=== PATIENT | female | born 1945 | race Caucasian/White ===

== ENCOUNTER → 2018-05-23 | Outpatient (CLI) | payer MEDICARE ==
--- NOTE | 2018-05-23 15:58 | XR ---
Lumbosacral spine HISTORY: Low back pain 5 views of the lumbosacral spine Correlation CT abdomen pelvis 12/17/2015 There is a dextroscoliosis centered at the mid lumbar spine. Minimal anterolisthesis grade 1 L4-5. Mcmillan spect transitional vertebral body at the lumbosacral junction. There is multilevel spondylosis presen t. Sclerosis present in the posterior elements compatible with facet arthropathy. Vascular calcificat ions are present in the aortoiliac distribution. Loss of disc height at the intervertebral levels. IMPRESSION: Degenerative disc disease, spinal listhesis, facet arthropathy. Correlate with plain film prior to any intervention.
== END ==
LOC: RADXRMAIN 15:25
PROVIDERS: ATTEND Family Medicine
DX: M43.16 Spondylolisthesis, lumbar region (principal); M51.36 Other intervertebral disc degeneration, lumbar region; M46.96 Unspecified inflammatory spondylopathy, lumbar region
CPT/HCPCS: 72110

== ENCOUNTER → 2018-09-23 | Outpatient (CLI) | payer MEDICARE ==
--- NOTE | 2018-09-23 16:31 | MR ---
MRI CERVICAL SPINE: CLINICAL HISTORY: Spinal stenosis with myelopathy and ataxia per order. Headache with neck pain causi ng pain or weakness into both arms and fingers per patient. TECHNIQUE: Multiplanar, multisequence imaging of the cervical spine is performed without IV contrast. COMPARISON: MRI cervical spine March 27, 2014. FINDINGS: Coronal images redemonstrate slight S-shaped scoliotic curvature. Sagittal images of the ce rvical spine show the craniocervical junction to remain within normal limits. The cervical and upper thoracic spinal cord is normal in course, caliber, and signal. Vertebral alignment is anatomic. Th e vertebral body and intravertebral disk heights are normal. Posterior disc herniations effacing ant erior thecal sac at C4-C5 and C5-C6 levels on sagittal images. The bone marrow signal intensity is wi thin normal limits. Mild multilevel anterior spurring is present. Axial images show the C2-C3 level to remain within normal limits. Axial images at C3-C4 level show tiny central disc protrusion mildly effacing anterior thecal sac wit h uncovertebral facet degenerative changes bilaterally causing mild left greater than right neural fo raminal narrowing. Axial images at C4-C5 level show broad-based central disc protrusion effacing anterior thecal sac up to ventral surface of spinal cord on current study with advanced left-sided neural foraminal narrowin g and mild right-sided neural foraminal narrowing. There is progression from prior MRI noted. Axial images at C5-C6 level show left paracentral disc protrusion effacing anterior thecal sac up to ventral surface of spinal cord which is indented on axial image 23 with moderate left and mild right- sided neural foraminal narrowing seen, progression from prior MRI is noted. Axial images at C6-C7 and C7-T1 levels remain within normal limits. IMPRESSION: Redemonstration of degenerative changes C4-C5 and C5-C6 level with interval progression f rom prior MRI and asymmetric more prominent left-sided neural foraminal narrowing noted.
== END | disposition home or self-care (01) ==
LOC: RADMRIMAIN 15:45
PROVIDERS: ATTEND Psychiatry & Neurology Neurology
DX: M48.02 Spinal stenosis, cervical region (principal); M47.812 Spondylosis without myelopathy or radiculopathy, cervical region
CPT/HCPCS: 72141

== ENCOUNTER 2018-09-27 16:23 | Inpatient (IN) | payer MEDICARE ==
[2018-09-27] MEDS ORDERED: IBUPROFEN 600 MG TAB PO STA (17:32)
[2018-09-27] MEDS ORDERED: ACETAMINOPHEN TAB 500 MG TAB PO STA (17:32)
--- NOTE | 2018-09-27 17:40 | ED ---
General Adult HPI - General Chief complaint: Weakness Stated complaint: dizziness/dry cough Time Seen by Provider: 09/27/18 16:30 Source: patient, RN notes reviewed Mode of arrival: wheelchair Limitations: no limitations - History of Present Illness Initial comments: This is a 73-year-old female presents emergency Department with a past medical history of recent tremors. Patient states she started being worked up for those by neurologist and has had a recent MRI. Patient states over the last couple of days tremors of gotten considerably worse and she's also had the chills. Patient also states she's had a little bit of cough and has been having urinary incontinence which is normal but at a greater frequency the last 2 days. Patient complains of some abdominal fullness in the upper abdomen. Patient denies any nausea vomiting or diarrhea. Patient denies any sputum production with cough. Patient denies any chest pain or palpitations. Patient does complain of generalized weakness. Patient denies any headache patient denies numbness weakness patient denies any lightheadedness dizziness or near- syncopal episode. Patient states she has edema to both legs but no worse today than any other day. - Related Data Home Medications Medication Instructions Recorded Confirmed Cholecalciferol (Vitamin D3) 5,000 unit PO DAILY 09/03/14 09/27/18 [Vitamin D3] Metoprolol Tartrate [Lopressor] 100 mg PO BID 09/03/14 09/27/18 Nitroglycerin [Nitrostat] 0.4 mg PO Q5M PRN 09/03/14 09/27/18 Famotidine [Pepcid] 20 mg PO DAILY 09/27/18 09/27/18 Furosemide [Lasix] 20 mg PO MOWEFR 09/27/18 09/27/18 Levothyroxine Sodium [Synthroid] 112 mcg PO DAILY 09/27/18 09/27/18 Losartan Potassium 50 mg PO DAILY 09/27/18 09/27/18 Ranitidine HCl 150 mg PO BID 09/27/18 09/27/18 Warfarin Sodium 6 mg PO MOWEFR 09/27/18 09/27/18 Warfarin [Coumadin] 2.5 mg PO SUTUTHSA 09/27/18 09/27/18 Allergies Allergy/AdvReac Type Severity Reaction Status Date / Time erythromycin base Allergy Unknown Verified 09/27/18 16:56 [From E-Mycin] Penicillins Allergy Unknown Verified 09/27/18 16:56 Sulfa (Sulfonamide Allergy Unknown Verified 09/27/18 16:56 Antibiotics) adhesive AdvReac BRUISES, Verified 09/27/18 16:56 ITCHING hydrocodone AdvReac AVOIDS Verified 09/27/18 16:56 NARCOTICS D/T PERSONAL REASONS NITRO PATCHES AdvReac HEADACHES Uncoded 03/11/15 17:05 Review of Systems ROS Statement: Those systems with pertinent positive or pertinent negative responses have been documented in the HPI. ROS Other: All systems not noted in ROS Statement are negative. Past Medical History Past Medical History: Atrial Fibrillation, Fibromyalgia, GERD/Reflux, GI Bleed, Hearing Disorder / Deafness, Hyperlipidemia, Hypertension, Osteoarthritis (OA), Skin Disorder, Sleep Apnea/CPAP/BIPAP, Thyroid Disorder Additional Past Medical History / Comment(s): 02-26-15 ADM W/GI BLEED. Dizziness , Neck Pain; ODILON but no PAP; Gastric Ulcers, Hiatal Hernia; HX Graves dx. Anemia. Complex Vertebral Subluxation; EDEMA PATRICIA LEGS/FEET. GALLBLADDER PROB 2014. HX OF FALLS. ITCHING OF SKIN SINCE RECENT HOSPITAL STAY. History of Any Multi-Drug Resistant Organisms: None Reported Past Surgical History: Heart Catheterization, Orthopedic Surgery Additional Past Surgical History / Comment(s): Cardioversion for afib, PATRICIA KNEE arthroscopic surgeries, Spur removal R foot. Cataract removal patricia L eyes with ocular implants. R hand cyst removal, R foot toenail removal. Injections to neck /bilateral knees. Past Anesthesia/Blood Transfusion Reactions: Previous Problems w/ Anesthesia Additional Past Anesthesia/Blood Transfusion Reaction / Comment(s): Pt states after a knee surgery 2002 she had "trouble coming out of anesthesia and was really cold." Pt states she has not recieved blood. Past Psychological History: Depression Smoking Status: Unknown if ever smoked Past Alcohol Use History: Rare Past Drug Use History: None Reported - Past Family History Father Family Medical History: Coronary Artery Disease (CAD), Diabetes Mellitus, Liver Disease Additional Family Medical History / Comment(s): Father after recieving xray that damaged his liver. Mother Family Medical History: Dementia, Osteoarthritis (OA) Additional Family Medical History / Comment(s): Mother of alzhiemers at age 73yrs. General Exam - General Exam Comments Initial Comments: GENERAL: Patient is well-developed and well-nourished. Patient is nontoxic and well- hydrated and is in mild distress. ENT: Neck is soft and supple. No significant lymphadenopathy is noted. Oropharynx is clear. Moist mucous membranes. Neck has full range of motion without eliciting any pain. EYES: The sclera were anicteric and conjunctiva were pink and moist. Extraocular movements were intact and pupils were equal round and reactive to light. Eyelids were unremarkable. PULMONARY: Unlabored respirations. Good breath sounds bilaterally. No audible rales rhonchi or wheezing was noted. CARDIOVASCULAR: There is a regular rate and rhythm without any murmurs gallops or rubs. ABDOMEN: Soft and nontender with normal bowel sounds. SKIN: Skin is clear with no lesions or rashes and otherwise unremarkable. NEUROLOGIC: Patient is alert and oriented x3. Cranial nerves II through XII are grossly intact. Motor and sensory are also intact. Normal speech, volume and content. Symmetrical smile. MUSCULOSKELETAL: Normal extremities with adequate strength and full range of motion. No lower extremity swelling or edema. No calf tenderness. LYMPHATICS: No significant lymphadenopathy is noted PSYCHIATRIC: Normal psychiatric evaluation. Normal interpersonal interactions appears functionally intact in deals appropriately with others. No signs of depression. No signs of anxiety. Limitations: no limitations Course Vital Signs 09/27/18 09/27/18 09/27/18 16:26 17:14 17:39 Temperature 98.4 F 101.5 F H Pulse Rate 134 H Pulse Rate [ 107 H Neurology Teacher ] Respiratory 18 Rate Blood Pressure 159/94 O2 Sat by Pulse 97 Oximetry 09/27/18 09/27/18 18:09 19:21 Temperature 98.4 F Pulse Rate 105 H 100 Pulse Rate [ Neurology Teacher ] Respiratory 18 20 Rate Blood Pressure 162/82 152/91 O2 Sat by Pulse 98 98 Oximetry Medical Decision Making - Medical Decision Making EKG shows atrial for ablation with rapid ventricular response at 109 bpm QRS 78 QT interval 360 QTC is 484. - Lab Data Result diagrams: 09/27/18 17:00 09/27/18 17:00 Lab Results 09/27/18 09/27/18 09/27/18 Range/Units 17:00 17:00 17:00 WBC 6.0 (3.8-10.6) k/uL RBC 3.66 L (3.80-5.40) m/uL Hgb 11.7 (11.4-16.0) gm/dL Hct 36.8 (34.0-46.0) % MCV 100.5 H (80.0-100.0) fL MCH 32.0 (25.0-35.0) pg MCHC 31.9 (31.0-37.0) g/dL RDW 13.7 (11.5-15.5) % Plt Count 187 (150-450) k/uL Neutrophils % 75 % Lymphocytes % 12 % Monocytes % 10 % Eosinophils % 1 % Basophils % 0 % Neutrophils # 4.4 (1.3-7.7) k/uL Lymphocytes # 0.7 L (1.0-4.8) k/uL Monocytes # 0.6 (0-1.0) k/uL Eosinophils # 0.1 (0-0.7) k/uL Basophils # 0.0 (0-0.2) k/uL PT (9.0-12.0) sec INR (<1.2) APTT (22.0-30.0) sec Sodium 136 L (137-145) mmol/L Potassium 4.4 (3.5-5.1) mmol/L Chloride 103 (98-107) mmol/L Carbon Dioxide 23 (22-30) mmol/L Anion Gap 10 mmol/L BUN 16 (7-17) mg/dL Creatinine 0.66 (0.52-1.04) mg/dL Est GFR (CKD-EPI)AfAm >90 (>60 ml/min/1.73 sqM) Est GFR (CKD-EPI)NonAf 87 (>60 ml/min/1.73 sqM) Glucose 104 H (74-99) mg/dL Plasma Lactic Acid Walter (0.7-2.0) mmol/L Calcium 9.1 (8.4-10.2) mg/dL Total Bilirubin 1.1 (0.2-1.3) mg/dL AST 44 H (14-36) U/L ALT 32 (9-52) U/L Alkaline Phosphatase 73 (38-126) U/L Total Protein 7.1 (6.3-8.2) g/dL Albumin 3.9 (3.5-5.0) g/dL Urine Color Urine Appearance (Clear) Urine pH (5.0-8.0) Ur Specific [place] (1.001-1.035) Urine Protein (Negative) Urine Glucose (UA) (Negative) Urine Ketones (Negative) Urine Blood (Negative) Urine Nitrite (Negative) Urine Bilirubin (Negative) Urine Urobilinogen (<2.0) mg/dL Ur Leukocyte Esterase (Negative) Urine RBC (0-5) /hpf Urine WBC (0-5) /hpf Ur Squamous Epith Cells (0-4) /hpf Urine Bacteria (None) /hpf Urine Mucus (None) /hpf Influenza Type A RNA Detected H (Not Detectd) Influenza Type B (PCR) Not Detected (Not Detectd) 09/27/18 09/27/18 09/27/18 Range/Units 17:00 17:00 19:15 WBC (3.8-10.6) k/uL RBC (3.80-5.40) m/uL Hgb (11.4-16.0) gm/dL Hct (34.0-46.0) % MCV (80.0-100.0) fL MCH (25.0-35.0) pg MCHC (31.0-37.0) g/dL RDW (11.5-15.5) % Plt Count (150-450) k/uL Neutrophils % % Lymphocytes % % Monocytes % % Eosinophils % % Basophils % % Neutrophils # (1.3-7.7) k/uL Lymphocytes # (1.0-4.8) k/uL Monocytes # (0-1.0) k/uL Eosinophils # (0-0.7) k/uL Basophils # (0-0.2) k/uL PT 29.1 H (9.0-12.0) sec INR 3.0 H (<1.2) APTT 31.0 H (22.0-30.0) sec Sodium (137-145) mmol/L Potassium (3.5-5.1) mmol/L Chloride (98-107) mmol/L Carbon Dioxide (22-30) mmol/L Anion Gap mmol/L BUN (7-17) mg/dL Creatinine (0.52-1.04) mg/dL Est GFR (CKD-EPI)AfAm (>60 ml/min/1.73 sqM) Est GFR (CKD-EPI)NonAf (>60 ml/min/1.73 sqM) Glucose (74-99) mg/dL Plasma Lactic Acid Walter 1.7 (0.7-2.0) mmol/L Calcium (8.4-10.2) mg/dL Total Bilirubin (0.2-1.3) mg/dL AST (14-36) U/L ALT (9-52) U/L Alkaline Phosphatase (38-126) U/L Total Protein (6.3-8.2) g/dL Albumin (3.5-5.0) g/dL Urine Color Yellow Urine Appearance Cloudy H (Clear) Urine pH 8.5 H (5.0-8.0) Ur Specific [place] 1.019 (1.001-1.035) Urine Protein Trace H (Negative) Urine Glucose (UA) Negative (Negative) Urine Ketones 1+ H (Negative) Urine Blood Trace H (Negative) Urine Nitrite Negative (Negative) Urine Bilirubin Negative (Negative) Urine Urobilinogen <2.0 (<2.0) mg/dL Ur Leukocyte Esterase Negative (Negative) Urine RBC 13 H (0-5) /hpf Urine WBC 2 (0-5) /hpf Ur Squamous Epith Cells 3 (0-4) /hpf Urine Bacteria Occasional H (None) /hpf Urine Mucus Occasional H (None) /hpf Influenza Type A RNA (Not Detectd) Influenza Type B (PCR) (Not Detectd) Disposition Clinical Impression: Influenza, Generalized weakness Disposition: ADMITTED IP TO THIS HOSP Referrals: Troy Benoit DO [Primary Care Provider] - 1-2 days Time of Disposition: 21:02
[2018-09-27 17:58] LABS: Basophils % (A) 0 %; Eosinophils # (A) 0.1 k/uL (0-0.7); Eosinophils % (A) 1 %; HCT 36.8 % (34.0-46.0); HGB 11.7 gm/dL (11.4-16.0); Lymphocytes # (A) 0.7 k/uL (1.0-4.8); Lymphocytes % (A) 12 %; MCHC 31.9 g/dL (31.0-37.0); MCV 100.5 fL (80.0-100.0); Mean Platelet Volume 6.7; Monocytes # (A) 0.6 k/uL (0-1.0); Monocytes % (A) 10 %; Neutrophils # (A) 4.4 k/uL (1.3-7.7); Neutrophils % (A) 75 %; Platelet Count 187 k/uL (150-450); RBC 3.66 m/uL (3.80-5.40); RDW 13.7 % (11.5-15.5)
[2018-09-27 18:04] LABS: Prothrombin Time 29.1 sec (9.0-12.0)
[2018-09-27 18:11] LABS: ALT 32 U/L (9-52); AST 44 U/L (14-36); Albumin 3.9 g/dL (3.5-5.0); Alkaline Phosphatase 73 U/L (38-126); Anion Gap 10 mmol/L; Blood Urea Nitrogen 16 mg/dL (7-17); Calcium 9.1 mg/dL (8.4-10.2); Carbon Dioxide 23 mmol/L (22-30); Chloride 103 mmol/L (98-107); Glucose 104 mg/dL (74-99); Sodium 136 mmol/L (137-145); Total Bilirubin 1.1 mg/dL (0.2-1.3); Total Protein 7.1 g/dL (6.3-8.2)
[2018-09-27 18:16] LABS: Potassium 4.4 mmol/L (3.5-5.1)
[2018-09-27 19:41] LABS: Appearance,Urine Cloudy (Clear); Bacteria,Urine Occasional /hpf; Bilirubin,Urine Negative (Negative); Blood,Urine Trace (Negative); Color,Urine Yellow; Glucose,Urine (UA) Negative (Negative); Ketones,Urine 1+ (Negative); Leukocyte Esterase,Urine Negative (Negative); Mucus,Urine Occasional /hpf; Nitrite,Urine Negative (Negative); PH, Urine 8.5 (5.0-8.0); Protein,Urine Trace (Negative); RBC,Urine 13 /hpf (0-5); Specific Gravity,Urine 1.019 (1.001-1.035); Squamous Epithelial Cell,Urine 3 /hpf (0-4); Urobilinogen,Urine <2.0 mg/dL (<2.0); WBC,Urine 2 /hpf (0-5)
--- NOTE | 2018-09-27 19:48 | XR ---
EXAMINATION: XR chest 2V DATE AND TIME: 09/27/2018 7:41 PM CLINICAL INDICATION: PHH; Difficulty breathing TECHNIQUE: Departmental protocol COMPARISON: None FINDINGS: The lungs are clear. The pleural spaces are negative. The cardiac silhouette is moderately enlarged. The aorta is tortuous. The skeletal structures and sof t tissues are negative for acute findings. IMPRESSION: NO ACUTE PLEURAL-PARENCHYMAL PROCESS.
[2018-09-27] MEDS ORDERED: OSELTAMIVIR 75 MG CAP PO STA (21:01)
[2018-09-27] MEDS ORDERED: SODIUM CHLORIDE 0.9% 1,000 ML IV ONE (21:02)
[2018-09-27 22:58] VITALS: BMI 31.4
[2018-09-28] MEDS ORDERED: diphenhydrAMINE 25 MG CAP PO PRN (00:03)
[2018-09-28] MEDS: METOPROLOL TARTRATE 50 MG TAB PO SCH ×3 (00:36→20:09)
[2018-09-28] MEDS: ACETAMINOPHEN TAB 325 MG TAB PO PRN ×3 (04:19→20:09)
[2018-09-28] MEDS: LEVOTHYROXINE 112 MCG TAB PO SCH (06:08)
[2018-09-28 07:26] LABS: INR 2.3 (<1.2); Prothrombin Time 22.7 sec (9.0-12.0)
[2018-09-28] MEDS: OSELTAMIVIR 75 MG CAP PO SCH ×2 (08:47→20:08)
[2018-09-28] MEDS: LOSARTAN 50 MG TAB PO SCH (08:47)
[2018-09-28] MEDS: FAMOTIDINE 20 MG TAB PO SCH (08:48)
--- NOTE | 2018-09-28 11:48 | P.HPIM ---
History of Present Illness this is a pleasant 73 years old female with past medical history of atrial fibrillation on warfarin, COPD, fibromyalgia, GERD, GI bleed, HTN, HLP, hypothyroidism, as her arthritis.patient presents with a few days of generalized weakness and body aches, headache, dry cough was started making some clear fluids today. Patient denies chest pain. On examination she has expiratory wheezing, scattered on both sides.however she is saturating 97% on 4 L. Also she has fever on admission on admission patient had fever of 101.5. CBC unremarkable with normal WBC, unremarkable BMP with normal liver enzymes. INR 2.3. And detected influenza antigen.chest x-ray no acute process. EKG atrial fibrillation with RVRat 109 Review of Systems CONSTITUTIONAL: No fever, no malaise, no fatigue. HEENT: No recent visual problems or hearing problems. Denied any sore throat. CARDIOVASCULAR: No orthopnea, PND, no palpitations, no syncope. PULMONARY: No shortness of breath, no cough, no hemoptysis. GASTROINTESTINAL: No diarrhea, no nausea, no vomiting, no abdominal pain. Normoactive bowel sounds. NEUROLOGICAL: No headaches, no weakness, no numbness. HEMATOLOGICAL: Denies any bleeding or petechiae. GENITOURINARY: Denies any burning micturition, frequency, or urgency. MUSCULOSKELETAL/RHEUMATOLOGICAL: Denies any joint pain, swelling, or any muscle pain. ENDOCRINE: Denies any polyuria or polydipsia. Past Medical History Past Medical History: Atrial Fibrillation, COPD, Fibromyalgia, GERD/Reflux, GI Bleed, Hyperlipidemia, Hypertension, Osteoarthritis (OA), Skin Disorder, Sleep Apnea/CPAP/BIPAP, Thyroid Disorder Additional Past Medical History / Comment(s): 02-26-15 ADM W/GI BLEED. Dizziness , Neck Pain; ODILON but no PAP; Gastric Ulcers, Hiatal Hernia; HX Graves dx. Anemia. Complex Vertebral Subluxation; EDEMA PATRICIA LEGS/FEET. GALLBLADDER PROB 2014. HX OF FALLS. ITCHING OF SKIN SINCE RECENT HOSPITAL STAY. Carpal tunnel History of Any Multi-Drug Resistant Organisms: None Reported Past Surgical History: Heart Catheterization, Orthopedic Surgery Additional Past Surgical History / Comment(s): Cardioversion for afib, PATRICIA KNEE arthroscopic surgeries, Spur removal R foot. Cataract removal patricia L eyes with ocular implants. R hand cyst removal, R foot toenail removal. Injections to neck /bilateral knees. Past Anesthesia/Blood Transfusion Reactions: Previous Problems w/ Anesthesia Additional Past Anesthesia/Blood Transfusion Reaction / Comment(s): Pt states after a knee surgery 2002 she had "trouble coming out of anesthesia and was really cold." Pt states she has not recieved blood. 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 Smoking Status: Former smoker Past Alcohol Use History: Rare Past Drug Use History: None Reported - Past Family History Father Family Medical History: Coronary Artery Disease (CAD), Diabetes Mellitus, Liver Disease Additional Family Medical History / Comment(s): Father after recieving xray that damaged his liver. Mother Family Medical History: Dementia, Osteoarthritis (OA) Additional Family Medical History / Comment(s): Mother of alzhiemers at age 73yrs. Medications and Allergies Home Medications Medication Instructions Recorded Confirmed Type Cholecalciferol (Vitamin D3) 5,000 unit PO DAILY 09/03/14 09/27/18 History [Vitamin D3] Metoprolol Tartrate [Lopressor] 100 mg PO BID 09/03/14 09/27/18 History Nitroglycerin [Nitrostat] 0.4 mg PO Q5M PRN 09/03/14 09/27/18 History Famotidine [Pepcid] 20 mg PO DAILY 09/27/18 09/27/18 History Furosemide [Lasix] 20 mg PO MOWEFR 09/27/18 09/27/18 History Levothyroxine Sodium [Synthroid] 112 mcg PO DAILY 09/27/18 09/27/18 History Losartan Potassium 50 mg PO DAILY 09/27/18 09/27/18 History Ranitidine HCl 150 mg PO BID 09/27/18 09/27/18 History Warfarin Sodium 6 mg PO MOWEFR 09/27/18 09/27/18 History Warfarin [Coumadin] 2.5 mg PO SUTUTHSA 09/27/18 09/27/18 History Allergies Allergy/AdvReac Type Severity Reaction Status Date / Time erythromycin base Allergy Unknown Verified 09/27/18 16:56 [From E-Mycin] Penicillins Allergy Unknown Verified 09/27/18 16:56 Sulfa (Sulfonamide Allergy Unknown Verified 09/27/18 16:56 Antibiotics) adhesive AdvReac BRUISES, Verified 09/27/18 16:56 ITCHING hydrocodone AdvReac AVOIDS Verified 09/27/18 16:56 NARCOTICS D/T PERSONAL REASONS NITRO PATCHES AdvReac HEADACHES Uncoded 03/11/15 17:05 Physical Exam Vitals: Vital Signs Temp Pulse Pulse Pulse Resp BP BP 09/28/18 08:01 09/28/18 06:11 99.2 F 09/28/18 04:15 100.7 F H 79 20 158/92 09/28/18 00:00 108 H 24 09/27/18 22:36 97 F L 118 H 18 158/79 09/27/18 21:56 98.3 F 107 H 20 146/98 09/27/18 21:25 109 H 20 121/55 09/27/18 19:21 98.4 F 100 20 152/91 09/27/18 18:09 105 H 18 162/82 09/27/18 17:39 107 H 09/27/18 17:14 101.5 F H 09/27/18 16:26 98.4 F 134 H 18 159/94 Pulse Ox 09/28/18 08:01 97 09/28/18 06:11 09/28/18 04:15 99 09/28/18 00:00 09/27/18 22:36 97 09/27/18 21:56 100 09/27/18 21:25 99 09/27/18 19:21 98 09/27/18 18:09 98 09/27/18 17:39 09/27/18 17:14 09/27/18 16:26 97 Intake and Output 09/27/18 09/28/18 09/28/18 22:59 06:59 14:59 Intake Total 100 300 Balance 100 300 Intake: Amount of Fluid Infused ( 100 ml) Intake, IV Titration 300 Amount Sodium Chloride 0.9% 1, 300 000 ml @ 75 mls/hr IV . [id number] ONE Rx#:[id number] Other: Voiding Method Toilet Toilet Diaper Diaper # Voids 1 Weight 91 kg GENERAL: The patient is alert and oriented x3, not in any acute distress. Well developed, well nourished. HEENT: Pupils are round and equally reacting to light. EOMI. No scleral icterus. No conjunctival pallor. Normocephalic, atraumatic. No pharyngeal erythema. No thyromegaly. CARDIOVASCULAR: S1 and S2 present. No murmurs, rubs, or gallops. PULMONARY: Chest is clear to auscultation, no wheezing or crackles. ABDOMEN: Soft, nontender, nondistended, normoactive bowel sounds. No palpable organomegaly. MUSCULOSKELETAL: No joint swelling or deformity. EXTREMITIES: No cyanosis, clubbing, or pedal edema. NEUROLOGICAL: Gross neurological examination did not reveal any focal deficits. SKIN: No rashes. Results CBC & Chem 7: 09/27/18 17:00 09/27/18 17:00 Labs: Abnormal Lab Results - Last 24 Hours (Table) 09/27/18 09/27/18 09/27/18 Range/Units 17:00 17:00 17:00 RBC 3.66 L (3.80-5.40) m/uL MCV 100.5 H (80.0-100.0) fL Lymphocytes # 0.7 L (1.0-4.8) k/uL PT (9.0-12.0) sec INR (<1.2) APTT (22.0-30.0) sec Sodium 136 L (137-145) mmol/L Glucose 104 H (74-99) mg/dL AST 44 H (14-36) U/L Urine Appearance (Clear) Urine pH (5.0-8.0) Urine Protein (Negative) Urine Ketones (Negative) Urine Blood (Negative) Urine RBC (0-5) /hpf Urine Bacteria (None) /hpf Urine Mucus (None) /hpf Influenza Type A RNA Detected H (Not Detectd) 09/27/18 09/27/18 09/28/18 Range/Units 17:00 19:15 07:09 RBC (3.80-5.40) m/uL MCV (80.0-100.0) fL Lymphocytes # (1.0-4.8) k/uL PT 29.1 H 22.7 H (9.0-12.0) sec INR 3.0 H 2.3 H (<1.2) APTT 31.0 H (22.0-30.0) sec Sodium (137-145) mmol/L Glucose (74-99) mg/dL AST (14-36) U/L Urine Appearance Cloudy H (Clear) Urine pH 8.5 H (5.0-8.0) Urine Protein Trace H (Negative) Urine Ketones 1+ H (Negative) Urine Blood Trace H (Negative) Urine RBC 13 H (0-5) /hpf Urine Bacteria Occasional H (None) /hpf Urine Mucus Occasional H (None) /hpf Influenza Type A RNA (Not Detectd) Microbiology - Last 24 Hours (Table) 09/27/18 19:15 Urine Culture - Preliminary Urine,Clean Catch Thrombosis Risk Factor Assmnt - Choose All That Apply Any of the Below Risk Factors Present?: Yes Each Factor Represents 1 point: Abnormal pulmonary function (COPD), Obesity ( BMI >25) Other Risk Factors: Yes Each Risk Factor Represents 2 Points: Age 61-74 years Other congenital or acquired thrombophilia - If yes, enter type in comment: No Thrombosis Risk Factor Assessment Total Risk Factor Score: 4 Thrombosis Risk Factor Assessment Level: Moderate Risk Assessment and Plan Assessment: acute influenza generalized weakness History of COPD in mildacute exacerbation chronic atrial fibrillation , with mild RVR.on warfarin History of abnormal IG History of GERD Essential hypertension Hyperlipidemia Hypothyroidism History of GI bleed Plan: this is a pleasant 73 years old female who presents because of influenza and generalized weakness.continue with Tamiflu and ceftriaxone, since sputum for culture, continue with steroids and IV fluids. Call physical therapy evaluation Labs and medication were reviewed.. Continue same treatment. Continue with symptomatic treatment. Resume home medication. Monitor lytes and vitals. DVT and GI prophylaxis. Further recommendations of the clinical course of the patient DVT prophylaxis: warfarin GI Prophylaxis: Pepcid PT/OT: Pending Prognosis is guarded
[2018-09-28] MEDS: SODIUM CHLORIDE 0.9% 1,000 ML IV SCH (15:36)
[2018-09-28] MEDS: methylPREDNISolone SOD SUCCI 40 MG/ML 1 ML VIAL IV SCH ×2 (17:24→23:10)
[2018-09-28] MEDS ORDERED: WARFARIN 3 MG TAB PO SCH ×2 (18:00)
[2018-09-28] MEDS ORDERED: IPRATROPIUM-ALBUTEROL 3 ML NEB INHALATION PRN (19:33)
[2018-09-28] MEDS: IPRATROPIUM-ALBUTEROL 3 ML NEB INHALATION SCH (20:30)
[2018-09-28] MEDS ORDERED: FUROSEMIDE 10 MG/ML 2 ML VIAL IV ONE (21:06)
[2018-09-28] MEDS ORDERED: IBUPROFEN 600 MG TAB PO SCH (22:00)
[2018-09-28] MEDS: BENZOCAINE/MENTHOL LOZENG 1 EACH LOZENGE MUCOUS MEM PRN (23:06)
[2018-09-28] MEDS ORDERED: IBUPROFEN 600 MG TAB PO PRN (23:08)
[2018-09-29] MEDS: ACETAMINOPHEN TAB 325 MG TAB PO PRN ×2 (01:20→20:04)
[2018-09-29] MEDS: SODIUM CHLORIDE 0.9% 1,000 ML IV SCH ×2 (01:20→15:58)
[2018-09-29] MEDS: LEVOTHYROXINE 112 MCG TAB PO SCH (06:00)
[2018-09-29 07:44] LABS: Basophils % (A) 0 %; Eosinophils % (A) 0 %; HCT 36.7 % (34.0-46.0); HGB 11.5 gm/dL (11.4-16.0); Lymphocytes # (A) 0.6 k/uL (1.0-4.8); Lymphocytes % (A) 13 %; MCH 32.2 pg (25.0-35.0); MCHC 31.3 g/dL (31.0-37.0); MCV 102.8 fL (80.0-100.0); Macrocytosis Slight; Mean Platelet Volume 7.1; Monocytes # (A) 0.1 k/uL (0-1.0); Monocytes % (A) 3 %; Neutrophils % (A) 83 %; Platelet Count 143 k/uL (150-450); RBC 3.57 m/uL (3.80-5.40); RDW 13.7 % (11.5-15.5); WBC 4.8 k/uL (3.8-10.6)
[2018-09-29 07:47] LABS: INR 1.7 (<1.2); Prothrombin Time 17.2 sec (9.0-12.0)
[2018-09-29 07:54] LABS: Anion Gap 8 mmol/L; Blood Urea Nitrogen 18 mg/dL (7-17); Calcium 8.4 mg/dL (8.4-10.2); Carbon Dioxide 27 mmol/L (22-30); Chloride 103 mmol/L (98-107); Glucose 167 mg/dL (74-99); Potassium 4.3 mmol/L (3.5-5.1); Sodium 138 mmol/L (137-145)
--- NOTE | 2018-09-29 08:05 | P.PN ---
Subjective this is a pleasant 73 years old female with past medical history of atrial fibrillation on warfarin, COPD, fibromyalgia, GERD, GI bleed, HTN, HLP, hypothyroidism, as her arthritis.patient presents with a few days of generalized weakness and body aches, headache, dry cough was started making some clear fluids today. Patient denies chest pain. On examination she has expiratory wheezing, scattered on both sides.however she is saturating 97% on 4 L. Also she has fever on admission on admission patient had fever of 101.5. CBC unremarkable with normal WBC, unremarkable BMP with normal liver enzymes. INR 2.3. And detected influenza antigen.chest x-ray no acute process. EKG atrial fibrillation with RVRat 109 09/29/2018 Patient still complains of generalized weakness and dyspneic. She is coughing and start making some white phlegm, and we will send sputum for culture. No abdominal pain, nausea vomiting or diarrhea. Patient denies chest pain however she still complaining of from myalgia all over and mild to moderate headache. She feels general malaise. She had fever yesterday of 103.5 F. The synovitis looks stable. Continue with IV hydration and symptomatic treatment. We will check chest x-ray this morning. And we'll give her an extra dose of Coumadin for her atrial fibrillation as her INR today is at 1.7. Keep monitor labs and INR levels. Continue with steroids and Tamiflu which she is taking currently. Review of systems CONSTITUTIONAL: No fever, no malaise, no fatigue. HEENT: No recent visual problems or hearing problems. Denied any sore throat. CARDIOVASCULAR: No orthopnea, PND, no palpitations, no syncope. PULMONARY: no hemoptysis. GASTROINTESTINAL: No diarrhea, no nausea, no vomiting, no abdominal pain. Normoactive bowel sounds. NEUROLOGICAL: No headaches, no weakness, no numbness. HEMATOLOGICAL: Denies any bleeding or petechiae. GENITOURINARY: Denies any burning micturition, frequency, or urgency. ENDOCRINE: Denies any polyuria or polydipsia. Medication: Tylenol, albuterol, ceftriaxone, Benadryl, Pepcid, levothyroxine, losartan, Solu-Medrol, metoprolol, Tamiflu, normal saline, and warfarin. Objective - Vital Signs Vital signs: Vital Signs Temp 97.3 F L 09/29/18 06:02 Pulse 80 09/29/18 05:00 Resp 18 09/29/18 05:00 BP 145/76 09/29/18 05:00 Pulse Ox 97 09/29/18 05:00 Intake & Output 09/28/18 09/29/18 09/29/18 18:59 06:59 18:59 Intake Total 600 Output Total 1200 Balance -600 Weight 100 kg Intake: Intake, IV Titration 600 Amount Sodium Chloride 0.9% 1, 600 000 ml @ 75 mls/hr IV . [id number] [facility] Rx#:[id number] Output: Urine 1200 Other: Voiding Method Toilet Toilet Diaper Diaper # Voids 2 3 - Exam -GENERAL: The patient is alert and oriented x3, not in any acute distress. Generally weak HEENT: Pupils are round and equally reacting to light. EOMI. No scleral icterus. No conjunctival pallor. Normocephalic, atraumatic. No pharyngeal erythema. No thyromegaly. CARDIOVASCULAR: S1 and S2 present. No murmurs, rubs, or gallops. PULMONARY: Chest is clear to auscultation, no wheezing or crackles. ABDOMEN: Soft, nontender, nondistended, normoactive bowel sounds. No palpable organomegaly. MUSCULOSKELETAL: No joint swelling or deformity. EXTREMITIES: No cyanosis, clubbing, or pedal edema. NEUROLOGICAL: Gross neurological examination did not reveal any focal deficits. SKIN: No rashes. - Labs CBC & Chem 7: 09/29/18 07:09 09/29/18 07:09 Labs: Abnormal Lab Results - Last 24 Hours (Table) 09/29/18 09/29/18 09/29/18 Range/Units 07:09 07:09 07:09 RBC 3.57 L (3.80-5.40) m/uL MCV 102.8 H (80.0-100.0) fL Plt Count 143 L (150-450) k/uL Lymphocytes # 0.6 L (1.0-4.8) k/uL PT 17.2 H (9.0-12.0) sec INR 1.7 H (<1.2) BUN 18 H (7-17) mg/dL Glucose 167 H (74-99) mg/dL Microbiology - Last 24 Hours (Table) 09/27/18 19:15 Urine Culture - Final Urine,Clean Catch 09/27/18 17:00 Blood Culture - Preliminary Blood No Growth after 24 hours Assessment and Plan Assessment: acute influenza generalized weakness and malaise History of COPD in mild acute exacerbation chronic atrial fibrillation , with mild RVR.on warfarin History of GERD Essential hypertension Hyperlipidemia Hypothyroidism History of GI bleed Plan: this is a pleasant 73 years old female who presents because of influenza and generalized weakness.continue with Tamiflu and ceftriaxone, since sputum for culture, continue with steroids and IV fluids. Call physical therapy evaluation Labs and medication were reviewed.. Continue same treatment. Continue with symptomatic treatment. Resume home medication. Monitor lytes and vitals. DVT and GI prophylaxis. Further recommendations of the clinical course of the patient DVT prophylaxis: warfarin GI Prophylaxis: Pepcid PT/OT: Pending Prognosis is guarded
[2018-09-29] MEDS: methylPREDNISolone SOD SUCCI 40 MG/ML 1 ML VIAL IV SCH ×2 (08:13→15:59)
[2018-09-29] MEDS: FAMOTIDINE 20 MG TAB PO SCH (08:13)
[2018-09-29] MEDS: METOPROLOL TARTRATE 50 MG TAB PO SCH ×2 (08:13→18:52)
[2018-09-29] MEDS: OSELTAMIVIR 75 MG CAP PO SCH ×2 (08:13→20:04)
[2018-09-29] MEDS: LOSARTAN 50 MG TAB PO SCH (08:13)
[2018-09-29] MEDS: IPRATROPIUM-ALBUTEROL 3 ML NEB INHALATION SCH ×4 (08:53→20:31)
--- NOTE | 2018-09-29 09:09 | XR ---
EXAMINATION TYPE: XR chest 1V DATE OF EXAM: 09/29/2018 COMPARISON: Prior chest 09/27/2018 HISTORY: Follow-up influenza TECHNIQUE: Single frontal view of the chest is obtained. FINDINGS: Heart is enlarged. Aorta is dense. No evident airspace disease, pneumothorax, or pleural e ffusion. IMPRESSION: Cardiomegaly.
[2018-09-29] MEDS: BENZOCAINE/MENTHOL LOZENG 1 EACH LOZENGE MUCOUS MEM PRN ×3 (15:58→22:30)
[2018-09-29] MEDS ORDERED: WARFARIN 2.5 MG TAB PO ONE (18:00)
[2018-09-29] MEDS ORDERED: WARFARIN 2.5 MG TAB PO SCH ×2 (18:00)
[2018-09-29] MEDS ORDERED: DILTIAZEM ORAL 30 MG TAB PO STA (20:33)
[2018-09-30] MEDS: methylPREDNISolone SOD SUCCI 40 MG/ML 1 ML VIAL IV SCH ×4 (00:35→23:55)
[2018-09-30] MEDS: SODIUM CHLORIDE 0.9% 1,000 ML IV SCH ×2 (04:13→16:05)
[2018-09-30] MEDS: LEVOTHYROXINE 112 MCG TAB PO SCH (05:03)
[2018-09-30] MEDS ORDERED: DILTIAZEM ORAL 30 MG TAB PO PRN (06:32)
[2018-09-30] MEDS: IPRATROPIUM-ALBUTEROL 3 ML NEB INHALATION SCH ×4 (08:03→19:49)
[2018-09-30 08:30] LABS: Basophils % (A) 0 %; Eosinophils % (A) 0 %; HCT 36.7 % (34.0-46.0); HGB 11.9 gm/dL (11.4-16.0); Lymphocytes # (A) 0.9 k/uL (1.0-4.8); Lymphocytes % (A) 10 %; MCH 32.8 pg (25.0-35.0); MCHC 32.6 g/dL (31.0-37.0); MCV 100.8 fL (80.0-100.0); Macrocytosis Slight; Mean Platelet Volume 6.6; Monocytes # (A) 0.4 k/uL (0-1.0); Monocytes % (A) 4 %; Neutrophils # (A) 8.5 k/uL (1.3-7.7); Neutrophils % (A) 86 %; Platelet Count 197 k/uL (150-450); RBC 3.64 m/uL (3.80-5.40); RDW 13.7 % (11.5-15.5); WBC 9.9 k/uL (3.8-10.6)
[2018-09-30] MEDS ORDERED: Phenol 1.4% Sore Throat Spray Bottle MUCOUS MEM PRN (08:33)
[2018-09-30 08:34] LABS: Prothrombin Time 19.8 sec (9.0-12.0)
[2018-09-30 08:40] LABS: Anion Gap 12 mmol/L; Blood Urea Nitrogen 23 mg/dL (7-17); Calcium 8.9 mg/dL (8.4-10.2); Carbon Dioxide 26 mmol/L (22-30); Chloride 105 mmol/L (98-107); Glucose 144 mg/dL (74-99); Potassium 4.6 mmol/L (3.5-5.1); Sodium 143 mmol/L (137-145)
[2018-09-30] MEDS: DOCUSATE 100 MG CAP PO SCH (09:22)
[2018-09-30] MEDS: OSELTAMIVIR 75 MG CAP PO SCH ×2 (09:23→22:02)
[2018-09-30] MEDS: LOSARTAN 50 MG TAB PO SCH (09:23)
[2018-09-30] MEDS: FAMOTIDINE 20 MG TAB PO SCH (09:23)
[2018-09-30] MEDS: METOPROLOL TARTRATE 50 MG TAB PO SCH ×2 (09:23→22:01)
[2018-09-30] MEDS: BENZOCAINE/MENTHOL LOZENG 1 EACH LOZENGE MUCOUS MEM PRN (09:23)
[2018-09-30] MEDS: ACETAMINOPHEN TAB 325 MG TAB PO PRN (09:31)
--- NOTE | 2018-09-30 12:12 | P.PN ---
Subjective this is a pleasant 73 years old female with past medical history of atrial fibrillation on warfarin, COPD, fibromyalgia, GERD, GI bleed, HTN, HLP, hypothyroidism, as her arthritis.patient presents with a few days of generalized weakness and body aches, headache, dry cough was started making some clear fluids today. Patient denies chest pain. On examination she has expiratory wheezing, scattered on both sides.however she is saturating 97% on 4 L. Also she has fever on admission on admission patient had fever of 101.5. CBC unremarkable with normal WBC, unremarkable BMP with normal liver enzymes. INR 2.3. And detected influenza antigen.chest x-ray no acute process. EKG atrial fibrillation with RVRat 109 09/29/2018 Patient still complains of generalized weakness and dyspneic. She is coughing and start making some white phlegm, and we will send sputum for culture. No abdominal pain, nausea vomiting or diarrhea. Patient denies chest pain however she still complaining of from myalgia all over and mild to moderate headache. She feels general malaise. She had fever yesterday of 103.5 F. The synovitis looks stable. Continue with IV hydration and symptomatic treatment. We will check chest x-ray this morning. And we'll give her an extra dose of Coumadin for her atrial fibrillation as her INR today is at 1.7. Keep monitor labs and INR levels. Continue with steroids and Tamiflu which she is taking currently. 09/30/2018 Patient today is much more awake and alert, back to her baseline and she can interact with her plan of care very efficiently. She still feeling generally weak and some dyspnea. The peak chest x-ray was negative. No more fever. patient developed tachycardia with A. fib and RVR yesterday. Her current heart rate is 106. Her labs look stable. INR today is 2.0. As she is on Coumadin. I feel patient can be discharged today, However she needs to go to rehab for more strengthening and exercise and physical therapy. bench worker helper on the case , pending placement Review of systems CONSTITUTIONAL: No fever, no malaise, no fatigue. HEENT: No recent visual problems or hearing problems. Denied any sore throat. CARDIOVASCULAR: No orthopnea, PND, no palpitations, no syncope. PULMONARY: no hemoptysis. GASTROINTESTINAL: No diarrhea, no nausea, no vomiting, no abdominal pain. Normoactive bowel sounds. NEUROLOGICAL: No headaches, no weakness, no numbness. HEMATOLOGICAL: Denies any bleeding or petechiae. GENITOURINARY: Denies any burning micturition, frequency, or urgency. ENDOCRINE: Denies any polyuria or polydipsia. Medication: Tylenol, albuterol, ceftriaxone, Benadryl, Pepcid, levothyroxine, losartan, Solu-Medrol, metoprolol, Tamiflu, normal saline, and warfarin. Objective - Vital Signs Vital signs: Vital Signs Temp 97.6 F 09/30/18 04:52 Pulse 106 H 09/30/18 04:52 Resp 16 09/30/18 04:52 BP 173/95 09/30/18 04:52 Pulse Ox 95 09/30/18 04:52 Intake & Output 09/29/18 09/30/18 09/30/18 18:59 06:59 18:59 Other: Voiding Method Toilet Diaper # Voids 2 1 - Exam -GENERAL: The patient is alert and oriented x3, not in any acute distress. Generally weak HEENT: Pupils are round and equally reacting to light. EOMI. No scleral icterus. No conjunctival pallor. Normocephalic, atraumatic. No pharyngeal erythema. No thyromegaly. CARDIOVASCULAR: S1 and S2 present. No murmurs, rubs, or gallops. PULMONARY: Chest is clear to auscultation, no wheezing or crackles. ABDOMEN: Soft, nontender, nondistended, normoactive bowel sounds. No palpable organomegaly. MUSCULOSKELETAL: No joint swelling or deformity. EXTREMITIES: No cyanosis, clubbing, or pedal edema. NEUROLOGICAL: Gross neurological examination did not reveal any focal deficits. SKIN: No rashes. - Labs CBC & Chem 7: 09/30/18 07:52 09/30/18 07:52 Labs: Abnormal Lab Results - Last 24 Hours (Table) 09/30/18 09/30/18 09/30/18 Range/Units 07:52 07:52 07:52 RBC 3.64 L (3.80-5.40) m/uL MCV 100.8 H (80.0-100.0) fL Neutrophils # 8.5 H (1.3-7.7) k/uL Lymphocytes # 0.9 L (1.0-4.8) k/uL PT 19.8 H (9.0-12.0) sec INR 2.0 H (<1.2) BUN 23 H (7-17) mg/dL Glucose 144 H (74-99) mg/dL Microbiology - Last 24 Hours (Table) 09/27/18 17:00 Blood Culture - Preliminary Blood No Growth after 48 hours Assessment and Plan Assessment: acute influenza generalized weakness and malaise History of COPD in mild acute exacerbation chronic atrial fibrillation , with mild RVR.on warfarin History of GERD Essential hypertension Hyperlipidemia Hypothyroidism History of GI bleed Plan: this is a pleasant 73 years old female who presents because of influenza and generalized weakness.continue with Tamiflu and ceftriaxone, since sputum for culture, continue with steroids and IV fluids. Call physical therapy evaluation Labs and medication were reviewed.. Continue same treatment. Continue with symptomatic treatment. Resume home medication. Monitor lytes and vitals. DVT and GI prophylaxis. Further recommendations of the clinical course of the patient DVT prophylaxis: warfarin GI Prophylaxis: Pepcid PT/OT: Pending Prognosis is guarded
[2018-09-30] MEDS: MELATONIN 3 MG TABLET PO SCH (22:01)
[2018-09-30] MEDS ORDERED: DILTIAZEM ORAL 30 MG TAB PO SCH (23:30)
[2018-09-30] MEDS ORDERED: ALPRAZolam 0.5 MG TAB PO STA (23:32)
[2018-10-01] MEDS: hydrALAZINE HCL 20 MG/ML 1 ML VIAL IVP PRN ×2 (02:38→14:03)
[2018-10-01 07:58] LABS: INR 1.9 (<1.2); Prothrombin Time 18.4 sec (9.0-12.0)
[2018-10-01] MEDS: IPRATROPIUM-ALBUTEROL 3 ML NEB INHALATION SCH ×4 (09:15→21:06)
[2018-10-01] MEDS: methylPREDNISolone SOD SUCCI 40 MG/ML 1 ML VIAL IV SCH ×3 (09:50→23:45)
[2018-10-01] MEDS: METOPROLOL TARTRATE 50 MG TAB PO SCH ×2 (09:50→20:47)
[2018-10-01] MEDS: DILTIAZEM ORAL 30 MG TAB PO SCH ×4 (09:51→23:45)
[2018-10-01] MEDS: FAMOTIDINE 20 MG TAB PO SCH (09:51)
[2018-10-01] MEDS: DOCUSATE 100 MG CAP PO SCH (09:51)
[2018-10-01] MEDS: LOSARTAN 50 MG TAB PO SCH (09:51)
[2018-10-01] MEDS: OSELTAMIVIR 75 MG CAP PO SCH ×2 (09:51→20:47)
[2018-10-01] MEDS: LEVOTHYROXINE 112 MCG TAB PO SCH (09:51)
[2018-10-01] MEDS ORDERED: DILTIAZEM ORAL 30 MG TAB PO SCH ×2 (13:15→13:36)
--- NOTE | 2018-10-01 14:31 | ECHOF ---
Referral Reason:A fib RVR MEASUREMENTS -------- HEIGHT: 170.2 cm WEIGHT: 100.7 kg BP: 149/95 IVSd: 1.3 cm (0.6 - 1.1) LVIDd: 4.5 cm (3.9 - 5.3) LVPWd: 1.3 cm (0.6 - 1.1) EDV(Teich): 92 ml IVSs: 1.7 cm LVIDs: 3.5 cm LVPWs: 1.7 cm %IVS Thck: 33 % ESV(Teich): 50 ml EF(Teich): 46 % %FS: 23 % SV(Teich): 42 ml LA Diam: 4.4 cm (2.7 - 3.8) RVIDd: 3.1 cm (< 3.3) LALs A4C: 5.8 cm LAAs A4C: 21.0 cm LAESV A-L A4C: 64 ml LAESV MOD A4C: 61 ml LALs A2C: 6.1 cm LAAs A2C: 24.1 cm LAESV A-L A2C: 81 ml LAESV MOD A2C: 78 ml LAESV(A-L): 73 ml LAESV Index (A-L): 34.65 ml/m Ao Diam: 3.2 cm (2.0 - 3.7) LA Diam: 3.6 cm (2.7 - 3.8) AV Cusp: 1.8 cm (1.5 - 2.6) EPSS: 0.5 cm MV E Cj: 0.87 m/s MV DecT: 222 ms MV Dec Evangeline: 3.9 m/s MV A Cj: 0.36 m/s MV E/A Ratio: 2.45 MV PHT: 64 ms AV Vmax: 1.06 m/s AV maxP.50 mmHg TR Vmax: 3.09 m/s TR maxP.21 mmHg RAP: 5.00 mmHg RVSP: 43.21 mmHg MV EF SLOPE: 156.24 mm/s (70 - 150) MV EXCURSION: 20.13 mm (> 18.000) FINDINGS -------- Atrial fibrillation. This was a technically adequate study. The left ventricular size is normal. There is mild concentric left ventricular hypertrophy. Overa ll left ventricular systolic function is low-normal with, an EF between 50 - 55 %. The right ventricle is mildly enlarged. LA is moderately dilated 34-39 ml/m2 RA appears enlarged. Aortic valve is trileaflet and is mildly thickened. There is no evidence of aortic regurgitation. There is no evidence of aortic stenosis. The mitral valve leaflets are mildly thickened. Rpel-zm-xvllwngt mitral regurgitation is present. Npmv-un-bebngiku tricuspid regurgitation present. There is mild pulmonary hypertension. The right ventricular systolic pressure, as measured by Doppler, is 43.21mmHg. Trace/mild (physiologic) pulmonic regurgitation. The aortic root size is normal. IVC Not well visulized. There is a trivial pericardial effusion present. CONCLUSIONS -------- 1. Atrial fibrillation. 2. This was a technically adequate study. 3. The left ventricular size is normal. 4. There is mild concentric left ventricular hypertrophy. 5. Overall left ventricular systolic function is low-normal with, an EF between 50 - 55 %. 6. The right ventricle is mildly enlarged. 7. LA is moderately dilated 34-39 ml/m2 8. RA appears enlarged. 9. Aortic valve is trileaflet and is mildly thickened. 10. The mitral valve leaflets are mildly thickened. 11. Motx-pt-shfacedh mitral regurgitation is present. 12. Wogl-nu-nwyloifr tricuspid regurgitation present. 13. There is mild pulmonary hypertension. 14. The right ventricular systolic pressure, as measured by Doppler, is 43.21mmHg. 15. Trace/mild (physiologic) pulmonic regurgitation. 16. The aortic root size is normal. 17. IVC Not well visulized. 18. There is a trivial pericardial effusion present. INSURANCE BILLING CLERK: Chetan Parra RDCS
[2018-10-01] MEDS ORDERED: WARFARIN 2.5 MG TAB PO SCH (18:00)
--- NOTE | 2018-10-01 18:40 | P.PN ---
Subjective this is a pleasant 73 years old female with past medical history of atrial fibrillation on warfarin, COPD, fibromyalgia, GERD, GI bleed, HTN, HLP, hypothyroidism, as her arthritis.patient presents with a few days of generalized weakness and body aches, headache, dry cough was started making some clear fluids today. Patient denies chest pain. On examination she has expiratory wheezing, scattered on both sides.however she is saturating 97% on 4 L. Also she has fever on admission on admission patient had fever of 101.5. CBC unremarkable with normal WBC, unremarkable BMP with normal liver enzymes. INR 2.3. And detected influenza antigen.chest x-ray no acute process. EKG atrial fibrillation with RVRat 109 09/29/2018 Patient still complains of generalized weakness and dyspneic. She is coughing and start making some white phlegm, and we will send sputum for culture. No abdominal pain, nausea vomiting or diarrhea. Patient denies chest pain however she still complaining of from myalgia all over and mild to moderate headache. She feels general malaise. She had fever yesterday of 103.5 F. The synovitis looks stable. Continue with IV hydration and symptomatic treatment. We will check chest x-ray this morning. And we'll give her an extra dose of Coumadin for her atrial fibrillation as her INR today is at 1.7. Keep monitor labs and INR levels. Continue with steroids and Tamiflu which she is taking currently. 09/30/2018 Patient today is much more awake and alert, back to her baseline and she can interact with her plan of care very efficiently. She still feeling generally weak and some dyspnea. The peak chest x-ray was negative. No more fever. patient developed tachycardia with A. fib and RVR yesterday. Her current heart rate is 106. Her labs look stable. INR today is 2.0. As she is on Coumadin. I feel patient can be discharged today, However she needs to go to rehab for more strengthening and exercise and physical therapy. outreach worker on the case , pending placement 10/01/2018 Yesterday night patient developed A. fib with RVR again, she was placed on Cardizem 30 mg twice a day and her heart rate is improved this morning down to the 90s. Patient was placed on telemetry. Cardiology team have been consulted. Echo showing EF 55% with tone-ve-fuhxszeq mitral regurgitation and tricuspid regurgitation. Patient feels a little bit better as because she said she slipped last night well when she took Xanax 0.5 mg. She still have symptomatic disease and fatigue secondary to influenza viral infection. Patient pending placement for rehab. She remains on Coumadin and INR today is 1.9. Her Coumadin was increased from 2.5 to 3.0 mg daily Review of systems CONSTITUTIONAL: No fever, no malaise, no fatigue. HEENT: No recent visual problems or hearing problems. Denied any sore throat. CARDIOVASCULAR: No orthopnea, PND, no palpitations, no syncope. PULMONARY: no hemoptysis. GASTROINTESTINAL: No diarrhea, no nausea, no vomiting, no abdominal pain. Normoactive bowel sounds. NEUROLOGICAL: No headaches, no weakness, no numbness. HEMATOLOGICAL: Denies any bleeding or petechiae. GENITOURINARY: Denies any burning micturition, frequency, or urgency. ENDOCRINE: Denies any polyuria or polydipsia. Medication: Tylenol, albuterol, ceftriaxone, Benadryl, Pepcid, levothyroxine, losartan, Solu-Medrol, metoprolol, Tamiflu, normal saline, and warfarin. Objective - Vital Signs Vital signs: Vital Signs Temp 98.0 F 10/01/18 12:39 Pulse 92 10/01/18 12:39 Resp 16 10/01/18 12:39 BP 165/106 10/01/18 12:39 Pulse Ox 97 10/01/18 12:39 Intake & Output 09/30/18 10/01/18 10/01/18 18:59 06:59 18:59 Intake Total 160 530 Output Total 300 Balance 160 530 -300 Weight 101 kg Intake: Intake, IV Titration 160 180 Amount Sodium Chloride 0.9% 1, 160 180 000 ml @ 20 mls/hr IV . Q24H [facility] Rx#:[id number] Oral 350 Output: Urine 300 Other: Voiding Method Toilet Toilet Diaper Diaper Incontinent Incontinent # Voids 1 2 - Exam -GENERAL: The patient is alert and oriented x3, not in any acute distress. Generally weak HEENT: Pupils are round and equally reacting to light. EOMI. No scleral icterus. No conjunctival pallor. Normocephalic, atraumatic. No pharyngeal erythema. No thyromegaly. CARDIOVASCULAR: S1 and S2 present. No murmurs, rubs, or gallops. PULMONARY: Chest is clear to auscultation, no wheezing or crackles. ABDOMEN: Soft, nontender, nondistended, normoactive bowel sounds. No palpable organomegaly. MUSCULOSKELETAL: No joint swelling or deformity. EXTREMITIES: No cyanosis, clubbing, or pedal edema. NEUROLOGICAL: Gross neurological examination did not reveal any focal deficits. SKIN: No rashes. - Labs CBC & Chem 7: 09/30/18 07:52 09/30/18 07:52 Labs: Abnormal Lab Results - Last 24 Hours (Table) 10/01/18 Range/Units 07:22 PT 18.4 H (9.0-12.0) sec INR 1.9 H (<1.2) Microbiology - Last 24 Hours (Table) 09/27/18 17:00 Blood Culture - Preliminary Blood No Growth after 72 hours Assessment and Plan Assessment: acute influenza generalized weakness and malaise History of COPD in mild acute exacerbation chronic atrial fibrillation , with mild RVR.on warfarin History of GERD Essential hypertension Hyperlipidemia Hypothyroidism History of GI bleed Plan: this is a pleasant 73 years old female who presents because of influenza and generalized weakness.continue with Tamiflu and ceftriaxone, since sputum for culture, continue with steroids and IV fluids. Call physical therapy evaluation Labs and medication were reviewed.. Continue same treatment. Continue with symptomatic treatment. Resume home medication. Monitor lytes and vitals. DVT and GI prophylaxis. Further recommendations of the clinical course of the patient DVT prophylaxis: warfarin GI Prophylaxis: Pepcid PT/OT: Pending Prognosis is guarded
[2018-10-01] MEDS ORDERED: WARFARIN 0.5 MG TAB PO ONE (18:45)
[2018-10-01] MEDS: SODIUM CHLORIDE 0.9% 1,000 ML IV SCH (19:32)
[2018-10-01] MEDS: ACETAMINOPHEN TAB 325 MG TAB PO PRN (20:46)
[2018-10-01] MEDS: BENZOCAINE/MENTHOL LOZENG 1 EACH LOZENGE MUCOUS MEM PRN (20:46)
[2018-10-01] MEDS: MELATONIN 3 MG TABLET PO SCH (20:47)
[2018-10-01] MEDS: ALPRAZolam 0.5 MG TAB PO PRN (20:47)
[2018-10-02] MEDS: IPRATROPIUM-ALBUTEROL 3 ML NEB INHALATION SCH ×4 (05:15→19:12)
[2018-10-02] MEDS: LEVOTHYROXINE 112 MCG TAB PO SCH (06:03)
[2018-10-02] MEDS: DILTIAZEM ORAL 30 MG TAB PO SCH ×3 (06:03→17:41)
--- NOTE | 2018-10-02 08:11 | CONS ---
CONSULTATION Mrs. Varela is a 73-year-old female who is seen for cardiac evaluation. This patient's medical records, lab tests and medications were reviewed. The patient has a known history of chronic atrial fibrillation, history of fibromyalgia, COPD and hypothyroidism. The patient was admitted with generalized weakness, body aches, headaches and dry cough. The patient has been currently treated for the flu. The patient is known to have chronic atrial fibrillation as well as a hypertension. During the night, the patient was noticed to have some in atrial fibrillation with intermittent rapid ventricular rate. This morning patient's heart rate has improved and it is in the range of 90-100. The patient is comfortable. She denies any respiratory distress and patient has remained afebrile since the admission. PAST MEDICAL HISTORY: Includes a history of chronic atrial fibrillation, fibromyalgia, history of sleep apnea, prior history of cardiac catheterization, orthopedic surgery and cardioversion, bilateral knee arthroscopic surgery. SMOKING HISTORY: Patient is a former smoker. HOME MEDICATIONS: Included Coumadin, losartan 50 mg daily, Synthroid 112 mcg daily, Lasix 20 mg daily, nitroglycerin p.r.n., metoprolol 100 mg b.i.d. PHYSICAL EXAMINATION: At present reveals patient has a heart rate to be 100-110, oxygen saturation is 97%. Blood pressure is 160/80 mmHg. HEENT examination is negative. Neck is supple. There is no increase in jugular venous pressure. Both the carotid pulses are felt. There is no bruit. Chest is symmetrical. Heart: The PMI is not felt. First and second heart sounds are normal. Lungs are clinically clear to auscultation and percussion. Abdomen is soft. Liver and spleen are not enlarged. Bowel sounds are heard. EXTREMITIES: Peripheral pulsations are 2+. The patient's INR is 1.9, hemoglobin is 11.9. Electrolytes are normal. Creatinine is 0.7. Chest x-ray is normal. FINAL IMPRESSION: 1. This patient has a chronic atrial fibrillation, intermittently rapid ventricular response was noted during the night. 2. History of hypertension. 3. The patient currently is being treated for the flu. RECOMMENDATIONS: I will increase the dose of Cardizem to 90 mg q.8 hourly and the losartan 200 mg daily for better control of the blood pressure. We will continue the patient on the current medications. Discussion can be made with the patient regarding changing from Coumadin to the newer anticoagulant agent. MMODL / IJN: [id number] /
[2018-10-02] MEDS: methylPREDNISolone SOD SUCCI 40 MG/ML 1 ML VIAL IV SCH ×2 (10:03→17:41)
[2018-10-02] MEDS: DOCUSATE 100 MG CAP PO SCH (10:05)
[2018-10-02] MEDS: OSELTAMIVIR 75 MG CAP PO SCH (10:05)
[2018-10-02] MEDS: LOSARTAN 50 MG TAB PO SCH (10:05)
[2018-10-02] MEDS: FAMOTIDINE 20 MG TAB PO SCH (10:05)
[2018-10-02] MEDS: METOPROLOL TARTRATE 50 MG TAB PO SCH ×2 (10:05→20:34)
[2018-10-02] MEDS: BENZOCAINE/MENTHOL LOZENG 1 EACH LOZENGE MUCOUS MEM PRN ×2 (10:06→20:35)
[2018-10-02] MEDS ORDERED: WARFARIN 3 MG TAB PO SCH (18:00)
[2018-10-02] MEDS ORDERED: WARFARIN 2.5 MG TAB PO SCH (18:00)
[2018-10-02] MEDS: MELATONIN 3 MG TABLET PO SCH (19:44)
[2018-10-02] MEDS: SODIUM CHLORIDE 0.9% 1,000 ML IV SCH (19:44)
[2018-10-02] MEDS: ACETAMINOPHEN TAB 325 MG TAB PO PRN (20:35)
[2018-10-02] MEDS: ALPRAZolam 0.5 MG TAB PO PRN (20:35)
--- NOTE | 2018-10-02 20:35 | P.PN ---
Subjective this is a pleasant 73 years old female with past medical history of atrial fibrillation on warfarin, COPD, fibromyalgia, GERD, GI bleed, HTN, HLP, hypothyroidism, as her arthritis.patient presents with a few days of generalized weakness and body aches, headache, dry cough was started making some clear fluids today. Patient denies chest pain. On examination she has expiratory wheezing, scattered on both sides.however she is saturating 97% on 4 L. Also she has fever on admission on admission patient had fever of 101.5. CBC unremarkable with normal WBC, unremarkable BMP with normal liver enzymes. INR 2.3. And detected influenza antigen.chest x-ray no acute process. EKG atrial fibrillation with RVRat 109 09/29/2018 Patient still complains of generalized weakness and dyspneic. She is coughing and start making some white phlegm, and we will send sputum for culture. No abdominal pain, nausea vomiting or diarrhea. Patient denies chest pain however she still complaining of from myalgia all over and mild to moderate headache. She feels general malaise. She had fever yesterday of 103.5 F. The synovitis looks stable. Continue with IV hydration and symptomatic treatment. We will check chest x-ray this morning. And we'll give her an extra dose of Coumadin for her atrial fibrillation as her INR today is at 1.7. Keep monitor labs and INR levels. Continue with steroids and Tamiflu which she is taking currently. 09/30/2018 Patient today is much more awake and alert, back to her baseline and she can interact with her plan of care very efficiently. She still feeling generally weak and some dyspnea. The peak chest x-ray was negative. No more fever. patient developed tachycardia with A. fib and RVR yesterday. Her current heart rate is 106. Her labs look stable. INR today is 2.0. As she is on Coumadin. I feel patient can be discharged today, However she needs to go to rehab for more strengthening and exercise and physical therapy. 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 fib with RVR again, she was placed on Cardizem 30 mg twice a day and her heart rate is improved this morning down to the 90s. Patient was placed on telemetry. Cardiology team have been consulted. Echo showing EF 55% with [id number] mitral regurgitation and tricuspid regurgitation. Patient feels a little bit better as because she said she slipped last night well when she took Xanax 0.5 mg. She still have symptomatic disease and fatigue secondary to influenza viral infection. Patient pending placement for rehab. She remains on Coumadin and INR today is 1.9. Her Coumadin was increased from 2.5 to 3.0 mg daily 10/02/18 today pt keep improving and actually she was feeling better , but she is upset with her family becasue her is sick in the hospital , pt is medically stable, no INR today , we will check her INR tomorrow , pt might be able to go to rehab tomorrow. cardiology evaluated pt and adjusted her cardizem dose, her HR is better controlled now, her BP is slightly elevated Review of systems CONSTITUTIONAL: No fever, no malaise, no fatigue. HEENT: No recent visual problems or hearing problems. Denied any sore throat. CARDIOVASCULAR: No orthopnea, PND, no palpitations, no syncope. PULMONARY: no hemoptysis. GASTROINTESTINAL: No diarrhea, no nausea, no vomiting, no abdominal pain. Normoactive bowel sounds. NEUROLOGICAL: No headaches, no weakness, no numbness. HEMATOLOGICAL: Denies any bleeding or petechiae. GENITOURINARY: Denies any burning micturition, frequency, or urgency. ENDOCRINE: Denies any polyuria or polydipsia. Medication: Tylenol, albuterol, ceftriaxone, Benadryl, Pepcid, levothyroxine, losartan, Solu-Medrol, metoprolol, Tamiflu, normal saline, and warfarin. Objective - Vital Signs Vital signs: Vital Signs Temp 97.7 F 10/02/18 12:07 Pulse 90 10/02/18 15:48 Resp 16 10/02/18 15:48 BP 148/97 10/02/18 12:07 Pulse Ox 96 10/02/18 12:07 Intake & Output 10/02/18 10/02/18 10/03/18 06:59 18:59 06:59 Intake Total 480 650 Balance 480 650 Weight 100 kg Intake: Intake, IV Titration 180 50 Amount Sodium Chloride 0.9% 1, 180 000 ml @ 20 mls/hr IV . Q24H REPLACED BY [facility] Rx#:[id number] cefTRIAXone 1 gm In 50 Sodium Chloride 0.9% 50 ml @ 100 mls/hr IVPB Q24H REPLACED BY [facility] Rx#:[id number] Oral 300 600 Other: Voiding Method Toilet Toilet Diaper Diaper Incontinent Incontinent # Voids 2 2 - Exam -GENERAL: The patient is alert and oriented x3, not in any acute distress. Generally weak HEENT: Pupils are round and equally reacting to light. EOMI. No scleral icterus. No conjunctival pallor. Normocephalic, atraumatic. No pharyngeal erythema. No thyromegaly. CARDIOVASCULAR: S1 and S2 present. No murmurs, rubs, or gallops. PULMONARY: Chest is clear to auscultation, no wheezing or crackles. ABDOMEN: Soft, nontender, nondistended, normoactive bowel sounds. No palpable organomegaly. MUSCULOSKELETAL: No joint swelling or deformity. EXTREMITIES: No cyanosis, clubbing, or pedal edema. NEUROLOGICAL: Gross neurological examination did not reveal any focal deficits. SKIN: No rashes. - Labs CBC & Chem 7: 09/30/18 07:52 09/30/18 07:52 Labs: Microbiology - Last 24 Hours (Table) 09/27/18 17:00 Blood Culture - Preliminary Blood No Growth after 120 hours Assessment and Plan Assessment: acute influenza generalized weakness and malaise History of COPD in mild acute exacerbation chronic atrial fibrillation , with mild RVR.on warfarin History of GERD Essential hypertension Hyperlipidemia Hypothyroidism History of GI bleed Plan: this is a pleasant 73 years old female who presents because of influenza and generalized weakness.continue with Tamiflu and ceftriaxone, since sputum for culture, continue with steroids and IV fluids. Call physical therapy evaluation Labs and medication were reviewed.. Continue same treatment. Continue with symptomatic treatment. Resume home medication. Monitor lytes and vitals. DVT and GI prophylaxis. Further recommendations of the clinical course of the patient DVT prophylaxis: warfarin GI Prophylaxis: Pepcid PT/OT: Pending Prognosis is guarded
[2018-10-03] MEDS: DILTIAZEM ORAL 30 MG TAB PO SCH ×3 (00:06→12:34)
[2018-10-03] MEDS: LEVOTHYROXINE 112 MCG TAB PO SCH (06:15)
[2018-10-03 06:17] VITALS: RESP 18
[2018-10-03] MEDS: IPRATROPIUM-ALBUTEROL 3 ML NEB INHALATION SCH ×3 (08:18→15:29)
[2018-10-03] MEDS: ACETAMINOPHEN TAB 325 MG TAB PO PRN (08:53)
[2018-10-03] MEDS: LOSARTAN 50 MG TAB PO SCH (08:54)
[2018-10-03] MEDS: FAMOTIDINE 20 MG TAB PO SCH (08:54)
[2018-10-03] MEDS: DOCUSATE 100 MG CAP PO SCH (08:54)
[2018-10-03] MEDS: METOPROLOL TARTRATE 50 MG TAB PO SCH (08:54)
[2018-10-03] MEDS: BENZOCAINE/MENTHOL LOZENG 1 EACH LOZENGE MUCOUS MEM PRN (08:58)
[2018-10-03] MEDS ORDERED: predniSONE 10 MG TAB PO SCH (09:00)
[2018-10-03 09:15] LABS: INR 1.9 (<1.2); Prothrombin Time 18.6 sec (9.0-12.0)
[2018-10-03 14:33] VITALS: BP 144/88; TEMP 97.9
[2018-10-03 15:49] VITALS: PULSE 92
--- NOTE | 2018-10-04 11:32 | P.DS ---
Providers Date of admission: 09/29/18 13:22 Attending physician: Jerome Nova Consults: 09/30/18 23:33 Consult Physician Routine Consulting Provider: Amy Zhao Consult Reason/Comments: a fib with rvr Do you want consulting provider notified?: Yes [facility] Course: acute influenza generalized weakness and malaise History of COPD in mild acute exacerbation chronic atrial fibrillation , with mild RVR.on warfarin History of GERD Essential hypertension Hyperlipidemia Hypothyroidism History of GI bleed hospital course : this is a pleasant 73 years old female with past medical history of atrial fibrillation on warfarin, COPD, fibromyalgia, GERD, GI bleed, HTN, HLP, hypothyroidism, as her arthritis.patient presents with a few days of generalized weakness and body aches, Patient was diagnosed with influenza A, and she was started and Tamiflu and her symptoms of weakness, malaise and headache, myalgia, fever were improving area chest x-rays was negative for infiltrates. Patient was treated symptomatically also and she showed interval improvement however physical therapy recommended inpatient rehab which the patient agrees. Patient needed a three-day of inpatient hospitalist day for insurance authorization. And she finished her course of Tamiflu. Hospital course has been complicated by A. fib and RVR, she was already on metoprolol, Cardizem has been ordered by director of occupational health, also increase her dose of losartan . Her blood pressure and heart rate are better controlled upon discharge. Blood pressure 155/79 and heart rate 73 regular. Patient was cleared by cardiology team for discharge Patient problems and management was discussed with the patient and she verbalized understanding and acceptance Patient was found stable and can be discharged to [facility] for rehab and guarded prognosis. However she needs follow-up as an outpatient. Patient was instructed to follow up with her PCP and director of occupational health within 1 week. Gen: patient is a AAOx3, no distress, generalized weakness CVS: S1-S2, RRR, no murmur Lungs: B/L CTA, no wheezing Abdomen: soft, no distention, no tenderness, positive bowel sounds Extremity: no leg edema or induration Time spent more than 35 minutes Plan - Discharge Summary Discharge Rx Participant: No New Discharge Prescriptions: New Acetaminophen Tab [Tylenol] 650 mg PO Q6HR PRN tab PRN Reason: Fever And/ Or Pain ALPRAZolam [Xanax] 0.5 mg PO BID PRN tab PRN Reason: Anxiety Benzocaine/Menthol Lozeng [Cepacol lozenge] 1 each MUCOUS MEM Q4HR PRN lozenge PRN Reason: Sore Throat Diltiazem Oral [Cardizem*] 90 mg PO Q6HR tab Ipratropium-Albuterol Nebulize [Duoneb 0.5 mg-3 mg/3 ml Soln] 3 ml INHALATION RT-QID ampul.neb Losartan [Cozaar] 100 mg PO DAILY tab Melatonin 3 mg PO HS #1 tablet Phenol 1.4% [place] [Sore Throat [place] (Chloraseptic)] 1 applic MUCOUS MEM Q2HR PRN bottle PRN Reason: Sore Throat Warfarin [Coumadin] 3.5 mg PO DAILY@1800 tab Continue Nitroglycerin [Nitrostat] 0.4 mg PO Q5M PRN PRN Reason: Chest Pain Metoprolol Tartrate [Lopressor] 100 mg PO BID Cholecalciferol (Vitamin D3) [Vitamin D3] 5,000 unit PO DAILY Furosemide [Lasix] 20 mg PO MOWEFR Famotidine [Pepcid] 20 mg PO DAILY Losartan Potassium 50 mg PO DAILY Levothyroxine Sodium [Synthroid] 112 mcg PO DAILY Discontinued Warfarin [Coumadin] 2.5 mg PO SUTUTHSA Ranitidine HCl 150 mg PO BID Warfarin Sodium 6 mg PO MOWEFR Discharge Medication List Cholecalciferol (Vitamin D3) [Vitamin D3] 5,000 unit PO DAILY 09/03/14 [History] Metoprolol Tartrate [Lopressor] 100 mg PO BID 09/03/14 [History] Nitroglycerin [Nitrostat] 0.4 mg PO Q5M PRN 09/03/14 [History] Famotidine [Pepcid] 20 mg PO DAILY 09/27/18 [History] Furosemide [Lasix] 20 mg PO MOWEFR 09/27/18 [History] Levothyroxine Sodium [Synthroid] 112 mcg PO DAILY 09/27/18 [History] Losartan Potassium 50 mg PO DAILY 09/27/18 [History] ALPRAZolam [Xanax] 0.5 mg PO BID PRN tab 10/03/18 [Rx] Acetaminophen Tab [Tylenol] 650 mg PO Q6HR PRN tab 10/03/18 [Rx] Benzocaine/Menthol Lozeng [Cepacol lozenge] 1 each MUCOUS MEM Q4HR PRN lozenge 10/03/18 [Rx] Diltiazem Oral [Cardizem*] 90 mg PO Q6HR tab 10/03/18 [Rx] Ipratropium-Albuterol Nebulize [Duoneb 0.5 mg-3 mg/3 ml Soln] 3 ml INHALATION RT -QID ampul.neb 10/03/18 [Rx] Losartan [Cozaar] 100 mg PO DAILY tab 10/03/18 [Rx] Melatonin 3 mg PO HS #1 tablet 10/03/18 [Rx] Phenol 1.4% [place] [Sore Throat [place] (Chloraseptic)] 1 applic MUCOUS MEM Q2HR PRN bottle 10/03/18 [Rx] Warfarin [Coumadin] 3.5 mg PO DAILY@1800 tab 10/03/18 [Rx] Follow up Appointment(s)/Referral(s): Troy Benoit, [Primary Care Provider] - 1-2 days Activity/Diet/Wound Care/Special Instructions: Room air Bilateral humphrey redness/rash, 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
[2018-10-04] MEDS ORDERED: IPRATROPIUM-ALBUTEROL 3 ML NEB INHALATION PRN (11:41)
[2018-10-04] MEDS ORDERED: ACETAMINOPHEN TAB 325 MG TAB PO PRN (11:41)
[2018-10-04] MEDS ORDERED: NITROGLYCERIN SL TABS 0.4 MG TAB SUBLINGUAL PRN (11:42)
[2018-10-04] MEDS ORDERED: DOXYCYCLINE 100 MG in SODIUM CHLORIDE 0.9% 100 ML IVPB SCH (11:45)
[2018-10-04] MEDS ORDERED: SODIUM CHLORIDE 0.9% 1,000 ML IV SCH (11:45)
[2018-10-04] MEDS ORDERED: AZTREONAM 1 GM in SODIUM CHLORIDE 0.9% 50 ML IVPB SCH (11:45)
[2018-10-04] MEDS ORDERED: methylPREDNISolone SOD SUCCI 125 MG/2 ML VIAL IV SCH (12:00)
[2018-10-04] MEDS ORDERED: NON-FORMULARY DRUG (Metoprolol Tartrate [Lopressor] 100 MG) PO SCH (21:00)
[2018-10-05] MEDS ORDERED: LEVOTHYROXINE 112 MCG TAB PO SCH (09:00)
[2018-10-05] MEDS ORDERED: FUROSEMIDE 20 MG TAB PO SCH (11:42)
== END 2018-10-03 18:25 | DRG 153 ==
LOC: EC 16:23 → 4MS4W 21:03 → 3NMEDONC 21:59 → OBSVTOIN 09-29 13:22
PROVIDERS: ADMIT Internal Medicine; ATTEND Internal Medicine
DX: J11.1 Influenza due to unidentified influenza virus with other respiratory manifestations (principal); J44.1 Chronic obstructive pulmonary disease with (acute) exacerbation; E03.9 Hypothyroidism, unspecified; E78.5 Hyperlipidemia, unspecified; F32.9 Major depressive disorder, single episode, unspecified; G47.33 Obstructive sleep apnea (adult) (pediatric); H91.90 Unspecified hearing loss, unspecified ear; I08.1 Rheumatic disorders of both mitral and tricuspid valves; I10 Essential (primary) hypertension; I48.2 Chronic atrial fibrillation; J44.9 Chronic obstructive pulmonary disease, unspecified; K21.9 Gastro-esophageal reflux disease without esophagitis; M65.9 Synovitis and tenosynovitis, unspecified; M79.7 Fibromyalgia; R32 Unspecified urinary incontinence; Z79.01 Long term (current) use of anticoagulants; Z79.890 Hormone replacement therapy; Z79.899 Other long term (current) drug therapy; Z82.49 Family history of ischemic heart disease and other diseases of the circulatory system; Z83.3 Family history of diabetes mellitus; Z87.891 Personal history of nicotine dependence; Z91.81 History of falling; Z88.6 Allergy status to analgesic agent; Z88.1 Allergy status to other antibiotic agents; Z88.5 Allergy status to narcotic agent; Z88.0 Allergy status to penicillin; Z88.2 Allergy status to sulfonamides; Z98.42 Cataract extraction status, left eye; Z98.41 Cataract extraction status, right eye; Z96.1 Presence of intraocular lens
CPT/HCPCS: 36415; 71045; 71046; 80048; 80053; 81001; 83605; 85025; 85610; 85730; 87040; 87086; 87502; 93005; 93306; 94640; 94760; 96365; 99285

== ENCOUNTER 2018-10-10 19:33 | Emergency (ER) | payer MEDICARE ==
[2018-10-10 19:55] VITALS: RESP 16; TEMP 98.6
[2018-10-10] MEDS ORDERED: SODIUM CHLORIDE 0.9% 500 ML 500 ML IV STA (21:22)
[2018-10-10 21:41] LABS: Appearance,Urine Clear (Clear); Bacteria,Urine Rare /hpf; Bilirubin,Urine Negative (Negative); Blood,Urine Negative (Negative); Color,Urine Yellow; Glucose,Urine (UA) Negative (Negative); Ketones,Urine Negative (Negative); Leukocyte Esterase,Urine Small (Negative); Mucus,Urine Few /hpf; Nitrite,Urine Negative (Negative); PH, Urine 5.5 (5.0-8.0); Protein,Urine Negative (Negative); RBC,Urine 2 /hpf (0-5); Specific Gravity,Urine 1.019 (1.001-1.035); Squamous Epithelial Cell,Urine 2 /hpf (0-4); Urobilinogen,Urine <2.0 mg/dL (<2.0); WBC,Urine 2 /hpf (0-5)
[2018-10-10] MEDS ORDERED: KETOROLAC 30 MG/ML 1 ML VIAL IVP STA (21:57)
[2018-10-10] MEDS ORDERED: diphenhydrAMINE 50 MG/ML 1 ML VIAL IVP STA (21:57)
--- NOTE | 2018-10-10 21:57 | ED ---
Headache HPI - General Chief Complaint: Headache Stated Complaint: Weakness Time Seen by Provider: 10/10/18 20:04 Mode of arrival: EMS - History of Present Illness Initial Comments: 73-year-old female patient presents to the emergency department today for complaints of headache. Patient states that she has had a headache for the last 8 days. States that she was seen and evaluated here week ago was diagnosed with influenza and admitted to the hospital. States that the headache started prior to her previous admission and has persisted since. States that she was discharged to a rehabilitation facility. She states that the headache has been constant all day everyday. Patient states it's worse when she lies down. Patient states that she did have a fall sometime within the last year she thinks may have exacerbated headaches. States that she has never had a headache that lasted this long. She denies any current blurred vision, double vision, numbness, or tingling to the extremities. She denies any focal weakness in her extremities. States she does feel generally weak. She is also reporting worsening cough. States it does feel like she has phlegm in her lungs but she is unable to cough it up. She denies any fevers or chills. She is also experiencing back pain that is chronic, she is being evaluated for this by her pain specialist Dr. Eaton. Patient denies any recent rash, shortness breath, chest pain, abdominal pain, nausea, vomiting, diarrhea, constipation, hematuria, dysuria, urinary urgency, urinary frequency, or any other complaints. - Related Data Home Medications Medication Instructions Recorded Confirmed Cholecalciferol (Vitamin D3) 5,000 unit PO DAILY 09/03/14 10/10/18 [Vitamin D3] Metoprolol Tartrate [Lopressor] 100 mg PO BID 09/03/14 10/10/18 Nitroglycerin [Nitrostat] 0.4 mg PO Q5M PRN 09/03/14 10/10/18 Famotidine [Pepcid] 20 mg PO DAILY 09/27/18 09/27/18 Furosemide [Lasix] 20 mg PO MOWEFR 09/27/18 10/10/18 Levothyroxine Sodium [Synthroid] 112 mcg PO DAILY 09/27/18 10/10/18 Losartan Potassium 50 mg PO DAILY 09/27/18 10/10/18 Lactose-Reduced Food [Ensure Plus] 237 ml PO DAILY 10/10/18 10/10/18 Losartan Potassium [Cozaar] 100 mg PO DAILY 10/10/18 10/10/18 Warfarin [Coumadin] 3.5 mg PO DAILY@1700 10/10/18 10/10/18 Warfarin [Coumadin] 5 mg PO DAILY 10/10/18 10/10/18 guaiFENesin-DM 100-10MG/5ML 10 ml PO Q4H PRN 10/10/18 10/10/18 [Robitussin DM] Previous Rx's Medication Instructions Recorded Acetaminophen Tab [Tylenol] 650 mg PO Q6HR PRN tab 10/03/18 Benzocaine/Menthol Lozeng [Cepacol 1 each MUCOUS MEM Q4HR PRN lozenge 10/03/18 lozenge] Diltiazem Oral [Cardizem*] 90 mg PO Q6HR tab 10/03/18 Ipratropium-Albuterol Nebulize 3 ml INHALATION RT-QID ampul.neb 10/03/18 [Duoneb 0.5 mg-3 mg/3 ml Soln] Melatonin 3 mg PO HS #1 tablet 10/03/18 Phenol 1.4% [place] [Sore Throat 1 applic MUCOUS MEM Q2HR PRN 10/03/18 [place] (Chloraseptic)] bottle guaiFENesin-DM 600/30MG [Mucinex 1 each PO Q12HR #10 tab.er.12h 10/10/18 Dm] predniSONE 50 mg PO DAILY #5 tablet 10/10/18 Allergies Allergy/AdvReac Type Severity Reaction Status Date / Time erythromycin base Allergy Unknown Verified 10/10/18 20:53 [From E-Mycin] Penicillins Allergy Unknown Verified 10/10/18 20:53 Sulfa (Sulfonamide Allergy Unknown Verified 10/10/18 20:53 Antibiotics) adhesive AdvReac BRUISES, Verified 10/10/18 20:53 ITCHING hydrocodone AdvReac AVOIDS Verified 10/10/18 20:53 NARCOTICS D/T PERSONAL REASONS NITRO PATCHES AdvReac HEADACHES Uncoded 03/11/15 17:05 Review of Systems ROS Statement: Those systems with pertinent positive or pertinent negative responses have been documented in the HPI. ROS Other: All systems not noted in ROS Statement are negative. Past Medical History Past Medical History: Atrial Fibrillation, COPD, Fibromyalgia, GERD/Reflux, GI Bleed, Hyperlipidemia, Hypertension, Osteoarthritis (OA), Skin Disorder, Sleep Apnea/CPAP/BIPAP, Thyroid Disorder Additional Past Medical History / Comment(s): 02-26-15 ADM W/GI BLEED. Dizziness , Neck Pain; ODILON but no PAP; Gastric Ulcers, Hiatal Hernia; HX Graves dx. Anemia. Complex Vertebral Subluxation; EDEMA PATRICIA LEGS/FEET. GALLBLADDER PROB 2014. HX OF FALLS. ITCHING OF SKIN SINCE RECENT HOSPITAL STAY. Carpal tunnel History of Any Multi-Drug Resistant Organisms: None Reported Past Surgical History: Heart Catheterization, Orthopedic Surgery Additional Past Surgical History / Comment(s): Cardioversion for afib, PATRICIA KNEE arthroscopic surgeries, Spur removal R foot. Cataract removal patricia L eyes with ocular implants. R hand cyst removal, R foot toenail removal. Injections to neck /bilateral knees. Past Anesthesia/Blood Transfusion Reactions: Previous Problems w/ Anesthesia Additional Past Anesthesia/Blood Transfusion Reaction / Comment(s): Pt states after a knee surgery 2002 she had "trouble coming out of anesthesia and was really cold." Pt states she has not recieved blood. 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 Smoking Status: Former smoker Past Alcohol Use History: Rare Past Drug Use History: None Reported - Past Family History Father Family Medical History: Coronary Artery Disease (CAD), Diabetes Mellitus, Liver Disease Additional Family Medical History / Comment(s): Father after recieving xray that damaged his liver. Mother Family Medical History: Dementia, Osteoarthritis (OA) Additional Family Medical History / Comment(s): Mother of alzhiemers at age 73yrs. General Exam General appearance: alert, in no apparent distress, other (This is a well- developed, well-nourished elderly female patient in no acute distress. Vital signs upon presentation are temperature 98.6F, pulse 65, respirations 16, blood pressure 144/82, pulse ox 97% on room air.) Eye exam: Present: normal appearance, PERRL, EOMI. Absent: scleral icterus, conjunctival injection, nystagmus, periorbital swelling ENT exam: Present: normal exam, normal oropharynx, mucous membranes moist Respiratory exam: Present: normal lung sounds bilaterally. Absent: respiratory distress, wheezes, rales, rhonchi, stridor Cardiovascular Exam: Present: regular rate, normal rhythm, normal heart sounds. Absent: systolic murmur, diastolic murmur, rubs, gallop, clicks GI/Abdominal exam: Present: soft, normal bowel sounds. Absent: distended, tenderness, guarding, rebound, rigid Neurological exam: Present: alert, oriented X3, CN II-XII intact Psychiatric exam: Present: normal affect, normal mood Skin exam: Present: warm, dry, intact, normal color. Absent: rash Course Vital Signs 10/10/18 10/10/18 10/10/18 19:51 21:55 23:38 Temperature 98.6 F Pulse Rate 65 74 77 Respiratory 16 16 16 Rate Blood Pressure 144/82 134/72 132/78 O2 Sat by Pulse 97 99 100 Oximetry Medical Decision Making - Medical Decision Making 73-year-old female patient presented to the emergency department today for evaluation of headache 8 days and worsening cough. Physical examination is relatively unremarkable. Patient was neurologically intact with no focal deficits. Lungs are clear to auscultation with good air movement. Vital signs were stable. Labs reviewed and are unremarkable. Chest x-ray showed no acute cardiopulmonary process. CT of the brain was performed and showed no evidence of acute intracranial abnormalities. Upon reevaluation patient does report improvement headache. We will treat for acute bronchitis status post influenza infection. She'll be treated with steroids and Mucinex DM. She is instructed to follow-up with her primary care physician for further evaluation of a headache. She is being discharged back to [facility] on the [place]. Return parameters were discussed in detail. She verbalizes understanding and agrees with this plan. - Lab Data Result diagrams: 10/10/18 21:40 10/10/18 21:40 Lab Results 10/10/18 10/10/18 10/10/18 Range/Units 21:20 21:40 21:40 WBC 7.4 (3.8-10.6) k/uL RBC 3.44 L (3.80-5.40) m/uL Hgb 11.2 L (11.4-16.0) gm/dL Hct 34.3 (34.0-46.0) % MCV 99.8 (80.0-100.0) fL MCH 32.5 (25.0-35.0) pg MCHC 32.5 (31.0-37.0) g/dL RDW 13.8 (11.5-15.5) % Plt Count 200 (150-450) k/uL Neutrophils % 66 % Lymphocytes % 21 % Monocytes % 9 % Eosinophils % 2 % Basophils % 0 % Neutrophils # 4.8 (1.3-7.7) k/uL Lymphocytes # 1.6 (1.0-4.8) k/uL Monocytes # 0.7 (0-1.0) k/uL Eosinophils # 0.1 (0-0.7) k/uL Basophils # 0.0 (0-0.2) k/uL PT (9.0-12.0) sec INR (<1.2) APTT (22.0-30.0) sec Sodium 136 L (137-145) mmol/L Potassium 4.4 (3.5-5.1) mmol/L Chloride 104 (98-107) mmol/L Carbon Dioxide 25 (22-30) mmol/L Anion Gap 7 mmol/L BUN 31 H (7-17) mg/dL Creatinine 0.95 (0.52-1.04) mg/dL Est GFR (CKD-EPI)AfAm 69 (>60 ml/min/1.73 sqM) Est GFR (CKD-EPI)NonAf 60 (>60 ml/min/1.73 sqM) Glucose 108 H (74-99) mg/dL Calcium 8.6 (8.4-10.2) mg/dL Total Bilirubin 0.7 (0.2-1.3) mg/dL AST 24 (14-36) U/L ALT 39 (9-52) U/L Alkaline Phosphatase 88 (38-126) U/L Troponin I (0.000-0.034) ng/mL Total Protein 6.1 L (6.3-8.2) g/dL Albumin 3.3 L (3.5-5.0) g/dL Urine Color Yellow Urine Appearance Clear (Clear) Urine pH 5.5 (5.0-8.0) Ur Specific [place] 1.019 (1.001-1.035) Urine Protein Negative (Negative) Urine Glucose (UA) Negative (Negative) Urine Ketones Negative (Negative) Urine Blood Negative (Negative) Urine Nitrite Negative (Negative) Urine Bilirubin Negative (Negative) Urine Urobilinogen <2.0 (<2.0) mg/dL Ur Leukocyte Esterase Small H (Negative) Urine RBC 2 (0-5) /hpf Urine WBC 2 (0-5) /hpf Ur Squamous Epith Cells 2 (0-4) /hpf Urine Bacteria Rare H (None) /hpf Urine Mucus Few H (None) /hpf 10/10/18 10/10/18 Range/Units 21:40 21:40 WBC (3.8-10.6) k/uL RBC (3.80-5.40) m/uL Hgb (11.4-16.0) gm/dL Hct (34.0-46.0) % MCV (80.0-100.0) fL MCH (25.0-35.0) pg MCHC (31.0-37.0) g/dL RDW (11.5-15.5) % Plt Count (150-450) k/uL Neutrophils % % Lymphocytes % % Monocytes % % Eosinophils % % Basophils % % Neutrophils # (1.3-7.7) k/uL Lymphocytes # (1.0-4.8) k/uL Monocytes # (0-1.0) k/uL Eosinophils # (0-0.7) k/uL Basophils # (0-0.2) k/uL PT 15.4 H (9.0-12.0) sec INR 1.5 H (<1.2) APTT 22.7 (22.0-30.0) sec Sodium (137-145) mmol/L Potassium (3.5-5.1) mmol/L Chloride (98-107) mmol/L Carbon Dioxide (22-30) mmol/L Anion Gap mmol/L BUN (7-17) mg/dL Creatinine (0.52-1.04) mg/dL Est GFR (CKD-EPI)AfAm (>60 ml/min/1.73 sqM) Est GFR (CKD-EPI)NonAf (>60 ml/min/1.73 sqM) Glucose (74-99) mg/dL Calcium (8.4-10.2) mg/dL Total Bilirubin (0.2-1.3) mg/dL AST (14-36) U/L ALT (9-52) U/L Alkaline Phosphatase (38-126) U/L Troponin I <0.012 (0.000-0.034) ng/mL Total Protein (6.3-8.2) g/dL Albumin (3.5-5.0) g/dL Urine Color Urine Appearance (Clear) Urine pH (5.0-8.0) Ur Specific [place] (1.001-1.035) Urine Protein (Negative) Urine Glucose (UA) (Negative) Urine Ketones (Negative) Urine Blood (Negative) Urine Nitrite (Negative) Urine Bilirubin (Negative) Urine Urobilinogen (<2.0) mg/dL Ur Leukocyte Esterase (Negative) Urine RBC (0-5) /hpf Urine WBC (0-5) /hpf Ur Squamous Epith Cells (0-4) /hpf Urine Bacteria (None) /hpf Urine Mucus (None) /hpf - Radiology Data Radiology results: report reviewed, image reviewed 2 views of the chest are obtained. Report was reviewed in its entirety. Impression by Dr. Hood shows normal chest x-rays. CT of the brain was performed. Report was reviewed in its entirety. Impression by Dr. Hood shows no acute intracranial process. Inhalation of changes with small vessel disease. Stable compared to prior study. Disposition Clinical Impression: Headache, Acute bronchitis Disposition: HOME SELF-CARE Condition: Good Instructions (If sedation given, give patient instructions): Acute Bronchitis ( ED), Acute Headache (ED) Additional Instructions: Complete steroid prescription in full. This should help both your cough and headache. Take cough medication as directed. Follow-up with Dr. Eaton for further evaluation and management of your neck pain. Return to the emergency department for any new, worsening, or concerning symptoms. Prescriptions: guaiFENesin-DM 600/30MG [Mucinex Dm] 1 each PO Q12HR #10 tab.er.12h predniSONE 50 mg PO DAILY #5 tablet Is patient prescribed a controlled substance at d/c from ED?: No Referrals: Troy Benoit DO [Primary Care Provider] - 1-2 days Time of Disposition: 23:25
[2018-10-10 22:10] LABS: Basophils % (A) 0 %; Eosinophils # (A) 0.1 k/uL (0-0.7); Eosinophils % (A) 2 %; HCT 34.3 % (34.0-46.0); HGB 11.2 gm/dL (11.4-16.0); Lymphocytes # (A) 1.6 k/uL (1.0-4.8); Lymphocytes % (A) 21 %; MCH 32.5 pg (25.0-35.0); MCHC 32.5 g/dL (31.0-37.0); MCV 99.8 fL (80.0-100.0); Mean Platelet Volume 7.4; Monocytes # (A) 0.7 k/uL (0-1.0); Monocytes % (A) 9 %; Neutrophils # (A) 4.8 k/uL (1.3-7.7); Neutrophils % (A) 66 %; Platelet Count 200 k/uL (150-450); RBC 3.44 m/uL (3.80-5.40); RDW 13.8 % (11.5-15.5); WBC 7.4 k/uL (3.8-10.6)
[2018-10-10 22:17] LABS: INR 1.5 (<1.2); Partial Thromboplastin Time 22.7 sec (22.0-30.0); Prothrombin Time 15.4 sec (9.0-12.0)
[2018-10-10 22:26] LABS: Albumin 3.3 g/dL (3.5-5.0); Calcium 8.6 mg/dL (8.4-10.2); Potassium 4.4 mmol/L (3.5-5.1); Total Bilirubin 0.7 mg/dL (0.2-1.3); Total Protein 6.1 g/dL (6.3-8.2)
--- NOTE | 2018-10-10 22:36 | CT ---
EXAM: CT Head Without Intravenous Contrast CLINICAL HISTORY: Pain TECHNIQUE: Axial computed tomography images of the head/brain without intravenous contrast. DLP is 1050 mGy-cm. This CT exam was performed using one or more of the following dose reduction techniques: automated exposure control, adjustment of the mA and/or kV according to patient size, and/or use of iterative reconstruction technique. COMPARISON: 09/03/2014 FINDINGS: No intracranial hemorrhage, abnormal intra- or extra-axial collections or parenchymal lesions are seen. There are mild involutional changes with prominence of the sulci, basal cisterns and ventricles. A few Scattered white matter hypoattenuations are present, likely from small vessel disease. The manzanares-white differentiation is preserved. No evidence of mass effect, midline shift, or edema. The osseous structures are unremarkable. The visualized portions of the paranasal sinuses are clear. IMPRESSION: 1. No acute intracranial process. 2. Involutional changes with small vessel disease. Stable compared to prior study
--- NOTE | 2018-10-10 22:43 | XR ---
EXAM: XR Chest, 2 Views CLINICAL HISTORY: Weakness TECHNIQUE: Frontal and lateral views of the chest. COMPARISON: 09/29/18 FINDINGS: Lungs: Unremarkable. No consolidation. Pleural space: Unremarkable. No pneumothorax. Heart: Unremarkable. No cardiomegaly. Mediastinum: Unremarkable. Bones/joints: Unremarkable. IMPRESSION: Normal chest x-rays.
[2018-10-10 23:38] VITALS: BP 132/78; PULSE 77
== END 2018-10-11 00:12 | disposition home or self-care (01) ==
LOC: EC 19:33
DX: J20.9 Acute bronchitis, unspecified (principal); R51 Headache; J44.9 Chronic obstructive pulmonary disease, unspecified; I48.91 Unspecified atrial fibrillation; M79.7 Fibromyalgia; K21.9 Gastro-esophageal reflux disease without esophagitis; E78.5 Hyperlipidemia, unspecified; I10 Essential (primary) hypertension; M19.90 Unspecified osteoarthritis, unspecified site; E07.9 Disorder of thyroid, unspecified; F32.9 Major depressive disorder, single episode, unspecified; Z87.891 Personal history of nicotine dependence; Z79.01 Long term (current) use of anticoagulants; Z79.899 Other long term (current) drug therapy; Z79.890 Hormone replacement therapy; Z88.0 Allergy status to penicillin; Z88.1 Allergy status to other antibiotic agents; Z88.2 Allergy status to sulfonamides; Z88.5 Allergy status to narcotic agent; Z91.048 Other nonmedicinal substance allergy status; Z95.818 Presence of other cardiac implants and grafts
CPT/HCPCS: 36415; 93005; 80053; 84484; 85025; 85610; 85730; 81001; 71046; 70450; 99285; 96374; 96375; J1200; J1885

== ENCOUNTER → 2018-11-18 | Outpatient (CLI) | payer MEDICARE ==
[2018-11-18 10:16] LABS: Basophils % (A) 1 %; Eosinophils # (A) 0.1 k/uL (0-0.7); Eosinophils % (A) 2 %; HCT 36.5 % (34.0-46.0); HGB 11.7 gm/dL (11.4-16.0); Lymphocytes # (A) 1.1 k/uL (1.0-4.8); Lymphocytes % (A) 25 %; MCH 31.3 pg (25.0-35.0); MCV 97.7 fL (80.0-100.0); Mean Platelet Volume 8.6; Monocytes # (A) 0.4 k/uL (0-1.0); Monocytes % (A) 10 %; Neutrophils # (A) 2.6 k/uL (1.3-7.7); Neutrophils % (A) 61 %; Platelet Count 167 k/uL (150-450); RBC 3.74 m/uL (3.80-5.40); RDW 14.7 % (11.5-15.5); WBC 4.3 k/uL (3.8-10.6)
[2018-11-18 16:05] LABS: Albumin/Globulin Ratio 2.5 (1.60-3.17); Anion Gap 7.8 mmol/L (4.00-12.00); Carbon Dioxide 27.2 mmol/L (21.6-31.8); Globulin 1.6 g/dL (1.6-3.3); Potassium 4.3 mmol/L (3.5-5.5); Total Bilirubin 0.7 mg/dL (0.2-1.2); Total Protein 5.6 g/dL (6.2-8.2)
== END | disposition home or self-care (01) ==
LOC: LABWHC1 09:05
PROVIDERS: ATTEND Internal Medicine Gastroenterology
DX: R10.13 Epigastric pain (principal)
CPT/HCPCS: 36415; 80053; 82150; 83690; 85025

== ENCOUNTER → 2018-11-28 | Outpatient (CLI) | payer MEDICARE ==
--- NOTE | 2018-11-28 18:40 | US ---
EXAMINATION TYPE: US abdomen complete DATE OF EXAM: 11/28/2018 COMPARISON: NONE CLINICAL HISTORY: 73-year-old female R10.13 Epigastric Pain. TECHNIQUE: Multiple sonographic images of the abdomen are obtained. FINDINGS: EXAM MEASUREMENTS: Liver Length: 13.0 cm Gallbladder : Surgically absent CBD: 7.5 mm Spleen: 9.2 cm Right Kidney: 9.1 cm Left Kidney: 10.2 cm Professor Of Management notes: Patient of large body habitus with severe overlying bowel gas, technically difficu lt study. Pancreas: Obscured by bowel gas Liver: Somewhat limited visualization with heterogeneous appearance. Gallbladder: Surgically absent Evidence for sonographic Alexander's sign: no CBD: wnl Spleen: wnl Right Kidney: No hydronephrosis or masses seen, inferior pole obscured by overlying bowel gas, limit ed visualization Left Kidney: No hydronephrosis. The inferior pole obscured by overlying bowel gas, limited visualizat ion Upper IVC: wnl Abd Aorta: wnl IMPRESSION: 1. Technical limitations due to bowel gas and large patient body habitus. 2. Somewhat heterogeneous appearance to the liver could represent nonspecific hepatocellular disease. Correlate with LFTs and patient risk factors. 3. Mild biliary ductal dilatation at 7.5 mm likely relates to postcholecystectomy status. This can be corroborated with alkaline phosphatase and bilirubin levels.
== END ==
LOC: RADUSWWP 14:42
PROVIDERS: ATTEND Internal Medicine Gastroenterology
DX: K83.8 Other specified diseases of biliary tract (principal); R10.13 Epigastric pain
CPT/HCPCS: 76700

== ENCOUNTER → 2019-01-11 | Outpatient (CLI) | payer MEDICARE ==
--- NOTE | 2019-01-11 15:40 | XR ---
EXAMINATION TYPE: XR chest 2V DATE OF EXAM: 01/11/2019 COMPARISON: Prior chest x-ray 10/10/2018 HISTORY: Increased shortness of breath, COPD TECHNIQUE: Frontal and lateral views of the chest are obtained. FINDINGS: There is no focal air space opacity, pleural effusion, or pneumothorax seen. The cardiac silhouette size is enlarged. The aorta is dense. The osseous structures are remarkable for a wedge c ompression deformity midthoracic spine as noted on prior exam. Bone mineralization is reduced. Promin ent lung biopsy may be indicative of underlying COPD. IMPRESSION: Cardiomegaly is again noted.
== END | disposition home or self-care (01) ==
LOC: RADXRYALE 14:02
PROVIDERS: ATTEND Physician Assistant
DX: I51.7 Cardiomegaly (principal); I50.32 Chronic diastolic (congestive) heart failure
CPT/HCPCS: 71046

== ENCOUNTER → 2019-05-08 | Outpatient (CLI) | payer MEDICARE ==
--- NOTE | 2019-05-08 16:33 | XR ---
EXAMINATION TYPE: XR chest 2V DATE OF EXAM: 05/08/2019 COMPARISON: Prior chest x-ray 01/11/2019 HISTORY: Cough, COPD and dyspnea TECHNIQUE: Frontal and lateral views of the chest are obtained. FINDINGS: There is no focal air space opacity, pleural effusion, or pneumothorax seen. The cardiac silhouette size is stable and enlarged. Aorta is dense. The osseous structures are remarkable for mi dthoracic compression abnormality which is stable.. Prominent lung volumes are again noted. IMPRESSION: Stable cardiomegaly and thoracic compression fracture
== END | disposition home or self-care (01) ==
LOC: RADXRYALE 15:33
PROVIDERS: ATTEND Physician Assistant Medical
DX: J44.1 Chronic obstructive pulmonary disease with (acute) exacerbation (principal); I50.22 Chronic systolic (congestive) heart failure; R06.00 Dyspnea, unspecified
CPT/HCPCS: 71046

== ENCOUNTER → 2019-05-19 | Outpatient (CLI) | payer MEDICARE ==
--- NOTE | 2019-05-22 08:05 | BD ---
EXAMINATION TYPE: Axial Bone Density DATE OF EXAM: 05/19/2019 COMPARISON: 05.20.2001 CLINICAL HISTORY: M [age] FRAX RISK QUESTIONS: Alcohol (3 or more units per day): no Family History (Parent hip fracture): no Glucocorticoids (More than 3mos): no (Ex: prednisone, prednisolone, methylprednisolone, dexamethasone, and hydrocortisone). History of Fracture in Adulthood: no Secondary Osteoporosis: 1. Type 1 Diabetes: no 2. Hyperthyroidism: no 3. Menopause before 45: pt unsure 4. Malnutrition: no 5. Chronic liver disease: no Rheumatoid Arthritis: no Current Tobacco Use: no RISK FACTORS HISTORY OF: Family History of Osteoporosis: yes Active: no Diet low in dairy products/other sources of calcium: yes Postmenopausal woman: unsure Lost more than 2 inches in height since high school: yes MEDICATIONS: inhalers, warfarin, metoprolol, losartan Thyroid Medications: levothyroxine How Lon years Additional History: EXAM MEASUREMENTS: Bone mineral densitometry was performed using the Keep[employer] System. Bone mineral density as measured about the Lumbar spine is: ----- L1-L4(G/cm2): 1.098 T Score Values are as follows: ----- L2: -1.7 ----- L3: -0.1 ----- L4: -0.3 ----- L1-L4: -0.7 Bone mineral density has: decreased -8.2 % since study of: 05.20.2001 Bone mineral density about the R hip (g/cm2): 0.835 Bone mineral density about the L hip (g/cm2): 0.866 T Score values are as follows: -----R Neck: -1.5 -----L Neck: -1.2 -----R Total: -1.5 -----L Total: -1.3 Bone mineral density has: decreased -22.9 % since study of: 05.20.2001 IMPRESSION: Osteopenia (T Score between -2.5 and -1). There is slightly increased risk of fracture and the patient may be considered for treatment. Re-Screen 2-5 years. NOTE: T-SCORE=SD OF THE YOUNG ADULT MEAN.
== END ==
LOC: RADBDWWP 14:58
PROVIDERS: ATTEND Physician Assistant Medical
DX: M85.80 Other specified disorders of bone density and structure, unspecified site (principal); S22.008A Other fracture of unspecified thoracic vertebra, initial encounter for closed fracture; X58.XXXA Exposure to other specified factors, initial encounter
CPT/HCPCS: 77080

== ENCOUNTER → 2019-05-22 | Outpatient (CLI) | payer MEDICARE ==
--- NOTE | 2019-05-22 15:10 | XR ---
EXAMINATION TYPE: XR chest 2V DATE OF EXAM: 05/22/2019 COMPARISON: 2 view chest x-ray dated 05/08/2019 HISTORY: Pain, dyspnea TECHNIQUE: Frontal and lateral views of the chest are obtained. FINDINGS: Patient is rotated. There is no focal air space opacity, pleural effusion, or pneumothorax seen. The cardiac silhouette size is stable, enlarged. The osseous structures are remarkable for compression deformity in the midthoracic spine similar to prior exam. The aorta is dense. Prominent l stacy volume may be indicative of underlying COPD. IMPRESSION: Stable findings described above.
--- NOTE | 2019-05-22 15:12 | XR ---
Dressing spine HISTORY: Pain 2 views of the thoracic spine correlated to chest x-ray 05/08/2019 The compression fracture at T8 is again noted and shows a similar appearance to loss of height of farzaneh roximately 50%. No evident retropulsion. Bone mineralization is reduced. There is multilevel spondylo sis. IMPRESSION: Chronic thoracic compression fracture.
== END | disposition home or self-care (01) ==
LOC: RADXRYALE 14:11
PROVIDERS: ATTEND Physician Assistant Medical
DX: S22.068A Other fracture of T7-T8 thoracic vertebra, initial encounter for closed fracture (principal); M43.8X4 Other specified deforming dorsopathies, thoracic region; I51.7 Cardiomegaly; I77.89 Other specified disorders of arteries and arterioles; I50.32 Chronic diastolic (congestive) heart failure; I48.91 Unspecified atrial fibrillation
CPT/HCPCS: 71046; 72072

== ENCOUNTER → 2020-01-23 | Outpatient (CLI) | payer MEDICARE ==
--- NOTE | 2020-01-23 15:28 | XR ---
Chest x-ray with right RIBS HISTORY: Trauma one week prior, pain Frontal view of the chest and 4 views the right ribs Correlation to chest x-ray 05/22/2019 No evident displaced rib fracture. There is no pneumothorax or pleural effusion. There is a spinal cu rvature. Aorta is dense. Heart size is stable. No evident airspace disease. IMPRESSION: No displaced rib fracture is evident, bone scan could be performed for increased sensitiv ity as indicated.
== END | disposition home or self-care (01) ==
LOC: RADXRYALE 11:50
PROVIDERS: ATTEND Family Medicine
DX: R07.1 Chest pain on breathing (principal)

== ENCOUNTER → 2020-02-12 | Outpatient (CLI) | payer MEDICARE ==
--- NOTE | 2020-02-12 09:47 | XR ---
EXAMINATION TYPE: XR knee complete LT DATE OF EXAM: 02/12/2020 COMPARISON: NONE HISTORY: Pain TECHNIQUE: Three views are submitted. FINDINGS: There is arthropathy involving the medial compartment of the knee and patellofemoral joint with hyper trophic changes. Diffuse osteopenia. Small amount of fluid in the suprapatellar bursa. No erosive bre nges. No acute fracture.. Osseous structures are intact. No acute fracture seen. IMPRESSION: 1. No acute fracture or dislocation. 2. Severe osteoarthritis with diffuse osteopenia.
== END | disposition home or self-care (01) ==
LOC: RADXRYALE 09:17
PROVIDERS: ATTEND Family Medicine
DX: M17.12 Unilateral primary osteoarthritis, left knee (principal); M85.862 Other specified disorders of bone density and structure, left lower leg; R29.6 Repeated falls

== ENCOUNTER → 2020-10-09 | Outpatient (CLI) | payer OTHER ==
--- NOTE | 2020-10-09 14:40 | XR ---
Cervical spine HISTORY: Neck pain 5 views of the cervical spine Bone mineralization is reduced. Cervical vertebral bodies show preserved height and near-anatomic ali gnment. Multilevel facet arthropathy change present. Loss of disc height present at C4-5, C5-6 with s ome associated spondylosis, minimal anterolisthesis grade 1 C5-6. There is some facet arthropathy bre nge. No evident foraminal encroachment on oblique views. Probable apical scarring vascular calcificat ions present along the distribution of the carotid artery on the right. Punctate calcific densities a re present over the right upper chest. C7-T1 is not included on the exam. Odontoid view is limited. IMPRESSION: Degenerative disc disease and facet arthropathy, additional images C7-T1 and odontoid neil l be provided at no additional charge the patient should it be requested.
== END | disposition home or self-care (01) ==
LOC: RADXRYALE 13:17
PROVIDERS: ATTEND Family Medicine
DX: M50.30 Other cervical disc degeneration, unspecified cervical region (principal); M47.812 Spondylosis without myelopathy or radiculopathy, cervical region
CPT/HCPCS: 72050

== ENCOUNTER → 2020-10-14 | Outpatient (CLI) | payer MEDICARE, OTHER ==
--- NOTE | 2020-10-14 17:33 | US ---
EXAMINATION TYPE: US carotid duplex BILAT DATE OF EXAM: 10/14/2020 COMPARISON: 11/30/2018 CLINICAL HISTORY: 75-year-old female I65.22 Occlusion and stenosis of left carotid artery. Dizziness TECHNIQUE: Carotid duplex ultrasound examination. Indirect Doppler criteria was utilized. FINDINGS: EXAM MEASUREMENTS: RIGHT: Peak Systolic Velocity (PSV) cm/sec ----- Right CCA: 58.6 ----- Right ICA: 111.0 ----- Right ECA: 61.6 ICA/CCA ratio: 1.9 RIGHT: End Diastole cm/sec ----- Right CCA: 11.6 ----- Right ICA: 26.3 ----- Right ECA: 8.6 LEFT: Peak Systolic Velocity (PSV) cm/sec ----- Left CCA: 63.0 ----- Left ICA: 60.4 ----- Left ECA: 76.7 ICA/CCA ratio: 1.0 LEFT: End Diastole cm/sec ----- Left CCA: 16.0 ----- Left ICA: 14.0 ----- Left ECA: 6.0 VERTEBRALS (direction of flow): Right Vertebral: Antegrade Left Vertebral: Antegrade Rhythm: Normal Hand Rigger notes: No significant stenosis Matos scale images show mild atherosclerotic change at the right bifurcation. IMPRESSION: No hemodynamically significant internal carotid artery stenosis on either side. Criteria for Assigning % of Stenosis / Diameter reduction (Estimation based on the indirect measurements of the internal carotid artery velocities (ICA PSV). 1. Normal (no stenosis)=ICA PSV < 125 cm/s: ratio < 2.0: ICA EDV<40 cm/s. 2. Less than 50% stenosis=ICA PSV < 125 cm/s: ratio < 2.0: ICA EDV<40 cm/s. 3. 50 to 69% stenosis=ICA PSV of 125 to 230 cm/s: ration 2.0 ? 4.0: ICA EDV 40-100 cm/s. 4. Greater than 70% stenosis to near occlusion= ICA PSV > 230 cm/s: ratio > 4.0: ICA EDV > 100 cm/s. 5. Near occlusion= ICA PSV velocities may be low or undetectable: variable ratio and ICA EDV. 6. Total occlusion=unable to detect flow.
== END ==
LOC: RADUSWWP 14:49
PROVIDERS: ATTEND Family Medicine
DX: R42 Dizziness and giddiness (principal)
CPT/HCPCS: 93880

== ENCOUNTER → 2021-04-14 | Outpatient (CLI) | payer MEDICARE, OTHER ==
--- NOTE | 2021-04-14 13:05 | XR ---
Sacrum and coccyx HISTORY: M546,[id number] THOR PAIN,SAC DISORDERS, trauma and pain Frontal lateral views of the sacrum and coccyx submitted. Vascular calcifications are noted in the pelvis. Bone mineralization is reduced which may limit sensi tivity. Degenerative disc changes are noted in the visualized spine. Sacralized L5 is noted incidenta lly. A contour abnormality noted along the anterior sacrum likely represents a normal variant rather than nondisplaced fracture. There is no evident subluxation. There is an anterolisthesis grade 1 L3-4. If impression: Low bone mineralization. Degenerative disc disease with spondylolisthesis. Findings in th e sacrum distally as described, bone scan or MRI could be confirmatory.
--- NOTE | 2021-04-14 13:12 | XR ---
Thoracic spine HISTORY: M546,M533 THOR PAIN,SAC DISORDERS Frontal lateral views of the thoracic spine on 3 images Bone mineralization is reduced. Thoracic vertebral bodies show table appearance, mid thoracic vertebr al body shows loss of height of approximately 50% as on prior T8. Multilevel spondylosis is again not ed. Mild kyphosis centered at T8 as on prior exam. I question some slight depression of the superior plate T12. No evident retropulsion. Dense vascular calcifications are noted incidentally. IMPRESSION: There may be some loss of height superior endplate of T12, bone scan or MRI may be of dilia efit to assess for acuity. Chronic T8 compression fracture, thoracic spondylosis
== END | disposition home or self-care (01) ==
LOC: RADXRYALE 11:18
PROVIDERS: ATTEND Family Medicine
DX: M48.54XA Collapsed vertebra, not elsewhere classified, thoracic region, initial encounter for fracture (principal); M47.814 Spondylosis without myelopathy or radiculopathy, thoracic region; M51.36 Other intervertebral disc degeneration, lumbar region; M43.16 Spondylolisthesis, lumbar region
CPT/HCPCS: 72072; 72220

== ENCOUNTER 2021-06-06 21:53 | Emergency (ER) | payer MEDICARE, OTHER ==
[2021-06-06 22:07] VITALS: RESP 18
[2021-06-06] MEDS ORDERED: HYDROmorphone 1 MG/ML 1 ML SYRINGE IVP STA (22:15)
[2021-06-06] MEDS ORDERED: SODIUM CHLORIDE 0.9% 1,000 ML IV ONE (22:15)
[2021-06-06 22:36] LABS: Basophils % (A) 0 %; Eosinophils % (A) 0 %; HCT 36.3 % (34.0-46.0); HGB 11.7 gm/dL (11.4-16.0); Lymphocytes % (A) 11 %; MCH 34.4 pg (25.0-35.0); MCHC 32.3 g/dL (31.0-37.0); MCV 106.7 fL (80.0-100.0); Macrocytosis Moderate; Mean Platelet Volume 7.9; Monocytes # (A) 0.5 k/uL (0-1.0); Monocytes % (A) 5 %; Neutrophils # (A) 8.1 k/uL (1.3-7.7); Neutrophils % (A) 83 %; Platelet Count 155 k/uL (150-450); RDW 12.7 % (11.5-15.5); WBC 9.8 k/uL (3.8-10.6)
[2021-06-06 22:51] LABS: ALT 18 U/L (4-34); AST 38 U/L (14-36); African American GFR (CKD) >90 (>60 ml/min/1.73 sqM); Albumin 4.1 g/dL (3.5-5.0); Alkaline Phosphatase 52 U/L (38-126); Anion Gap 8 mmol/L; Blood Urea Nitrogen 26 mg/dL (7-17); Calcium 9.1 mg/dL (8.4-10.2); Carbon Dioxide 22 mmol/L (22-30); Chloride 103 mmol/L (98-107); Glucose 157 mg/dL (74-99); Non-African American GFR(CKD) 85 (>60 ml/min/1.73 sqM); Potassium 4.4 mmol/L (3.5-5.1); Sodium 133 mmol/L (137-145); Total Bilirubin 0.9 mg/dL (0.2-1.3); Total Protein 6.7 g/dL (6.3-8.2)
[2021-06-06 22:57] LABS: INR 1.2 (<1.2); Prothrombin Time 12.2 sec (9.0-12.0)
[2021-06-06 22:58] LABS: Partial Thromboplastin Time 20.5 sec (22.0-30.0)
--- NOTE | 2021-06-06 23:04 | CT ---
EXAMINATION TYPE: CT brain cspine wo con DATE OF EXAM: 06/06/2021 COMPARISON: CT brain 10/10/2018 HISTORY: fall CT DLP: 1572 mGycm Automated exposure control for dose reduction was used. Images obtained of the brain without contrast. There is some cerebral cortical atrophy. There is no mass effect nor midline shift. There is no sign of intracranial hemorrhage. Calvarium is intact. Skull base is intact. There is normal aeration of th e mastoid sinuses. There is wall thickening of the right maxillary sinus. Mastoid sinuses appear norm al. Cervical vertebra have normal alignment. Posterior elements are intact. Disc spaces are fairly normal . There is no compression fracture. Facet joints are intact. Prevertebral soft tissues are intact. IMPRESSION: No acute intracranial abnormality. 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 Brain appears unchanged compared to old exam. Minor degenerative changes in the cervical spine. No fracture.
--- NOTE | 2021-06-06 23:10 | XR ---
EXAMINATION TYPE: XR humerus LT DATE OF EXAM: 06/06/2021 COMPARISON: NONE HISTORY: Fall. Shoulder pain TECHNIQUE: 3 views FINDINGS: There is comminuted left humeral neck fracture. There is anterior dislocation of the davie l head. There is some impaction of the fracture. AC joint is intact. Scapula appears intact. IMPRESSION: There is comminuted and impacted anterior fracture dislocation of the left shoulder joint .
--- NOTE | 2021-06-06 23:12 | XR ---
EXAMINATION TYPE: XR shoulder limited LT DATE OF EXAM: 06/06/2021 COMPARISON: NONE HISTORY: Fall. Pain. TECHNIQUE: Single view FINDINGS: There is comminuted impacted humeral neck fracture with anterior dislocation of the humeral head. The scapula appears intact. AC joint is anatomic. IMPRESSION: Comminuted anterior fracture dislocation of the left humeral head.
--- NOTE | 2021-06-06 23:26 | ED ---
Fall HPI - General Chief Complaint: Fall Stated Complaint: Fall Time Seen by Provider: 06/06/21 21:58 Source: patient, EMS, RN notes reviewed Mode of arrival: EMS - History of Present Illness Initial Comments: Patient is a 76-year-old female that presents to the emergency department status post fall from standing height and she notes that she got up out of her chair a few steps felt lightheaded and fell backwards. Patient notes that she does have a history of falls hence why she has some missing teeth. Patient notes that she does take warfarin for A. fib. Patient denied losing consciousness. She notes that she is having head pain and left shoulder pain. Patient was in a c-collar upon arrival. Patient noted that her pain was approximately a 8-9 out of 10 with no relief. She noted that movement aggravated pain. She denied chest pain shortness of breath headache nausea vomiting diarrhea constipation fever fatigue chills. - Related Data Home Medications Medication Instructions Recorded Confirmed Cholecalciferol (Vitamin D3) 5,000 unit PO DAILY 09/03/14 10/10/18 [Vitamin D3] Metoprolol Tartrate [Lopressor] 100 mg PO BID 09/03/14 10/10/18 Nitroglycerin [Nitrostat] 0.4 mg PO Q5M PRN 09/03/14 10/10/18 Famotidine [Pepcid] 20 mg PO DAILY 09/27/18 09/27/18 Furosemide [Lasix] 20 mg PO MOWEFR 09/27/18 10/10/18 Levothyroxine Sodium [Synthroid] 112 mcg PO DAILY 09/27/18 10/10/18 Losartan Potassium 50 mg PO DAILY 09/27/18 10/10/18 Lactose-Reduced Food [Ensure Plus] 237 ml PO DAILY 10/10/18 10/10/18 Losartan Potassium [Cozaar] 100 mg PO DAILY 10/10/18 10/10/18 Warfarin [Coumadin] 3.5 mg PO DAILY@1700 10/10/18 10/10/18 Warfarin [Coumadin] 5 mg PO DAILY 10/10/18 10/10/18 guaiFENesin-DM 100-10MG/5ML 10 ml PO Q4H PRN 10/10/18 10/10/18 [Robitussin DM] Previous Rx's Medication Instructions Recorded Acetaminophen Tab [Tylenol] 650 mg PO Q6HR PRN tab 10/03/18 Benzocaine/Menthol Lozeng [Cepacol 1 each MUCOUS MEM Q4HR PRN lozenge 10/03/18 lozenge] Diltiazem Oral [Cardizem*] 90 mg PO Q6HR tab 10/03/18 Ipratropium-Albuterol Nebulize 3 ml INHALATION RT-QID ampul.neb 10/03/18 [Duoneb 0.5 mg-3 mg/3 ml Soln] Melatonin 3 mg PO HS #1 tablet 10/03/18 Phenol 1.4% [place] [Sore Throat 1 applic MUCOUS MEM Q2HR PRN 10/03/18 [place] (Chloraseptic)] bottle guaiFENesin-DM 600/30MG [Mucinex 1 each PO Q12HR #10 tab.er.12h 10/10/18 Dm] predniSONE 50 mg PO DAILY #5 tablet 10/10/18 Acetaminophen Tab [Tylenol] 650 mg PO Q6H 5 Days #40 tab 06/07/21 Allergies Allergy/AdvReac Type Severity Reaction Status Date / Time erythromycin base Allergy Unknown Verified 10/10/18 20:53 [From E-Mycin] Penicillins Allergy Unknown Verified 10/10/18 20:53 Sulfa (Sulfonamide Allergy Unknown Verified 10/10/18 20:53 Antibiotics) adhesive AdvReac BRUISES, Verified 10/10/18 20:53 ITCHING hydrocodone AdvReac AVOIDS Verified 10/10/18 20:53 NARCOTICS D/T PERSONAL REASONS NITRO PATCHES AdvReac HEADACHES Uncoded 03/11/15 17:05 Review of Systems ROS Statement: Those systems with pertinent positive or pertinent negative responses have been documented in the HPI. ROS Other: All systems not noted in ROS Statement are negative. Past Medical History Past Medical History: Atrial Fibrillation, COPD, Fibromyalgia, GERD/Reflux, GI Bleed, Hyperlipidemia, Hypertension, Osteoarthritis (OA), Skin Disorder, Sleep Apnea/CPAP/BIPAP, Thyroid Disorder Additional Past Medical History / Comment(s): 02-26-15 ADM W/GI BLEED. Dizziness, Neck Pain; ODILON but no PAP; Gastric Ulcers, Hiatal Hernia; HX Graves dx. Anemia. Complex Vertebral Subluxation; EDEMA PATRICIA LEGS/FEET. GALLBLADDER PROB 11/2014. HX OF FALLS. ITCHING OF SKIN SINCE RECENT HOSPITAL STAY. Carpal tunnel History of Any Multi-Drug Resistant Organisms: None Reported Past Surgical History: Heart Catheterization, Orthopedic Surgery Additional Past Surgical History / Comment(s): Cardioversion for afib, PATRICIA KNEE arthroscopic surgeries, Spur removal R foot. Cataract removal patricia L eyes with ocular implants. R hand cyst removal, R foot toenail removal. Injections to neck/bilateral knees. Past Anesthesia/Blood Transfusion Reactions: Previous Problems w/ Anesthesia Additional Past Anesthesia/Blood Transfusion Reaction / Comment(s): Pt states after a knee surgery 2002 she had "trouble coming out of anesthesia and was really cold." Pt states she has not recieved blood. Past Psychological History: Depression Past Alcohol Use History: Rare Past Drug Use History: None Reported - Past Family History Father Family Medical History: Coronary Artery Disease (CAD), Diabetes Mellitus, Liver Disease Additional Family Medical History / Comment(s): Father after recieving xray that damaged his liver. Mother Family Medical History: Dementia, Osteoarthritis (OA) Additional Family Medical History / Comment(s): Mother of alzhiemers at age 73yrs. General Exam Limitations: physical limitation General appearance: alert, in no apparent distress, other (C-collar in place) Head exam: Present: atraumatic, normocephalic, normal inspection Eye exam: Present: normal appearance, PERRL, EOMI. Absent: scleral icterus, conjunctival injection, periorbital swelling ENT exam: Present: normal exam, mucous membranes moist Neck exam: Present: normal inspection. Absent: tenderness, meningismus, lymphadenopathy Respiratory exam: Present: normal lung sounds bilaterally. Absent: respiratory distress, wheezes, rales, rhonchi, stridor Cardiovascular Exam: Present: regular rate, normal rhythm, normal heart sounds. Absent: systolic murmur, diastolic murmur, rubs, gallop, clicks GI/Abdominal exam: Present: soft, normal bowel sounds. Absent: distended, tenderness, guarding, rebound, rigid Left Shoulder Exam: Present: tenderness, swelling, deformity, dislocation. Absent: normal inspection, full ROM, abrasion, laceration, ecchymosis, crepitus Vascular: Absent: vascular compromise Neurological exam: Present: alert, oriented X3 Psychiatric exam: Present: normal affect, normal mood Skin exam: Present: warm, dry, intact, normal color. Absent: rash Course Vital Signs 06/06/21 06/06/21 06/07/21 22:02 23:04 01:15 Temperature 97.3 F L Pulse Rate 69 71 66 Respiratory 18 18 18 Rate Blood Pressure 184/89 156/73 183/78 O2 Sat by Pulse 95 97 100 Oximetry 06/07/21 06/07/21 01:20 01:27 Temperature Pulse Rate 67 65 Respiratory 18 18 Rate Blood Pressure 139/118 174/98 O2 Sat by Pulse 97 100 Oximetry Medical Decision Making - Medical Decision Making 76-year-old female status post fall with head injury on blood thinners and left shoulder injury. CT of the brain and C-spine, x-ray left shoulder, labs, 1 mg of Dilaudid ordered. Labs: Unremarkable. X-ray left shoulder shows comminuted anterior fracture dislocation of the left humeral head. CT negative for any acute process. Reduction of shoulder attempted. Sling applied. Dr. Goyal orthopedist was consulted and states that they will try to fit patient for surgery this weekend but are unsure schedule. Patient wishes to go home at this time. Pain medication sent to pharmacy. Case discussed with Dr. Xiao, patient discharge home with pain medication with close follow-up with orthopedics. - Lab Data Result diagrams: 06/06/21 22:18 06/06/21 22:18 Lab Results 06/06/21 06/06/21 06/06/21 Range/Units 22:18 22:18 22:18 WBC 9.8 (3.8-10.6) k/uL RBC 3.40 L (3.80-5.40) m/uL Hgb 11.7 (11.4-16.0) gm/dL Hct 36.3 (34.0-46.0) % MCV 106.7 H (80.0-100.0) fL MCH 34.4 (25.0-35.0) pg MCHC 32.3 (31.0-37.0) g/dL RDW 12.7 (11.5-15.5) % Plt Count 155 (150-450) k/uL MPV 7.9 Neutrophils % 83 % Lymphocytes % 11 % Monocytes % 5 % Eosinophils % 0 % Basophils % 0 % Neutrophils # 8.1 H (1.3-7.7) k/uL Lymphocytes # 1.0 (1.0-4.8) k/uL Monocytes # 0.5 (0-1.0) k/uL Eosinophils # 0.0 (0-0.7) k/uL Basophils # 0.0 (0-0.2) k/uL Macrocytosis Moderate PT 12.2 H (9.0-12.0) sec INR 1.2 H (<1.2) APTT 20.5 L (22.0-30.0) sec Sodium 133 L (137-145) mmol/L Potassium 4.4 (3.5-5.1) mmol/L Chloride 103 (98-107) mmol/L Carbon Dioxide 22 (22-30) mmol/L Anion Gap 8 mmol/L BUN 26 H (7-17) mg/dL Creatinine 0.67 (0.52-1.04) mg/dL Est GFR (CKD-EPI)AfAm >90 (>60 ml/min/1.73 sqM) Est GFR (CKD-EPI)NonAf 85 (>60 ml/min/1.73 sqM) Glucose 157 H (74-99) mg/dL Calcium 9.1 (8.4-10.2) mg/dL Total Bilirubin 0.9 (0.2-1.3) mg/dL AST 38 H (14-36) U/L ALT 18 (4-34) U/L Alkaline Phosphatase 52 (38-126) U/L Total Protein 6.7 (6.3-8.2) g/dL Albumin 4.1 (3.5-5.0) g/dL - Radiology Data Radiology results: report reviewed, image reviewed X-ray of the left shoulder: Comminuted anterior fracture dislocation of the left humeral head. CT of the brain: No acute intracranial abnormality. 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 Brain appears unchanged compared to old exam. Minor degenerative changes [place] spine. No fracture. X-ray right knee: Moderate osteophyte versus worsen the medial joint space no fracture. He joint effusion. Disposition Clinical Impression: Fracture of head of left humerus, Dislocation of left shoulder joint Disposition: HOME SELF-CARE Condition: Stable Instructions (If sedation given, give patient instructions): Fall Prevention for Older Adults (ED) Additional Instructions: Please return to the Emergency Department if symptoms worsen or any other concerns. Follow-up with primary care 1-2 days. Take pain medication as prescribed. Follow-up with orthopedics as soon as possible. Keep arm in sling throughout the day and night. Is patient prescribed a controlled substance at d/c from ED?: No Referrals: Troy Benoit DO [Primary Care Provider] - 1-2 days Pushpa Goyal DO [Doctor of Osteopathic Medicine] - 1-2 days Time of Disposition: 02:37
[2021-06-07] MEDS ORDERED: PROPOFOL 10 MG/ML 20 ML VIAL IV ONE (01:03)
--- NOTE | 2021-06-07 01:14 | XR ---
EXAMINATION TYPE: XR knee limited RT DATE OF EXAM: 06/07/2021 COMPARISON: NONE HISTORY: Knee pain. Fall. TECHNIQUE: 2 views FINDINGS: There is moderate narrowing of the medial joint space. There is spurring of the femoral and tibial condyles. There is a knee joint effusion. There is spurring of the patella. IMPRESSION: Moderate osteoarthritis that is worse in the medial joint space. No fracture. Knee joint effusion.
[2021-06-07 01:37] VITALS: PULSE 65
--- NOTE | 2021-06-07 02:19 | XR ---
EXAMINATION TYPE: XR shoulder limited LT DATE OF EXAM: 06/07/2021 COMPARISON: Yesterday HISTORY: Relocation TECHNIQUE: Single view FINDINGS: There is comminuted fracture of the humeral neck. There is large fragment of the humeral he ad which is anteriorly dislocated. The shaft and metaphysis of the proximal humerus is overlying the glenoid. IMPRESSION: There is fracture dislocation of the left shoulder with humeral head displaced anteriorly and improved position of the metaphysis and shaft of the humerus in relation to the glenoid compared to initial exam. There is increased separation of the humeral metaphysis from the large humeral head fragments.
[2021-06-07 03:08] VITALS: BP 160/89; TEMP 98.2
== END 2021-06-07 03:20 | disposition home or self-care (01) ==
LOC: EC 21:53
DX: S42.292A Other displaced fracture of upper end of left humerus, initial encounter for closed fracture (principal); I48.91 Unspecified atrial fibrillation; J44.9 Chronic obstructive pulmonary disease, unspecified; K21.9 Gastro-esophageal reflux disease without esophagitis; E78.5 Hyperlipidemia, unspecified; I10 Essential (primary) hypertension; M19.90 Unspecified osteoarthritis, unspecified site; E07.9 Disorder of thyroid, unspecified; F32.9 Major depressive disorder, single episode, unspecified; Z79.01 Long term (current) use of anticoagulants; Z88.0 Allergy status to penicillin; Z88.1 Allergy status to other antibiotic agents; Z88.2 Allergy status to sulfonamides; Z88.5 Allergy status to narcotic agent; W01.10XA Fall on same level from slipping, tripping and stumbling with subsequent striking against unspecified object, initial encounter
CPT/HCPCS: 99285; 96374; 96361; 36415; 93005; 80053; 85025; 85610; 85730; 73020 ×2; 73060; 73560; 72125; 70450; J1170; J2704

== ENCOUNTER 2021-06-07 18:45 | Inpatient (IN) | payer MEDICARE ==
[2021-06-07] MEDS ORDERED: KETOROLAC 15 MG/ML 1 ML VIAL IVP STA (19:27)
[2021-06-07 20:01] LABS: Basophils % (A) 0 %; Eosinophils % (A) 0 %; HCT 29.9 % (34.0-46.0); Lymphocytes # (A) 1.1 k/uL (1.0-4.8); Lymphocytes % (A) 15 %; MCH 35.5 pg (25.0-35.0); MCHC 33.4 g/dL (31.0-37.0); MCV 106.1 fL (80.0-100.0); Macrocytosis Moderate; Mean Platelet Volume 7.6; Monocytes # (A) 0.6 k/uL (0-1.0); Monocytes % (A) 9 %; Neutrophils # (A) 5.4 k/uL (1.3-7.7); Neutrophils % (A) 74 %; Platelet Count 143 k/uL (150-450); RBC 2.82 m/uL (3.80-5.40); RDW 13.5 % (11.5-15.5); WBC 7.3 k/uL (3.8-10.6)
[2021-06-07 20:09] LABS: ALT 18 U/L (4-34); AST 37 U/L (14-36); African American GFR (CKD) >90 (>60 ml/min/1.73 sqM); Albumin 3.6 g/dL (3.5-5.0); Alkaline Phosphatase 40 U/L (38-126); Anion Gap 6 mmol/L; Blood Urea Nitrogen 25 mg/dL (7-17); Carbon Dioxide 26 mmol/L (22-30); Chloride 100 mmol/L (98-107); Creatine Kinase 390 U/L (30-135); Glucose 130 mg/dL (74-99); Non-African American GFR(CKD) 83 (>60 ml/min/1.73 sqM); Potassium 4.6 mmol/L (3.5-5.1); Sodium 132 mmol/L (137-145); Total Bilirubin 1.6 mg/dL (0.2-1.3); Total Protein 6.1 g/dL (6.3-8.2)
[2021-06-07 20:27] LABS: INR 1.3 (<1.2); Partial Thromboplastin Time 23.2 sec (22.0-30.0); Prothrombin Time 13.1 sec (9.0-12.0)
[2021-06-07] MEDS ORDERED: MORPHINE SULFATE 4 MG/ML SYRINGE IVP STA (20:49)
[2021-06-07] MEDS ORDERED: NALOXONE 0.4 MG/ML 1 ML VIAL IV PRN (22:10)
[2021-06-07] MEDS ORDERED: KETOROLAC 15 MG/ML 1 ML VIAL IVP PRN (22:10)
--- NOTE | 2021-06-07 22:10 | ED ---
General Adult HPI - General Chief complaint: Weakness Stated complaint: revisit - weakness Time Seen by Provider: 06/07/21 19:00 Source: patient Mode of arrival: EMS Limitations: physical limitation - History of Present Illness Initial comments: 76-year-old female presents to the emergency department for weakness. Patient was seen in the emergency department yesterday after she sustained a fall and had a left humeral fracture. It was recommended that the patient hospitalized however she was adamant that she wanted to go home. Patient reports her son took her home last night. She laid on the couch and was unable to get up all day long. States that she has not anything since before her fall. She has not taken anything for pain. She is unable to toilet herself or cooked food. Son came over the house later this evening and found the patient in the same position she was in yesterday. Because of this EMS was called to bring the patient back to the emergency room. She denies any new aches or pains. Just has continued pain in the left shoulder. No new falls. No other alleviating, precipitating or modifying factors - Related Data Home Medications Medication Instructions Recorded Confirmed Metoprolol Tartrate [Lopressor] 100 mg PO BID 09/03/14 06/07/21 Nitroglycerin [Nitrostat] 0.4 mg PO Q5M PRN 09/03/14 06/07/21 Levothyroxine Sodium [Synthroid] 112 mcg PO DAILY 09/27/18 06/07/21 Losartan Potassium [Cozaar] 100 mg PO DAILY 10/10/18 06/07/21 Warfarin [Coumadin] 5 mg PO DIRECTED 10/10/18 06/07/21 Acetaminophen Tab [Tylenol Tab] 1,000 mg PO Q4H PRN 06/07/21 06/07/21 Albuterol Inhaler [Ventolin Hfa 1 puff INHALATION RT-Q4H PRN 06/07/21 06/07/21 Inhaler] Budesonide [Pulmicort] 0.5 mg INHALATION RT-BID 06/07/21 06/07/21 Cholecalciferol (Vitamin D3) 125 mcg PO DAILY 06/07/21 06/07/21 [Vitamin D3 (125 MCG = 5,000 IU)] Citalopram Hydrobromide [CeleXA] 40 mg PO DAILY 06/07/21 06/07/21 Dicyclomine [Bentyl] 10 mg PO BID 06/07/21 06/07/[address] [Flonase 2 spray EA NOSTRIL DAILY 06/07/21 06/07/[address]] Meclizine [Antivert] 12.5 mg PO TID 06/07/21 06/07/21 Melatonin 20 mg PO HS 06/07/21 06/07/21 Montelukast [Singulair] 10 mg PO DAILY 06/07/21 06/07/21 Primidone [Mysoline] 50 mg PO DAILY 06/07/21 06/07/21 Warfarin [Coumadin] 1 mg PO DIRECTED 06/07/21 06/07/21 Xolair Unknown Dose 1 dose SQ Q28D 06/07/21 06/07/21 Allergies Allergy/AdvReac Type Severity Reaction Status Date / Time erythromycin base Allergy Unknown Verified 06/07/21 21:26 [From E-Mycin] Penicillins Allergy Unknown Verified 06/07/21 21:26 Sulfa (Sulfonamide Allergy Unknown Verified 06/07/21 21:26 Antibiotics) adhesive AdvReac BRUISES, Verified 06/07/21 21:26 ITCHING hydrocodone AdvReac AVOIDS Verified 06/07/21 21:26 NARCOTICS D/T PERSONAL REASONS NITRO PATCHES AdvReac HEADACHES Uncoded 06/07/21 19:06 Review of Systems ROS Statement: Those systems with pertinent positive or pertinent negative responses have been documented in the HPI. ROS Other: All systems not noted in ROS Statement are negative. Past Medical History Past Medical History: Atrial Fibrillation, COPD, Fibromyalgia, GERD/Reflux, GI Bleed, Hyperlipidemia, Hypertension, Osteoarthritis (OA), Skin Disorder, Sleep Apnea/CPAP/BIPAP, Thyroid Disorder Additional Past Medical History / Comment(s): 02-26-15 ADM W/GI BLEED. Dizziness, Neck Pain; ODILON but no PAP; Gastric Ulcers, Hiatal Hernia; HX Graves dx. Anemia. Complex Vertebral Subluxation; EDEMA PATRICIA LEGS/FEET. GALLBLADDER PROB 11/2014. HX OF FALLS. ITCHING OF SKIN SINCE RECENT HOSPITAL STAY. Carpal tunnel History of Any Multi-Drug Resistant Organisms: None Reported Past Surgical History: Heart Catheterization, Orthopedic Surgery Additional Past Surgical History / Comment(s): Cardioversion for afib, PATRICIA KNEE arthroscopic surgeries, Spur removal R foot. Cataract removal patricia L eyes with ocular implants. R hand cyst removal, R foot toenail removal. Injections to neck/bilateral knees. Past Anesthesia/Blood Transfusion Reactions: Previous Problems w/ Anesthesia Additional Past Anesthesia/Blood Transfusion Reaction / Comment(s): Pt states after a knee surgery 2002 she had "trouble coming out of anesthesia and was really cold." Pt states she has not recieved blood. Past Psychological History: Depression Smoking Status: Former smoker Past Alcohol Use History: Rare Past Drug Use History: None Reported - Past Family History Father Family Medical History: Coronary Artery Disease (CAD), Diabetes Mellitus, Liver Disease Additional Family Medical History / Comment(s): Father after recieving xray that damaged his liver. Mother Family Medical History: Dementia, Osteoarthritis (OA) Additional Family Medical History / Comment(s): Mother of alzhiemers at age 73yrs. General Exam Limitations: physical limitation Course Vital Signs 06/07/21 06/07/21 06/07/21 19:01 20:16 21:04 Temperature 98.2 F Pulse Rate 66 75 73 Respiratory 16 18 16 Rate Blood Pressure 154/74 182/80 168/88 O2 Sat by Pulse 97 95 98 Oximetry Medical Decision Making - Medical Decision Making Upon arrival patient was placed into room 17. I did review the patient's studies from the previous day. IV is established and the patient was given a 15 mg of Toradol as the patient is originally refusing narcotic pain medications. She is started on 75 mL of fluid per hour. Laboratory studies are conducted. Hemoglobin is 10 from a previous value of 11.7 yesterday. INR subtherapeutic at 1.9. Sodium 132. CK 390. Patient is reevaluated and continues to have pain. She does agree to take morphine at this time. Patient is fed. Called and spoke with Dr. Goyal who agreed to admit the patient with medicine to consult. [facility] placed on consult. Patient remained in stable condition awaiting a bed - Lab Data Result diagrams: 06/07/21 19:50 06/07/21 19:50 Lab Results 06/07/21 06/07/21 06/07/21 Range/Units 19:50 19:50 19:50 WBC 7.3 (3.8-10.6) k/uL RBC 2.82 L (3.80-5.40) m/uL Hgb 10.0 L D (11.4-16.0) gm/dL Hct 29.9 L (34.0-46.0) % MCV 106.1 H (80.0-100.0) fL MCH 35.5 H (25.0-35.0) pg MCHC 33.4 (31.0-37.0) g/dL RDW 13.5 (11.5-15.5) % Plt Count 143 L (150-450) k/uL MPV 7.6 Neutrophils % 74 % Lymphocytes % 15 % Monocytes % 9 % Eosinophils % 0 % Basophils % 0 % Neutrophils # 5.4 (1.3-7.7) k/uL Lymphocytes # 1.1 (1.0-4.8) k/uL Monocytes # 0.6 (0-1.0) k/uL Eosinophils # 0.0 (0-0.7) k/uL Basophils # 0.0 (0-0.2) k/uL Macrocytosis Moderate PT 13.1 H (9.0-12.0) sec INR 1.3 H (<1.2) APTT 23.2 (22.0-30.0) sec Sodium 132 L (137-145) mmol/L Potassium 4.6 (3.5-5.1) mmol/L Chloride 100 (98-107) mmol/L Carbon Dioxide 26 (22-30) mmol/L Anion Gap 6 mmol/L BUN 25 H (7-17) mg/dL Creatinine 0.71 (0.52-1.04) mg/dL Est GFR (CKD-EPI)AfAm >90 (>60 ml/min/1.73 sqM) Est GFR (CKD-EPI)NonAf 83 (>60 ml/min/1.73 sqM) Glucose 130 H (74-99) mg/dL Plasma Lactic Acid Walter (0.7-2.0) mmol/L Calcium 9.0 (8.4-10.2) mg/dL Total Bilirubin 1.6 H (0.2-1.3) mg/dL AST 37 H (14-36) U/L ALT 18 (4-34) U/L Alkaline Phosphatase 40 (38-126) U/L Creatine Kinase 390 H (30-135) U/L Troponin I (0.000-0.034) ng/mL Total Protein 6.1 L (6.3-8.2) g/dL Albumin 3.6 (3.5-5.0) g/dL 06/07/21 06/07/21 Range/Units 19:50 19:50 WBC (3.8-10.6) k/uL RBC (3.80-5.40) m/uL Hgb (11.4-16.0) gm/dL Hct (34.0-46.0) % MCV (80.0-100.0) fL MCH (25.0-35.0) pg MCHC (31.0-37.0) g/dL RDW (11.5-15.5) % Plt Count (150-450) k/uL MPV Neutrophils % % Lymphocytes % % Monocytes % % Eosinophils % % Basophils % % Neutrophils # (1.3-7.7) k/uL Lymphocytes # (1.0-4.8) k/uL Monocytes # (0-1.0) k/uL Eosinophils # (0-0.7) k/uL Basophils # (0-0.2) k/uL Macrocytosis PT (9.0-12.0) sec INR (<1.2) APTT (22.0-30.0) sec Sodium (137-145) mmol/L Potassium (3.5-5.1) mmol/L Chloride (98-107) mmol/L Carbon Dioxide (22-30) mmol/L Anion Gap mmol/L BUN (7-17) mg/dL Creatinine (0.52-1.04) mg/dL Est GFR (CKD-EPI)AfAm (>60 ml/min/1.73 sqM) Est GFR (CKD-EPI)NonAf (>60 ml/min/1.73 sqM) Glucose (74-99) mg/dL Plasma Lactic Acid Walter 2.0 (0.7-2.0) mmol/L Calcium (8.4-10.2) mg/dL Total Bilirubin (0.2-1.3) mg/dL AST (14-36) U/L ALT (4-34) U/L Alkaline Phosphatase (38-126) U/L Creatine Kinase (30-135) U/L Troponin I 0.026 (0.000-0.034) ng/mL Total Protein (6.3-8.2) g/dL Albumin (3.5-5.0) g/dL Disposition Clinical Impression: Fracture of head of left humerus, Dislocation of left shoulder joint, Generalized weakness, Multiple falls Disposition: ADMITTED IP TO THIS [facility] Condition: Stable Is patient prescribed a controlled substance at d/c from ED?: No Decision to Admit Reason: Admit from EC Decision Date: 06/07/21 Decision Time: 22:10
[2021-06-07] MEDS: SODIUM CHLORIDE 0.9% 1,000 ML IV SCH (22:56)
[2021-06-08 06:50] LABS: African American GFR (CKD) >90 (>60 ml/min/1.73 sqM); Anion Gap 6 mmol/L; Blood Urea Nitrogen 28 mg/dL (7-17); Calcium 8.8 mg/dL (8.4-10.2); Carbon Dioxide 27 mmol/L (22-30); Chloride 101 mmol/L (98-107); Glucose 136 mg/dL (74-99); Non-African American GFR(CKD) 79 (>60 ml/min/1.73 sqM); Potassium 4.2 mmol/L (3.5-5.1); Sodium 134 mmol/L (137-145)
[2021-06-08 07:03] LABS: Basophils % (A) 0 %; Eosinophils % (A) 1 %; Lymphocytes # (A) 1.1 k/uL (1.0-4.8); Lymphocytes % (A) 16 %; MCH 35.2 pg (25.0-35.0); MCHC 33.3 g/dL (31.0-37.0); MCV 105.7 fL (80.0-100.0); Macrocytosis Moderate; Monocytes # (A) 0.6 k/uL (0-1.0); Monocytes % (A) 10 %; Neutrophils # (A) 4.7 k/uL (1.3-7.7); Neutrophils % (A) 71 %; Platelet Count 125 k/uL (150-450); RBC 2.84 m/uL (3.80-5.40); RDW 13.3 % (11.5-15.5); WBC 6.7 k/uL (3.8-10.6)
[2021-06-08] MEDS: ALBUTEROL NEBULIZED 2.5 MG/3 ML INHALATION PRN ×2 (07:12→19:34)
[2021-06-08] MEDS: BUDESONIDE 0.5 MG/2 ML NEBU INHALATION SCH ×2 (07:12→19:34)
[2021-06-08 07:35] LABS: Amorphous Sediment,Urine Rare /hpf; Appearance,Urine Clear (Clear); Bacteria,Urine Occasional /hpf; Bilirubin,Urine Negative (Negative); Blood,Urine Negative (Negative); Color,Urine Yellow; Glucose,Urine (UA) Negative (Negative); Ketones,Urine Negative (Negative); Leukocyte Esterase,Urine Negative (Negative); Nitrite,Urine Negative (Negative); Protein,Urine 1+ (Negative); RBC,Urine 1 /hpf (0-5); Squamous Epithelial Cell,Urine 1 /hpf (0-4); WBC,Urine 1 /hpf (0-5)
[2021-06-08] MEDS: CITALOPRAM HYDROBROMIDE 20 MG TAB PO SCH (08:11)
[2021-06-08] MEDS: LOSARTAN 50 MG TAB PO SCH (08:12)
[2021-06-08] MEDS: CHOLECALCIFEROL 25 MCG (1000 IU) TABLET PO SCH (08:12)
[2021-06-08] MEDS: ACETAMINOPHEN TAB 500 MG TAB PO PRN ×2 (08:12→15:20)
[2021-06-08] MEDS: MONTELUKAST 10 MG TAB PO SCH (08:13)
[2021-06-08] MEDS: METOPROLOL TARTRATE 50 MG TAB PO SCH ×2 (08:14→20:31)
[2021-06-08] MEDS: PRIMIDONE 50 MG TAB PO SCH (08:14)
[2021-06-08] MEDS: LEVOTHYROXINE 112 MCG TAB PO SCH (08:14)
[2021-06-08] MEDS: FLUTICASONE 50MCG/SPRAY NASAL 16GM EA NOSTRIL SCH (08:15)
[2021-06-08 08:23] LABS: Specific Gravity,Urine 1.049 (1.001-1.035)
--- NOTE | 2021-06-08 11:32 | P.CNOR ---
<Angie Reyes - Last Filed: 06/08/21 11:27> History of Present Illness - [facility] Consult date: 06/08/21 Consult reason: fracture (Left proximal humerus fracture) History of present illness: 76-year-old female presents to the emergency department for weakness. Patient was seen in the emergency department on Wednesday after she sustained a couple of f alls and had a left humeral fracture. It was recommended that the patient hospitalized however she was adamant that she wanted to go home. Patient reports her son took her home that night. She laid on the couch and was unable to get up all day long. States that she has not anything since before her fall. She has not taken anything for pain. She is unable to toilet herself or cooked food. Son came over the house later this evening and found the patient in the same position she was in yesterday. Because of this EMS was called to bring the patient back to the emergency room. She denies any new aches or pains. Just has continued pain in the left shoulder. Past Medical History Past Medical History: Atrial Fibrillation, COPD, Fibromyalgia, GERD/Reflux, GI Bleed, Hyperlipidemia, Hypertension, Osteoarthritis (OA), Skin Disorder, Sleep Apnea/CPAP/BIPAP, Thyroid Disorder Additional Past Medical History / Comment(s): 02-26-15 ADM W/GI BLEED. Dizziness, Neck Pain; ODILON but no PAP; Gastric Ulcers, Hiatal Hernia; HX Graves dx. Anemia. Complex Vertebral Subluxation; EDEMA PATRICIA LEGS/FEET. GALLBLADDER PROB 11/2014. HX OF FALLS. ITCHING OF SKIN SINCE RECENT HOSPITAL STAY. Carpal tunnel History of Any Multi-Drug Resistant Organisms: None Reported Past Surgical History: Heart Catheterization, Orthopedic Surgery Additional Past Surgical History / Comment(s): Cardioversion for afib, PATRICIA KNEE arthroscopic surgeries, Spur removal R foot. Cataract removal patricia L eyes with ocular implants. R hand cyst removal, R foot toenail removal. Injections to n vivienne/bilateral knees. Past Anesthesia/Blood Transfusion Reactions: Previous Problems w/ Anesthesia Additional Past Anesthesia/Blood Transfusion Reaction / Comm: Pt states after a knee surgery 2002 she had "trouble coming out of anesthesia and was really cold." Pt states she has not recieved blood. Past Psychological History: Depression Smoking Status: Former smoker Past Alcohol Use History: Rare Past Drug Use History: None Reported - Past Family History Father Family Medical History: Coronary Artery Disease (CAD), Diabetes Mellitus, Liver Disease Additional Family Medical History / Comment(s): Father after recieving xray that damaged his liver. Mother Family Medical History: Dementia, Osteoarthritis (OA) Additional Family Medical History / Comment(s): Mother of alzhiemers at age 73yrs. Medications and Allergies Home Medications Medication Instructions Recorded Confirmed Type Metoprolol Tartrate [Lopressor] 100 mg PO BID 09/03/14 06/07/21 History Nitroglycerin [Nitrostat] 0.4 mg PO Q5M PRN 09/03/14 06/07/21 History Levothyroxine Sodium [Synthroid] 112 mcg PO DAILY 09/27/18 06/07/21 History Losartan Potassium [Cozaar] 100 mg PO DAILY 10/10/18 06/07/21 History Warfarin [Coumadin] 5 mg PO DIRECTED 10/10/18 06/07/21 History Acetaminophen Tab [Tylenol Tab] 1,000 mg PO Q4H PRN 06/07/21 06/07/21 History Albuterol Inhaler [Ventolin Hfa 1 puff INHALATION RT-Q4H PRN 06/07/21 06/07/21 History Inhaler] Budesonide [Pulmicort] 0.5 mg INHALATION RT-BID 06/07/21 06/07/21 History Cholecalciferol (Vitamin D3) 125 mcg PO DAILY 06/07/21 06/07/21 History [Vitamin D3 (125 MCG = 5,000 IU)] Citalopram Hydrobromide [CeleXA] 40 mg PO DAILY 06/07/21 06/07/21 History Dicyclomine [Bentyl] 10 mg PO BID 06/07/21 06/07/21 History Fluticasone Nasal [place] [Flonase 2 spray EA NOSTRIL DAILY 06/07/21 06/07/21 History Nasal [place]] Meclizine [Antivert] 12.5 mg PO TID 06/07/21 06/07/21 History Melatonin 20 mg PO HS 06/07/21 06/07/21 History Montelukast [Singulair] 10 mg PO DAILY 06/07/21 06/07/21 History Primidone [Mysoline] 50 mg PO DAILY 06/07/21 06/07/21 History Warfarin [Coumadin] 1 mg PO DIRECTED 06/07/21 06/07/21 History Xolair Unknown Dose 1 dose SQ Q28D 06/07/21 06/07/21 History Allergies Allergy/AdvReac Type Severity Reaction Status Date / Time erythromycin base Allergy Unknown Verified 06/07/21 21:26 [From E-Mycin] Penicillins Allergy Unknown Verified 06/07/21 21:26 Sulfa (Sulfonamide Allergy Unknown Verified 06/07/21 21:26 Antibiotics) adhesive AdvReac BRUISES, Verified 06/07/21 21:26 ITCHING hydrocodone AdvReac AVOIDS Verified 06/07/21 21:26 NARCOTICS D/T PERSONAL REASONS NITRO PATCHES AdvReac HEADACHES Uncoded 06/07/21 19:06 Physical Examination This is a pleasant 76-year-old female in no acute distress. She is alert and oriented at this time. Exam of the head and neck is unremarkable. No evidence motion of the cervical spine noted. Exam of the upper extremities reveals swelling and ecchymosis to the left shoulder and upper arm. She is in a sling. Range of motion of the shoulder is not tested today. Neurovascular status the upper extremities is intact. Exam of the lower extremities is unremarkable. No obvious deformity or neurologic deficit. Results X-rays of the left shoulder reveal a dislocated humeral head/neck fracture with complete inferior dislocation of the articular surface. Displacement at the humeral neck. No other fractures identified. - Labs Labs: Abnormal Lab Results - Last 24 Hours (Table) 06/07/21 06/07/21 06/07/21 Range/Units 07:06 19:50 19:50 RBC 2.82 L (3.80-5.40) m/uL Hgb 10.0 L D (11.4-16.0) gm/dL Hct 29.9 L (34.0-46.0) % MCV 106.1 H (80.0-100.0) fL MCH 35.5 H (25.0-35.0) pg Plt Count 143 L (150-450) k/uL PT (9.0-12.0) sec INR (<1.2) Sodium 132 L (137-145) mmol/L BUN 25 H (7-17) mg/dL Glucose 130 H (74-99) mg/dL Total Bilirubin 1.6 H (0.2-1.3) mg/dL AST 37 H (14-36) U/L Creatine Kinase 390 H (30-135) U/L Total Protein 6.1 L (6.3-8.2) g/dL Ur Specific [place] 1.049 H (1.001-1.035) Urine Protein 1+ H (Negative) Amorphous Sediment Rare H (None) /hpf Urine Bacteria Occasional H (None) /hpf 06/07/21 06/08/21 06/08/21 Range/Units 19:50 06:08 06:08 RBC 2.84 L (3.80-5.40) m/uL Hgb 10.0 L (11.4-16.0) gm/dL Hct 30.0 L (34.0-46.0) % MCV 105.7 H (80.0-100.0) fL MCH 35.2 H (25.0-35.0) pg Plt Count 125 L (150-450) k/uL PT 13.1 H (9.0-12.0) sec INR 1.3 H (<1.2) Sodium 134 L (137-145) mmol/L BUN 28 H (7-17) mg/dL Glucose 136 H (74-99) mg/dL Total Bilirubin (0.2-1.3) mg/dL AST (14-36) U/L Creatine Kinase (30-135) U/L Total Protein (6.3-8.2) g/dL Ur Specific [place] (1.001-1.035) Urine Protein (Negative) Amorphous Sediment (None) /hpf Urine Bacteria (None) /hpf H & H 06/07/21 06/08/21 Range/Units 19:50 06:08 Hgb 10.0 L D 10.0 L (11.4-16.0) gm/dL Hct 29.9 L 30.0 L (34.0-46.0) % Coagulation 06/07/21 Range/Units 19:50 INR 1.3 H (<1.2) Result Diagrams: 06/08/21 06:08 06/08/21 06:08 Assessment and Plan (1) Dislocation of left shoulder joint Current Visit: Yes Status: Acute Code(s): S43.005A - UNSPECIFIED DISLOCATION OF LEFT SHOULDER JOINT, INIT ENCNTR SNOMED Code(s): 132292889 (2) Fracture of head of left humerus Current Visit: Yes Status: Acute Code(s): S42.292A - OTH DISP FX OF UPPER END OF LEFT HUMERUS, INIT FOR CLOS FX SNOMED Code(s): 706388186 (3) Generalized weakness Current Visit: Yes Status: Acute Code(s): R53.1 - WEAKNESS SNOMED Code(s): 63903051 (4) Multiple falls Current Visit: Yes Status: Acute Code(s): R29.6 - REPEATED FALLS SNOMED Code(s): 284243477 Plan: The clinical and x-ray findings are discussed with the patient. The patient is evaluated by Dr. Goyal as well. Treatment options are discussed including surgical versus conservative management. It is recommended she undergo reverse total shoulder. The procedure is discussed in detail including the possible risks and outcomes of surgery. She will require presurgical evaluation and clearance by internal medicine. She may require inpatient rehab placement postoperatively. <Pushpa Goyal - Last Filed: 06/08/21 12:03> Physical Examination Osteopathic Statement: *. No significant issues noted on an osteopathic structural exam other than those noted in the History and Physical/Consult. Results - Labs Labs: Abnormal Lab Results - Last 24 Hours (Table) 06/07/21 06/07/21 06/07/21 Range/Units 07:06 19:50 19:50 RBC 2.82 L (3.80-5.40) m/uL Hgb 10.0 L D (11.4-16.0) gm/dL Hct 29.9 L (34.0-46.0) % MCV 106.1 H (80.0-100.0) fL MCH 35.5 H (25.0-35.0) pg Plt Count 143 L (150-450) k/uL PT (9.0-12.0) sec INR (<1.2) Sodium 132 L (137-145) mmol/L BUN 25 H (7-17) mg/dL Glucose 130 H (74-99) mg/dL Total Bilirubin 1.6 H (0.2-1.3) mg/dL AST 37 H (14-36) U/L Creatine Kinase 390 H (30-135) U/L Total Protein 6.1 L (6.3-8.2) g/dL Ur Specific [place] 1.049 H (1.001-1.035) Urine Protein 1+ H (Negative) Amorphous Sediment Rare H (None) /hpf Urine Bacteria Occasional H (None) /hpf 06/07/21 06/08/21 06/08/21 Range/Units 19:50 06:08 06:08 RBC 2.84 L (3.80-5.40) m/uL Hgb 10.0 L (11.4-16.0) gm/dL Hct 30.0 L (34.0-46.0) % MCV 105.7 H (80.0-100.0) fL MCH 35.2 H (25.0-35.0) pg Plt Count 125 L (150-450) k/uL PT 13.1 H (9.0-12.0) sec INR 1.3 H (<1.2) Sodium 134 L (137-145) mmol/L BUN 28 H (7-17) mg/dL Glucose 136 H (74-99) mg/dL Total Bilirubin (0.2-1.3) mg/dL AST (14-36) U/L Creatine Kinase (30-135) U/L Total Protein (6.3-8.2) g/dL Ur Specific [place] (1.001-1.035) Urine Protein (Negative) Amorphous Sediment (None) /hpf Urine Bacteria (None) /hpf H & H 06/07/21 06/08/21 Range/Units 19:50 06:08 Hgb 10.0 L D 10.0 L (11.4-16.0) gm/dL Hct 29.9 L 30.0 L (34.0-46.0) % Coagulation 06/07/21 Range/Units 19:50 INR 1.3 H (<1.2) Result Diagrams: 06/08/21 06:08 06/08/21 06:08 Assessment and Plan Plan: Patient seen and examined with Da is a 76-year-old female who had several falls resulting in a left proximal humerus fracture dislocation. She originally thought that she would be able to see us as an outpatient and left from the ER Wednesday but was unable to get around at home in an ambulance was called to bring her back. Denies any numbness and tingling in the hand. PMH, PSH, Allergies, ROS reviewed in note above Currently on Warfarin for Afib AVSS Left upper extremity exam shows cardinal hand movements are intact. AIN, ulnar, radial nerve motor 5 out of 5. Sensation is intact to light touch Refill is brisk There is bruising to the left shoulder X-ray of the left shoulder- there are 2 x-rays showing a humeral head dislocation and proximal humerus fracture. The humeral head seems to be trapped inferior to the glenoid. Patient has a left proximal humerus fracture dislocation and is neurovascularly intact. Given her age and osteoporosis this is best treated with a reverse total shoulder replacement. To help us plan we will order a CT with 3-D reconstruction. Current INR is 1.3 we will hold warfarin for now. Recent consult for medical clearance. Treatment options, risks and benefits were discussed with the patient and she elects to proceed with surgical intervention. Plan for surgery tomorrow. Pushpa Goyal, DO
--- NOTE | 2021-06-08 12:41 | CT ---
EXAMINATION TYPE: CT shoulder LT wo con DATE OF EXAM: 06/08/2021 COMPARISON: None HISTORY: pre surgical planning CT DLP: 543.[address] of the Left shoulder with reconstruction imaging. TECHNIQUE: Unenhanced CT of the left shoulder was performed with bone and soft tissue window settings submitted in the axial coronal and sagittal planes. At a separate workstation [id number] TR imaging was ob tained. FINDINGS: There is a markedly comminuted fracture of the left humeral head with large humeral head fr acture component displaced medially measuring 3.1 x 4 cm. Displacement of approximately 2 cm. Fractur e extends to the humeral neck. Extensive soft tissue edema and hemarthrosis. IMPRESSION: 1. Proximal humeral fracture as described.
--- NOTE | 2021-06-08 20:13 | P.CONS ---
History of Present Illness - Reason for Consult Consult date: 06/08/21 Medical clearance for surgery - Chief Complaint Fall/injury - History of Present Illness 76-year-old female presents to the emergency department for weakness. Patient was seen in the emergency department yesterday after she sustained a fall and had a left humeral fracture. It was recommended that the patient hospitalized however she was adamant that she wanted to go home. Patient reports her son took her home last night. She laid on the couch and was unable to get up all day long. States that she has not anything since before her fall. She has not taken anything for pain. She is unable to toilet herself or cooked food. Son came over the house later this evening and found the patient in the same position she was in yesterday. Because of this EMS was called to bring the patient back to the emergency room. She denies any new aches or pains. Just has continued pain in the left shoulder. No new falls. No other alleviating, precipitating or modifying factors Blood work in ED reveals a WBC of 7.3, hemoglobin 10, hematocrit 29.9 and platelet count of 143, sodium 132, potassium 4.6, BUN/creatinine of 25/0.7 Radiology studies reveal fracture of left humeral head and left shoulder joint dislocation Review of Systems REVIEW OF SYSTEMS: CONSTITUTIONAL: Falls. HEENT: No recent visual problems or hearing problems. Denied any sore throat. CARDIOVASCULAR: No chest pain, orthopnea, PND, no palpitations, no syncope. PULMONARY: No shortness of breath, no cough, no hemoptysis. GASTROINTESTINAL: No diarrhea, no nausea, no vomiting, no abdominal pain. NEUROLOGICAL: No headaches, no weakness, no numbness. HEMATOLOGICAL: Denies any bleeding or petechiae. GENITOURINARY: Denies any burning micturition, frequency, or urgency. MUSCULOSKELETAL/RHEUMATOLOGICAL: Denies any joint pain, swelling, or any muscle pain. ENDOCRINE: Denies any polyuria or polydipsia. The rest of the 14-point review of systems is negative. Past Medical History Past Medical History: Atrial Fibrillation, COPD, Fibromyalgia, GERD/Reflux, GI Bleed, Hyperlipidemia, Hypertension, Osteoarthritis (OA), Skin Disorder, Sleep Apnea/CPAP/BIPAP, Thyroid Disorder Additional Past Medical History / Comment(s): 02-26-15 ADM W/GI BLEED. Dizziness, Neck Pain; ODILON but no PAP; Gastric Ulcers, Hiatal Hernia; HX Graves dx. Anemia. Complex Vertebral Subluxation; EDEMA PATRICIA LEGS/FEET. GALLBLADDER PROB 11/2014. HX OF FALLS. ITCHING OF SKIN SINCE RECENT HOSPITAL STAY. Carpal tunnel History of Any Multi-Drug Resistant Organisms: None Reported Past Surgical History: Heart Catheterization, Orthopedic Surgery Additional Past Surgical History / Comment(s): Cardioversion for afib, PATRICIA KNEE arthroscopic surgeries, Spur removal R foot. Cataract removal patricia L eyes with ocular implants. R hand cyst removal, R foot toenail removal. Injections to neck/bilateral knees. Past Anesthesia/Blood Transfusion Reactions: Previous Problems w/ Anesthesia Additional Past Anesthesia/Blood Transfusion Reaction / Comm: Pt states after a knee surgery 2002 she had "trouble coming out of anesthesia and was really cold." Pt states she has not recieved blood. Past Psychological History: Depression Smoking Status: Former smoker Past Alcohol Use History: Rare Past Drug Use History: None Reported - Past Family History Father Family Medical History: Coronary Artery Disease (CAD), Diabetes Mellitus, Liver Disease Additional Family Medical History / Comment(s): Father after recieving xray that damaged his liver. Mother Family Medical History: Dementia, Osteoarthritis (OA) Additional Family Medical History / Comment(s): Mother of alzhiemers at age 73yrs. Medications and Allergies Home Medications Medication Instructions Recorded Confirmed Type Metoprolol Tartrate [Lopressor] 100 mg PO BID 09/03/14 06/07/21 History Nitroglycerin [Nitrostat] 0.4 mg PO Q5M PRN 09/03/14 06/07/21 History Levothyroxine Sodium [Synthroid] 112 mcg PO DAILY 09/27/18 06/07/21 History Losartan Potassium [Cozaar] 100 mg PO DAILY 10/10/18 06/07/21 History Warfarin [Coumadin] 5 mg PO DIRECTED 10/10/18 06/07/21 History Acetaminophen Tab [Tylenol Tab] 1,000 mg PO Q4H PRN 06/07/21 06/07/21 History Albuterol Inhaler [Ventolin Hfa 1 puff INHALATION RT-Q4H PRN 06/07/21 06/07/21 History Inhaler] Budesonide [Pulmicort] 0.5 mg INHALATION RT-BID 06/07/21 06/07/21 History Cholecalciferol (Vitamin D3) 125 mcg PO DAILY 06/07/21 06/07/21 History [Vitamin D3 (125 MCG = 5,000 IU)] Citalopram Hydrobromide [CeleXA] 40 mg PO DAILY 06/07/21 06/07/21 History Dicyclomine [Bentyl] 10 mg PO BID 06/07/21 06/07/21 History Fluticasone Nasal [place] [Flonase 2 spray EA NOSTRIL DAILY 06/07/21 06/07/21 History Nasal [place]] Meclizine [Antivert] 12.5 mg PO TID 06/07/21 06/07/21 History Melatonin 20 mg PO HS 06/07/21 06/07/21 History Montelukast [Singulair] 10 mg PO DAILY 06/07/21 06/07/21 History Primidone [Mysoline] 50 mg PO DAILY 06/07/21 06/07/21 History Warfarin [Coumadin] 1 mg PO DIRECTED 06/07/21 06/07/21 History Xolair Unknown Dose 1 dose SQ Q28D 06/07/21 06/07/21 History Allergies Allergy/AdvReac Type Severity Reaction Status Date / Time erythromycin base Allergy Unknown Verified 06/07/21 21:26 [From E-Mycin] Penicillins Allergy Unknown Verified 06/07/21 21:26 Sulfa (Sulfonamide Allergy Unknown Verified 06/07/21 21:26 Antibiotics) adhesive AdvReac BRUISES, Verified 06/07/21 21:26 ITCHING hydrocodone AdvReac AVOIDS Verified 06/07/21 21:26 NARCOTICS D/T PERSONAL REASONS NITRO PATCHES AdvReac HEADACHES Uncoded 06/07/21 19:06 Physical Exam Vitals: Vital Signs Temp Pulse Resp BP Pulse Ox 06/08/21 13:17 75 18 130/67 98 06/08/21 11:31 99.1 F 06/08/21 11:00 69 19 134/64 95 06/08/21 09:55 99.9 F H 06/08/21 09:00 80 15 139/49 95 06/08/21 08:15 89 16 139/49 98 06/08/21 07:26 82 06/08/21 07:16 80 06/08/21 07:06 99.9 F H 81 16 153/67 94 L 06/08/21 06:07 98.9 F 80 18 139/65 96 06/08/21 03:34 68 14 132/56 96 06/08/21 01:05 98.1 F 71 16 141/63 96 06/07/21 21:04 73 16 168/88 98 06/07/21 20:16 75 18 182/80 95 06/07/21 19:01 98.2 F 66 16 154/74 97 PHYSICAL EXAMINATION: GENERAL: The patient is alert and oriented x3, not in any acute distress. Well developed, well nourished. HEENT: Pupils are round and equally reacting to light. EOMI. No scleral icterus. No conjunctival pallor. Normocephalic, atraumatic. No pharyngeal erythema. No thyromegaly. CARDIOVASCULAR: S1 and S2 present. No murmurs, rubs, or gallops. PULMONARY: Chest is clear to auscultation, no wheezing or crackles. ABDOMEN: Soft, nontender, nondistended, normoactive bowel sounds. No palpable organomegaly. MUSCULOSKELETAL: No joint swelling or deformity. EXTREMITIES: Left arm in sling. NEUROLOGICAL: Gross neurological examination did not reveal any focal deficits. SKIN: No rashes. Results CBC & Chem 7: 06/08/21 06:08 06/08/21 06:08 Labs: Abnormal Lab Results - Last 24 Hours (Table) 06/07/21 06/07/21 06/07/21 Range/Units 07:06 19:50 19:50 RBC 2.82 L (3.80-5.40) m/uL Hgb 10.0 L D (11.4-16.0) gm/dL Hct 29.9 L (34.0-46.0) % MCV 106.1 H (80.0-100.0) fL MCH 35.5 H (25.0-35.0) pg Plt Count 143 L (150-450) k/uL PT (9.0-12.0) sec INR (<1.2) Sodium 132 L (137-145) mmol/L BUN 25 H (7-17) mg/dL Glucose 130 H (74-99) mg/dL Total Bilirubin 1.6 H (0.2-1.3) mg/dL AST 37 H (14-36) U/L Creatine Kinase 390 H (30-135) U/L Total Protein 6.1 L (6.3-8.2) g/dL Ur Specific [place] 1.049 H (1.001-1.035) Urine Protein 1+ H (Negative) Amorphous Sediment Rare H (None) /hpf Urine Bacteria Occasional H (None) /hpf 06/07/21 06/08/21 06/08/21 Range/Units 19:50 06:08 06:08 RBC 2.84 L (3.80-5.40) m/uL Hgb 10.0 L (11.4-16.0) gm/dL Hct 30.0 L (34.0-46.0) % MCV 105.7 H (80.0-100.0) fL MCH 35.2 H (25.0-35.0) pg Plt Count 125 L (150-450) k/uL PT 13.1 H (9.0-12.0) sec INR 1.3 H (<1.2) Sodium 134 L (137-145) mmol/L BUN 28 H (7-17) mg/dL Glucose 136 H (74-99) mg/dL Total Bilirubin (0.2-1.3) mg/dL AST (14-36) U/L Creatine Kinase (30-135) U/L Total Protein (6.3-8.2) g/dL Ur Specific [place] (1.001-1.035) Urine Protein (Negative) Amorphous Sediment (None) /hpf Urine Bacteria (None) /hpf Assessment and Plan Assessment: 1. Fall with left shoulder dislocation; orthopedic surgery consulted 2. Fracture left humeral head; patient is scheduled for or possibly tomorrow; patient is medically cleared to proceed with surgery; we will need IV heparin turned off 4 hours prior to scheduled time 3. Mild transaminitis; possibly medication induced; we will monitor liver enzymes with plan to proceed to hepatic ultrasound if continue to worsen 4. Atrial fibrillation; patient is rate controlled with metoprolol 100 mg twice a day and anticoagulated with Coumadin; INR is subtherapeutic; we will hold off on Coumadin and start patient on IV heparin while inpatient; can be turned off prior to surgery 5. Hypertension; continue with home dose of metoprolol 100 mg twice a day; losartan 100 mg daily 6. COPD/asthma; not in exacerbation; Ventolin inhaler 2 puffs 4 times a day when necessary; Pulmicort 0.5 mg 1 inhalation twice a day; Singulair 10 mg daily 7. Hypothyroidism; clinically euthyroid; continue with home dose of levothyroxine DVT prophylaxis; SCDs/IV heparin CODE STATUS; full code
[2021-06-08] MEDS ORDERED: HEPARIN SODIUM 1,000 UN/ML (10ML VL) IV PRN (20:15)
[2021-06-08] MEDS ORDERED: HEPARIN SOD,PORK IN 0.45% NACL 25,000 UNIT in 0.45% NACL 1 250ML.BAG IV SCH (20:15)
[2021-06-08] MEDS ORDERED: HEPARIN SODIUM 1,000 UN/ML (10ML VL) IV ONE (20:15)
[2021-06-08] MEDS: MORPHINE SULFATE 4 MG/ML SYRINGE IV PRN (20:16)
[2021-06-08 21:08] LABS: Basophils % (A) 0 %; Eosinophils # (A) 0.1 k/uL (0-0.7); Eosinophils % (A) 1 %; HCT 26.7 % (34.0-46.0); HGB 8.8 gm/dL (11.4-16.0); Lymphocytes # (A) 1.8 k/uL (1.0-4.8); Lymphocytes % (A) 22 %; MCH 35.5 pg (25.0-35.0); MCHC 33.1 g/dL (31.0-37.0); MCV 107.4 fL (80.0-100.0); Macrocytosis Moderate; Mean Platelet Volume 7.8; Monocytes # (A) 0.6 k/uL (0-1.0); Monocytes % (A) 8 %; Neutrophils # (A) 5.2 k/uL (1.3-7.7); Neutrophils % (A) 66 %; Platelet Count 119 k/uL (150-450); RBC 2.49 m/uL (3.80-5.40); RDW 12.7 % (11.5-15.5); WBC 7.8 k/uL (3.8-10.6)
[2021-06-08 21:44] LABS: INR 1.6 (<1.2); Prothrombin Time 15.8 sec (9.0-12.0)
[2021-06-09 04:06] LABS: Basophils % (A) 0 %; Eosinophils # (A) 0.2 k/uL (0-0.7); Eosinophils % (A) 2 %; HCT 27.5 % (34.0-46.0); Lymphocytes # (A) 1.1 k/uL (1.0-4.8); Lymphocytes % (A) 15 %; MCH 34.9 pg (25.0-35.0); MCHC 32.7 g/dL (31.0-37.0); MCV 106.6 fL (80.0-100.0); Macrocytosis Moderate; Monocytes # (A) 0.6 k/uL (0-1.0); Monocytes % (A) 8 %; Neutrophils # (A) 5.4 k/uL (1.3-7.7); Neutrophils % (A) 73 %; Platelet Count 103 k/uL (150-450); RBC 2.58 m/uL (3.80-5.40); RDW 12.8 % (11.5-15.5); WBC 7.4 k/uL (3.8-10.6)
[2021-06-09 04:32] LABS: African American GFR (CKD) >90 (>60 ml/min/1.73 sqM); Anion Gap 6 mmol/L; Blood Urea Nitrogen 27 mg/dL (7-17); Calcium 8.4 mg/dL (8.4-10.2); Carbon Dioxide 25 mmol/L (22-30); Chloride 104 mmol/L (98-107); Glucose 116 mg/dL (74-99); Non-African American GFR(CKD) 85 (>60 ml/min/1.73 sqM); Potassium 4.3 mmol/L (3.5-5.1); Sodium 135 mmol/L (137-145)
[2021-06-09] MEDS: SODIUM CHLORIDE 0.9% 1,000 ML IV SCH ×5 (05:06→15:12)
[2021-06-09] MEDS: MORPHINE SULFATE 4 MG/ML SYRINGE IV PRN ×3 (05:11→13:25)
[2021-06-09] MEDS: MONTELUKAST 10 MG TAB PO SCH (07:46)
[2021-06-09] MEDS: LEVOTHYROXINE 112 MCG TAB PO SCH (07:46)
[2021-06-09] MEDS: METOPROLOL TARTRATE 50 MG TAB PO SCH ×2 (07:46→22:48)
[2021-06-09] MEDS: LOSARTAN 50 MG TAB PO SCH (07:46)
[2021-06-09] MEDS: CHOLECALCIFEROL 25 MCG (1000 IU) TABLET PO SCH (07:46)
[2021-06-09] MEDS: FLUTICASONE 50MCG/SPRAY NASAL 16GM EA NOSTRIL SCH (07:47)
[2021-06-09] MEDS: CITALOPRAM HYDROBROMIDE 20 MG TAB PO SCH (07:48)
[2021-06-09] MEDS: PRIMIDONE 50 MG TAB PO SCH (07:49)
[2021-06-09] MEDS: BUDESONIDE 0.5 MG/2 ML NEBU INHALATION SCH ×2 (08:17→21:26)
[2021-06-09] MEDS: ALBUTEROL NEBULIZED 2.5 MG/3 ML INHALATION PRN (08:17)
[2021-06-09 09:42] LABS: INR 1.4 (<1.2); Prothrombin Time 14.1 sec (9.0-12.0)
[2021-06-09] MEDS ORDERED: ONDANSETRON 4 MG/2 ML VIAL ONE (13:52)
[2021-06-09] MEDS ORDERED: ONDANSETRON 4 MG/2 ML VIAL IVP ONE (13:55)
[2021-06-09] MEDS ORDERED: DEXAMETHASONE SOD PHOSPHATE 4 MG/ML 1 ML VIAL IVP ONE (13:55)
[2021-06-09] MEDS ORDERED: CLINDAMYCIN 600 MG in DEXTROSE 5% IN WATER 50 ML IVPB STA ×2 (15:05)
[2021-06-09] MEDS ORDERED: fentaNYL (PF) 50 MCG/ML 2 ML AMP ONE (15:12)
[2021-06-09] MEDS ORDERED: SODIUM CHLORIDE 0.9% 50 ML with ceFAZolin 2 GM IV ONE ×2 (15:12)
[2021-06-09] MEDS ORDERED: SUCCINYLCHOLINE CHLORIDE 100 MG/5 ML SYR IV ONE (15:12)
[2021-06-09] MEDS ORDERED: PHENYLEPHRINE-0.9% NACL SYG 1,000 MCG/10 ML SYRINGE ONE (15:12)
[2021-06-09] MEDS ORDERED: PROPOFOL 10 MG/ML 20 ML VIAL IV ONE (15:12)
[2021-06-09] MEDS ORDERED: ROPIVACAINE 5 MG/ML 30 ML VIAL ONE (15:12)
[2021-06-09] MEDS ORDERED: LIDOCAINE 1% INJ 10MG/ML (20 ML MDV) ONE (15:12)
--- NOTE | 2021-06-09 15:20 | P.PN ---
Subjective 76-year-old female presents to the emergency department for weakness. Patient was seen in the emergency department yesterday after she sustained a fall and had a left humeral fracture. It was recommended that the patient hospitalized however she was adamant that she wanted to go home. Patient reports her son took her home last night. She laid on the couch and was unable to get up all day long. States that she has not anything since before her fall. She has not taken anything for pain. She is unable to toilet herself or cooked food. Son came over the house later this evening and found the patient in the same position she was in yesterday. Because of this EMS was called to bring the patient back to the emergency room. She denies any new aches or pains. Just has continued pain in the left shoulder. No new falls. No other alleviating, precipitating or modifying factors Blood work in ED reveals a WBC of 7.3, hemoglobin 10, hematocrit 29.9 and platelet count of 143, sodium 132, potassium 4.6, BUN/creatinine of 25/0.7 Radiology studies reveal fracture of left humeral head and left shoulder joint dislocation 06/09/2021 Patient doesn't have any symptoms and overnight events patient most probably will undergo left shoulder arthroplasty today. Patient's INR is 1.4 patient can be operated with that INR. Patient will not require bridging with heparin as her chads score is less than 5. Constitutional: Denied any fatigue denied any fever. Cardio vascular: denied any chest pain, palpitations Gastrointestinal denied any nausea vomiting Pulmonary: Denied any shortness of breath cough Neurologic denied any new focal deficits All inpatient medications were reviewed and appropriate changes in these medications as dictated in the interval history and assessment and plan. PHYSICAL EXAMINATION: GENERAL: The patient is alert and oriented x3, not in any acute distress. Well developed, well nourished. HEENT: Pupils are round and equally reacting to light. EOMI. No scleral icterus. No conjunctival pallor. Normocephalic, atraumatic. No pharyngeal erythema. No thyromegaly. CARDIOVASCULAR: S1 and S2 present. No murmurs, rubs, or gallops. PULMONARY: Chest is clear to auscultation, no wheezing or crackles. ABDOMEN: Soft, nontender, nondistended, normoactive bowel sounds. No palpable organomegaly. MUSCULOSKELETAL: Deferred to orthopedic surgery EXTREMITIES: No cyanosis, clubbing, or pedal edema. NEUROLOGICAL: Gross neurological examination did not reveal any focal deficits. SKIN: No rashes. Assessment and plan -Left shoulder dislocation and fracture: Patient will undergo left shoulder arthroplasty today -Paroxysmal A. fib and correlated on Coumadin will not require bridging since her chads score is less than 5 -Mild nonspecific transaminitis no further intervention at this time -Hypertension -COPD without acute exacerbation -Hypothyroidism Objective - Vital Signs Vital signs: Vital Signs Temp 98.3 F 06/09/21 15:03 Pulse 77 06/09/21 15:03 Resp 16 06/09/21 15:03 BP 152/74 06/09/21 15:03 Pulse Ox 99 06/09/21 15:03 Intake & Output 06/08/21 06/09/21 06/09/21 18:59 06:59 18:59 Intake Total 935 Balance 935 Weight 81.647 kg Intake: IV 300 Blood Product 635 Ffp 24 Cpd Unit 317 [id number] Ffp 24 Cpd Unit 318 [id number] Other: Voiding Method Diaper External Catheter - Labs CBC & Chem 7: 06/09/21 03:53 06/09/21 03:53 Labs: Abnormal Lab Results - Last 24 Hours (Table) 06/08/21 06/08/21 06/09/21 Range/Units 20:41 20:41 03:53 RBC 2.49 L 2.58 L (3.80-5.40) m/uL Hgb 8.8 L 9.0 L (11.4-16.0) gm/dL Hct 26.7 L 27.5 L (34.0-46.0) % MCV 107.4 H 106.6 H (80.0-100.0) fL MCH 35.5 H (25.0-35.0) pg Plt Count 119 L 103 L (150-450) k/uL PT 15.8 H (9.0-12.0) sec INR 1.6 H (<1.2) Sodium (137-145) mmol/L BUN (7-17) mg/dL Glucose (74-99) mg/dL Crossmatch 06/09/21 06/09/21 06/09/21 Range/Units 03:53 09:13 12:42 RBC (3.80-5.40) m/uL Hgb (11.4-16.0) gm/dL Hct (34.0-46.0) % MCV (80.0-100.0) fL MCH (25.0-35.0) pg Plt Count (150-450) k/uL PT 14.1 H (9.0-12.0) sec INR 1.4 H (<1.2) Sodium 135 L (137-145) mmol/L BUN 27 H (7-17) mg/dL Glucose 116 H (74-99) mg/dL Crossmatch See Detail
--- NOTE | 2021-06-09 15:33 | P.ANPRN ---
Procedure Note - Anesthesia - Nerve Block Performed Left Interscalene Single Time Out Performed: Yes ([id number]) Date of Procedure: 06/09/21 Procedure Start Time: 13:53 Procedure Stop Time: 14:00 Location of Patient: PreOp Indication: Acute Post-Operative Pain, Requested by Surgeon Specifically requested for management of pain by DrJimmy: Pushpa Goyal Sedation Type: Sedate with meaningful contact maintained Preparation: Sterile Prep Position: Sitting Catheter: None Needle Types: Pajunk Needle Gauge: 21 Ultrasound used to visualize needle placement: Yes Ultrasound used to observe medication spread: Yes Injectate: 0.5% Ropivacaine (see comment for volume) (30cc) Blood Aspirated: No Pain Paresthesia on Injection Noted: No Resistance on Injection: Normal Image Stored and Saved: Yes Events: Uneventful and Well Tolerated
[2021-06-09] MEDS ORDERED: LACTATED RINGERS 1,000 ML IV ONE (17:25)
[2021-06-09] MEDS ORDERED: ONDANSETRON 4 MG/2 ML VIAL IVP PRN (17:48)
[2021-06-09] MEDS ORDERED: SENNOSIDES-DOCUSATE SODIUM 1 EACH TAB PO PRN (17:48)
--- NOTE | 2021-06-09 18:12 | XR ---
EXAMINATION TYPE: XR shoulder limited LT DATE OF EXAM: 06/09/2021 COMPARISON: None HISTORY: Shoulder surgery TECHNIQUE: 3 views FINDINGS: 3 fluoroscopic images were obtained at show left shoulder prosthesis. Components appear in anatomic position. There was one second of fluoroscopy time recorded for the surgery. IMPRESSION: Left shoulder prosthesis with no complicating process.
--- NOTE | 2021-06-09 18:53 | P.OP ---
Date of Procedure: 06/09/21 Preoperative Diagnosis: Left proximal humerus fracture dislocation Postoperative Diagnosis: Name Procedure(s) Performed: Left reverse total shoulder arthroplasty Implants: Biomet comprehensive reverse total shoulder system Fracture stem 12 mm x 122 mm 36 mm glenoid sphere Anesthesia: regional Surgeon: Pushpa Goyal Vp Genetic #1: Kalani Cadena Condition: stable Disposition: PACU Indications for Procedure: Patient sustained a fall which resulted in a left proximal humerus fracture dislocation. Description of Procedure: Patient, operative extremity, and procedure were identified in the preop holding area. After informed consent was obtained the patient received a general block by the anesthesia team. She was then brought back to the operating room where she was placed under anesthesia. She was then positioned on the operating table in a beachchair position. The left upper extremity was then prepped and draped in normal sterile fashion. Formal timeout was performed again confirming the patient's identity, operative extremity, and procedure. Incision was made in line with the coracoid to the lateral aspect of the humerus. This was carried down to the deltopectoral interview of ball and the cephalic vein was mobilized laterally. Dissection was carried down to the clavipectoral fascia which was split lateral to the conjoined tendon. The fracture fragments and rotator cuff were then identified. Hematoma was evacuated. Subscapularis tendon was found to be avulsed off of the lesser trochanter. The supraspinatus was still attached to the greater tuberosity. Biceps tenodesis was performed with 0 Vicryl. The rotator cuff interval and subacromial space was freed up and the supraspinatus and greater tuberosity and the subscapularis tendon were secured with #5 FiberWire. Attention was then turned to find the humeral head piece. This was located inferior to the glenoid and carefully drawn out of the wound. Exposure of the glenoid was achieved. Following the biceps tendon to the labrum and the labrum was released carefully in 360. The baseplate guide pin was then placed position the baseplate along the inferior aspect of the glenoid. Glenoid was reamed, baseplate was malleted in place. Central screw was placed after appropriately measured. The remaining 4 locking screws were similarly placed. The baseplate was lined up nicely with the glenoid and the hemisphere with minimal offset was selected. This was then attached to the baseplate. Attention was then turned to the humeral shaft. This was lifted out of the wound and prepped with combination of reamers and broaches. It was found that a size 12 fracture stem fit the canal well. A trial of the stem and the smallest polyethylene was trialed and found to be appropriate. 3 holes were then drilled into the superior aspect of the humeral shaft and 2 #5 fiber wires were placed through the holes. The canal was then cleaned and a size 12 fracture humeral stem was then placed. Cancellus and metaphyseal bone graft was harvested from the humeral head and packed in around the stem. Trial poly-again confirmed that the thinnest polyethylene would be appropriate. The final implant was then impacted in place and reduced. Good range of motion and minimal shuck. Attention was then turned to repairing the tuberosities. Subscapularis had avulsed off the lesser tuberosity but this was secured with 2 #5 fiber wires through the supraspinatus and the holes in the humeral shaft. The greater tuberosity and the subscapularis were wrapped around the prosthesis. Reduction was confirmed on fluoroscopy. Visually the entire unit moved as a whole. The wound was then copiously irrigated. Closure was then performed with 2-0 Vicryl and 4.0 stratfix and skin glue. Aquafoam dressing was then applied over top. Patient was aroused from anesthesia and brought back to PACU in stable condition. Postoperatively we'll limit her internal and external rotation passive range of motion is okay for now.
[2021-06-09] MEDS: LACTATED RINGERS 1,000 ML IV SCH (22:50)
[2021-06-10] MEDS: SODIUM CHLORIDE 0.9% 1,000 ML IV SCH ×2 (04:04→15:47)
[2021-06-10] MEDS: MORPHINE SULFATE 4 MG/ML SYRINGE IV PRN (04:30)
[2021-06-10] MEDS: LEVOTHYROXINE 112 MCG TAB PO SCH (05:48)
--- NOTE | 2021-06-10 08:27 | FL ---
Fluoroscopy HISTORY: Shoulder arthroplasty 1 seconds fluoroscopy time supplied to the referring clinician. 2 intraoperative C-arm images docume nt the procedure. See dictated report from orthopedic surgery.
[2021-06-10] MEDS: BUDESONIDE 0.5 MG/2 ML NEBU INHALATION SCH ×2 (08:38→21:59)
[2021-06-10] MEDS: CHOLECALCIFEROL 25 MCG (1000 IU) TABLET PO SCH (09:24)
[2021-06-10] MEDS: METOPROLOL TARTRATE 50 MG TAB PO SCH ×2 (09:25→20:08)
[2021-06-10] MEDS: CITALOPRAM HYDROBROMIDE 20 MG TAB PO SCH (09:25)
[2021-06-10] MEDS: ACETAMINOPHEN TAB 500 MG TAB PO SCH ×3 (09:25→22:22)
[2021-06-10] MEDS: MONTELUKAST 10 MG TAB PO SCH ×2 (09:25→20:08)
[2021-06-10] MEDS: PRIMIDONE 50 MG TAB PO SCH (09:25)
[2021-06-10] MEDS: FLUTICASONE 50MCG/SPRAY NASAL 16GM EA NOSTRIL SCH (09:28)
--- NOTE | 2021-06-10 09:35 | P.PN ---
Subjective Progress Note Date: 06/10/21 Principal diagnosis: Status post left reverse total shoulder arthroplasty This is a 76 year-old female post left reverse total shoulder arthroplasty. This is post-op day 1. The patient was evaluated at the bedside today. The patient denies nausea, vomiting, abdominal pain, shortness of breath, and chest pain this morning. She states her pain is not controlled at this time. She has received one dose of Morphine early this morning and nothing PO so far. The patient has not been up with physical therapy. Her son was at the bedside today. Objective - Vital Signs Vital signs: Vital Signs Temp 98.2 F 06/10/21 01:13 Pulse 87 06/10/21 08:43 Resp 17 06/10/21 08:43 BP 164/83 06/10/21 08:43 Pulse Ox 96 06/10/21 08:43 Intake & Output 06/09/21 06/10/21 06/10/21 18:59 06:59 18:59 Intake Total 2089 600 Output Total 150 Balance 1939 600 Weight 81.647 kg 81.647 kg Intake: IV 1454 Oral 600 Blood Product 635 Ffp 24 Cpd Unit 317 [id number] Ffp 24 Cpd Unit 318 [id number] Output: Estimated Blood Loss 150 Other: Voiding Method Diaper Diaper External Catheter External Catheter # Voids 1 - Exam The patient does not appear in acute distress. Alert and orientated x3. Dressing is clean dry and intact. Upper arm and forearm are soft and minimally tender. Good wrist and hand/finger motion without difficulty. Sensation and circulatory status is intact. - Labs CBC & Chem 7: 06/10/21 10:35 06/10/21 10:35 Labs: Abnormal Lab Results - Last 24 Hours (Table) 06/09/21 06/09/21 Range/Units 09:13 12:42 PT 14.1 H (9.0-12.0) sec INR 1.4 H (<1.2) Crossmatch See Detail Assessment and Plan (1) Status post reverse arthroplasty of left shoulder Current Visit: Yes Status: Acute Code(s): Z96.612 - PRESENCE OF LEFT ARTIFICIAL SHOULDER JOINT SNOMED Code(s): 38725261834943161 (2) Fracture of head of left humerus Current Visit: Yes Status: Acute Code(s): S42.292A - OTH DISP FX OF UPPER END OF LEFT HUMERUS, INIT FOR CLOS FX SNOMED Code(s): 235566118 (3) Multiple falls Current Visit: Yes Status: Acute Code(s): R29.6 - REPEATED FALLS SNOMED Code(s): 648043526 Plan: 1. Continue pain control, we will schedule her Tylenol. Ultram and morphine as needed. 2. Anticoagulation with Coumadin. May restart her Coumadin today. 3. Start physical therapy and ambulation. Passive ROM of the shoulder is ok. No external or internal rotation at this time. 4. Anticipate discharge to skilled rehab in 1-2 days.
[2021-06-10 10:55] LABS: African American GFR (CKD) >90 (>60 ml/min/1.73 sqM); Anion Gap 7 mmol/L; Blood Urea Nitrogen 24 mg/dL (7-17); Calcium 8.2 mg/dL (8.4-10.2); Carbon Dioxide 23 mmol/L (22-30); Chloride 103 mmol/L (98-107); Glucose 175 mg/dL (74-99); Non-African American GFR(CKD) 86 (>60 ml/min/1.73 sqM); Potassium 3.8 mmol/L (3.5-5.1); Sodium 133 mmol/L (137-145)
[2021-06-10 11:02] LABS: INR 1.3 (<1.2)
[2021-06-10 11:12] LABS: Basophils % (A) 0 %; Eosinophils % (A) 0 %; HCT 22.4 % (34.0-46.0); Lymphocytes # (A) 0.9 k/uL (1.0-4.8); Lymphocytes % (A) 11 %; MCH 35.8 pg (25.0-35.0); MCHC 33.5 g/dL (31.0-37.0); MCV 106.9 fL (80.0-100.0); Macrocytosis Moderate; Mean Platelet Volume 7.8; Monocytes # (A) 0.7 k/uL (0-1.0); Monocytes % (A) 9 %; Neutrophils # (A) 5.8 k/uL (1.3-7.7); Neutrophils % (A) 77 %; Platelet Count 130 k/uL (150-450); RBC 2.09 m/uL (3.80-5.40); RDW 13.4 % (11.5-15.5); WBC 7.6 k/uL (3.8-10.6)
[2021-06-10 11:19] LABS: HGB 7.5 gm/dL (11.4-16.0)
[2021-06-10] MEDS ORDERED: [UNRECOGNIZED DRUG - OTHER] SQ SCH (11:30)
[2021-06-10] MEDS: traMADol 50 MG TAB PO PRN ×2 (12:46→18:07)
--- NOTE | 2021-06-10 14:43 | P.PN ---
Subjective Progress Note Date: 06/10/21 76-year-old female presents to the emergency department for weakness. Patient was seen in the emergency department yesterday after she sustained a fall and had a left humeral fracture. It was recommended that the patient hospitalized however she was adamant that she wanted to go home. Patient reports her son took her home last night. She laid on the couch and was unable to get up all day long. States that she has not anything since before her fall. She has not taken anything for pain. She is unable to toilet herself or cooked food. Son came over the house later this evening and found the patient in the same position she was in yesterday. Because of this EMS was called to bring the patient back to the emergency room. She denies any new aches or pains. Just has continued pain in the left shoulder. No new falls. No other alleviating, precipitating or modifying factors Blood work in ED reveals a WBC of 7.3, hemoglobin 10, hematocrit 29.9 and platelet count of 143, sodium 132, potassium 4.6, BUN/creatinine of 25/0.7 Radiology studies reveal fracture of left humeral head and left shoulder joint dislocation 06/09/2021 Patient doesn't have any symptoms and overnight events patient most probably will undergo left shoulder arthroplasty today. Patient's INR is 1.4 patient can be operated with that INR. Patient will not require bridging with heparin as her chads score is less than 5. 06/10/2021 Patient is resting in the bed with her and her son at the bedside. She is having quite a bit of pain to her left shoulder and does not like to positioned. There is some bruising noted. Orthopedics was making adjustments to be see medication. She is cleared to resume her Coumadin, we ordered an incentive spirometer. Please encourage use. Patient had a PT OT evaluation today. She is also requesting breathing treatments for a history of COPD and emphysema. She states that it feels tight to take a deep breath. She has albuterol as needed ordered. In addition patient states that she would like a soft diet due to poor dentition, this was ordered for her. Labs today include a white blood cell count 7.6, hemoglobin of 7.5, platelet count of 130. Her INR today is 1.3, sod ium level 133. Repeat labs in the morning. Patient is remained afebrile, heart rate 87 segs rhythm, blood pressure 164/83 and she is 93% on 1 liter nasal cannula. ROS Constitutional: Denied any fatigue denied any fever. Cardio vascular: denied any chest pain, palpitations Gastrointestinal denied any nausea vomiting Pulmonary: Denied any shortness of breath cough Neurologic denied any new focal deficits All inpatient medications were reviewed and appropriate changes in these medications as dictated in the interval history and assessment and plan. PHYSICAL EXAMINATION: GENERAL: The patient is alert and oriented x3, not in any acute distress. Well developed, well nourished. HEENT: Pupils are round and equally reacting to light. EOMI. No scleral icterus. No conjunctival pallor. Normocephalic, atraumatic. No pharyngeal erythema. No thyromegaly. CARDIOVASCULAR: S1 and S2 present. No murmurs, rubs, or gallops. PULMONARY: Chest is clear to auscultation, no wheezing or crackles. ABDOMEN: Soft, nontender, nondistended, normoactive bowel sounds. No palpable organomegaly. MUSCULOSKELETAL: Deferred to orthopedic surgery EXTREMITIES: No cyanosis, clubbing, or pedal edema. Cap refill fell to the left hand is <3 seconds, and left radial pulse is +2. NEUROLOGICAL: Gross neurological examination did not reveal any focal deficits. SKIN: No rashes. Assessment and plan -Left shoulder dislocation and fracture: POD #1 left shoulder arthroplasty today -Paroxysmal A. fib anticoagulated on Coumadin will not require bridging since her chads score is less than 5 -Mild nonspecific transaminitis no further intervention at this time -Hypertension -COPD without acute exacerbation -Hypothyroidism Coumadin has been resumed, encourage incentive spirometer use. Pain management from orthopedics. Repeat labs in the morning. Please ask patient if she wants her as needed albuterol as she was requesting this earlier. We will follow along closely, thank you for this consultation. Objective - Vital Signs Vital signs: Vital Signs Temp 98.2 F 06/10/21 01:13 Pulse 87 06/10/21 08:43 Resp 17 06/10/21 08:43 BP 164/83 06/10/21 08:43 Pulse Ox 93 L 06/10/21 12:16 Intake & Output 06/09/21 06/10/21 06/10/21 18:59 06:59 18:59 Intake Total 2089 600 Output Total 150 Balance 1939 600 Weight 81.647 kg 81.647 kg Intake: IV 1454 Oral 600 Blood Product 635 Ffp 24 Cpd Unit 317 [id number] Ffp 24 Cpd Unit 318 [id number] Output: Estimated Blood Loss 150 Other: Voiding Method Diaper Diaper Diaper External Catheter External Catheter Incontinent # Voids 1 - Labs CBC & Chem 7: 06/10/21 10:35 06/10/21 10:35 Labs: Abnormal Lab Results - Last 24 Hours (Table) 06/09/21 06/10/21 06/10/21 Range/Units 12:42 10:35 10:35 RBC 2.09 L (3.80-5.40) m/uL Hgb 7.5 L D (11.4-16.0) gm/dL Hct 22.4 L (34.0-46.0) % MCV 106.9 H (80.0-100.0) fL MCH 35.8 H (25.0-35.0) pg Plt Count 130 L (150-450) k/uL Lymphocytes # 0.9 L (1.0-4.8) k/uL PT 13.0 H (9.0-12.0) sec INR 1.3 H (<1.2) Sodium (137-145) mmol/L BUN (7-17) mg/dL Glucose (74-99) mg/dL Calcium (8.4-10.2) mg/dL Crossmatch See Detail 06/10/21 Range/Units 10:35 RBC (3.80-5.40) m/uL Hgb (11.4-16.0) gm/dL Hct (34.0-46.0) % MCV (80.0-100.0) fL MCH (25.0-35.0) pg Plt Count (150-450) k/uL Lymphocytes # (1.0-4.8) k/uL PT (9.0-12.0) sec INR (<1.2) Sodium 133 L (137-145) mmol/L BUN 24 H (7-17) mg/dL Glucose 175 H (74-99) mg/dL Calcium 8.2 L (8.4-10.2) mg/dL Crossmatch Assessment and Plan Time with Patient: Greater than 30
[2021-06-10] MEDS: LACTATED RINGERS 1,000 ML IV SCH (15:42)
[2021-06-10] MEDS: LOSARTAN 25 MG TAB PO SCH (15:45)
[2021-06-10] MEDS ORDERED: WARFARIN 5 MG TAB PO ONE (18:00)
[2021-06-10] MEDS: ALBUTEROL NEBULIZED 2.5 MG/3 ML INHALATION PRN (21:59)
[2021-06-11] MEDS: traMADol 50 MG TAB PO PRN ×2 (05:44→09:22)
[2021-06-11] MEDS: SODIUM CHLORIDE 0.9% 1,000 ML IV SCH ×2 (05:44→21:50)
[2021-06-11] MEDS: LEVOTHYROXINE 112 MCG TAB PO SCH (05:44)
[2021-06-11 07:27] LABS: INR 1.2 (<1.2)
[2021-06-11] MEDS: CHOLECALCIFEROL 25 MCG (1000 IU) TABLET PO SCH (07:36)
[2021-06-11] MEDS: PRIMIDONE 50 MG TAB PO SCH (07:37)
[2021-06-11] MEDS: METOPROLOL TARTRATE 50 MG TAB PO SCH ×2 (07:37→22:12)
[2021-06-11] MEDS: CITALOPRAM HYDROBROMIDE 20 MG TAB PO SCH (07:37)
[2021-06-11] MEDS: LOSARTAN 25 MG TAB PO SCH (07:37)
[2021-06-11] MEDS: ACETAMINOPHEN TAB 500 MG TAB PO SCH ×3 (07:40→22:12)
[2021-06-11] MEDS: ALBUTEROL NEBULIZED 2.5 MG/3 ML INHALATION PRN ×3 (07:42→20:30)
[2021-06-11] MEDS: BUDESONIDE 0.5 MG/2 ML NEBU INHALATION SCH ×2 (07:42→20:30)
[2021-06-11] MEDS: FLUTICASONE 50MCG/SPRAY NASAL 16GM EA NOSTRIL SCH (07:46)
[2021-06-11] MEDS: LACTATED RINGERS 1,000 ML IV SCH (07:47)
--- NOTE | 2021-06-11 08:33 | P.PN ---
Subjective Progress Note Date: 06/11/21 Principal diagnosis: Status post left reverse total shoulder arthroplasty This is a 76 year-old female post left reverse total shoulder arthroplasty. This is post-op day 2. The patient was evaluated at the bedside today. The patient denies nausea, vomiting, abdominal pain, shortness of breath, and chest pain this morning. She states her pain is not controlled at this time. She has received her Tylenol around the clock and Ultram 50 mg early this morning. The patient has not been up out of bed yet but will be getting to the chair this morning with nursing staff. She states her hand "feels ." Objective - Vital Signs Vital signs: Vital Signs Temp 98.4 F 06/11/21 07:22 Pulse 82 06/11/21 07:42 Resp 17 06/11/21 07:22 BP 152/81 06/11/21 07:22 Pulse Ox 96 06/11/21 07:42 Intake & Output 06/10/21 06/11/21 06/11/21 18:59 06:59 18:59 Output Total 110 Balance -110 Output: Urine 110 Other: Voiding Method Diaper Diaper Incontinent Incontinent External Catheter # Voids 0 # Bowel Movements 0 0 - Exam The patient does not appear in acute distress. Alert and orientated x3. Dressing is clean dry and intact. Upper arm and forearm are soft and minimally tender. Good wrist and hand/finger motion without difficulty. Sensation and circulatory status is intact. - Labs CBC & Chem 7: 06/10/21 10:35 06/10/21 10:35 Labs: Abnormal Lab Results - Last 24 Hours (Table) 06/09/21 06/10/21 06/10/21 Range/Units 12:42 10:35 10:35 RBC 2.09 L (3.80-5.40) m/uL Hgb 7.5 L D (11.4-16.0) gm/dL Hct 22.4 L (34.0-46.0) % MCV 106.9 H (80.0-100.0) fL MCH 35.8 H (25.0-35.0) pg Plt Count 130 L (150-450) k/uL Lymphocytes # 0.9 L (1.0-4.8) k/uL PT 13.0 H (9.0-12.0) sec INR 1.3 H (<1.2) Sodium (137-145) mmol/L BUN (7-17) mg/dL Glucose (74-99) mg/dL Calcium (8.4-10.2) mg/dL Crossmatch See Detail 06/10/21 06/11/21 Range/Units 10:35 06:46 RBC (3.80-5.40) m/uL Hgb (11.4-16.0) gm/dL Hct (34.0-46.0) % MCV (80.0-100.0) fL MCH (25.0-35.0) pg Plt Count (150-450) k/uL Lymphocytes # (1.0-4.8) k/uL PT (9.0-12.0) sec INR 1.2 H (<1.2) Sodium 133 L (137-145) mmol/L BUN 24 H (7-17) mg/dL Glucose 175 H (74-99) mg/dL Calcium 8.2 L (8.4-10.2) mg/dL Crossmatch Assessment and Plan (1) Status post reverse arthroplasty of left shoulder Current Visit: Yes Status: Acute Code(s): Z96.612 - PRESENCE OF LEFT ARTIFICIAL SHOULDER JOINT SNOMED Code(s): 55655858810615118 (2) Fracture of head of left humerus Current Visit: Yes Status: Acute Code(s): S42.292A - OTH DISP FX OF UPPER END OF LEFT HUMERUS, INIT FOR CLOS FX SNOMED Code(s): 796081837 (3) Multiple falls Current Visit: Yes Status: Acute Code(s): R29.6 - REPEATED FALLS SNOMED Code(s): 496159969 Plan: 1. Continue pain control with Tylenol and Ultram and morphine as needed. 2. Anticoagulation with Coumadin per protocol. 3. Continue physical therapy and ambulation. Passive ROM of the shoulder is ok. No external or internal rotation at this time. 4. Anticipate discharge to skilled rehab in 1-2 days.
[2021-06-11] MEDS ORDERED: WARFARIN 1 MG TAB PO SCH (09:00)
[2021-06-11] MEDS ORDERED: WARFARIN 5 MG TAB PO SCH (09:00)
[2021-06-11 09:22] LABS: MCH 34.8 pg (27.0-32.0); MCHC 31.8 g/dL (32.0-37.0); MCV 109.5 fL (80.0-97.0); Mean Platelet Volume 10.6 fL (9.5-12.2); Platelet Count 141 X 10*3/uL (140-440); RBC 2.01 X 10*6/uL (4.10-5.20); RDW 13.6 % (11.5-14.5); WBC 8.26 X 10*3/uL (4.50-10.00)
[2021-06-11 09:43] LABS: African American GFR (CKD) 101.9 (60.0-200.0); Anion Gap 9.3 mmol/L (4.00-12.00); BUN/Creat Ratio 29.67 Ratio (12.00-20.00); Blood Urea Nitrogen 17.8 mg/dL (9.0-27.0); Calcium 8.1 mg/dL (8.7-10.3); Carbon Dioxide 23.7 mmol/L (21.6-31.8); Non-African American GFR(CKD) 87.9 (60.0-200.0)
[2021-06-11 11:13] LABS: Basophils # (A) 0.02 X 10*3/uL (0.00-0.10); Basophils % (A) 0.2 %; Eosinophils # (A) 0.14 X 10*3/uL (0.04-0.35); Eosinophils % (A) 1.7 %; Lymphocytes # (A) 1.12 X 10*3/uL (0.90-5.00); Lymphocytes % (A) 13.6 %; Monocytes # (A) 1.08 X 10*3/uL (0.20-1.00); Monocytes % (A) 13.1 %; Neutrophils # (A) 5.86 X 10*3/uL (1.80-7.70); Neutrophils % (A) 70.9 %
--- NOTE | 2021-06-11 15:03 | P.PN ---
Subjective Progress Note Date: 06/11/21 76-year-old female presents to the emergency department for weakness. Patient was seen in the emergency department yesterday after she sustained a fall and had a left humeral fracture. It was recommended that the patient hospitalized however she was adamant that she wanted to go home. Patient reports her son took her home last night. She laid on the couch and was unable to get up all day long. States that she has not anything since before her fall. She has not taken anything for pain. She is unable to toilet herself or cooked food. Son came over the house later this evening and found the patient in the same position she was in yesterday. Because of this EMS was called to bring the patient back to the emergency room. She denies any new aches or pains. Just has continued pain in the left shoulder. No new falls. No other alleviating, precipitating or modifying factors Blood work in ED reveals a WBC of 7.3, hemoglobin 10, hematocrit 29.9 and platelet count of 143, sodium 132, potassium 4.6, BUN/creatinine of 25/0.7 Radiology studies reveal fracture of left humeral head and left shoulder joint dislocation 06/09/2021 Patient doesn't have any symptoms and overnight events patient most probably will undergo left shoulder arthroplasty today. Patient's INR is 1.4 patient can be operated with that INR. Patient will not require bridging with heparin as her chads score is less than 5. 06/10/2021 Patient is resting in the bed with her and her son at the bedside. She is having quite a bit of pain to her left shoulder and does not like to positioned. There is some bruising noted. Orthopedics was making adjustments to be see medication. She is cleared to resume her Coumadin, we ordered an incentive spirometer. Please encourage use. Patient had a PT OT evaluation today. She is also requesting breathing treatments for a history of COPD and emphysema. She states that it feels tight to take a deep breath. She has albuterol as needed ordered. In addition patient states that she would like a soft diet due to poor dentition, this was ordered for her. Labs today include a white blood cell count 7.6, hemoglobin of 7.5, platelet count of 130. Her INR today is 1.3, sod ium level 133. Repeat labs in the morning. Patient is remained afebrile, heart rate 87 segs rhythm, blood pressure 164/83 and she is 93% on 1 liter nasal cannula. 06/11/2021 Patient is evaluated today sitting up in the chair. She does complain of shoulder pain as well as lower extremities edema that is worsening. Her hemoglobin today is 7. She denies any bowel movement however she states that she is passing gas. Her INR today is 1.2. She is on Coumadin dosing per pharmacy. She is receiving pain management with Ultram, morphine. Patient is continuing with PT and OT. Encourage incentive spirometer. Please elevate her lower extremities when she is sitting. We will check a BNP. Vital signs include a temp of 97.3, heart rate 73 sinus rhythm, blood pressure 102/63, 99% on nasal cannula. ROS Constitutional: Denied any fatigue denied any fever. Cardio vascular: denied any chest pain, palpitations Gastrointestinal denied any nausea vomiting Pulmonary: Denied any shortness of breath cough Neurologic denied any new focal deficits All inpatient medications were reviewed and appropriate changes in these medications as dictated in the interval history and assessment and plan. PHYSICAL EXAMINATION: GENERAL: The patient is alert and oriented x3, not in any acute distress. Well developed, well nourished. HEENT: Pupils are round and equally reacting to light. EOMI. No scleral icterus. No conjunctival pallor. Normocephalic, atraumatic. No pharyngeal erythema. No thyromegaly. CARDIOVASCULAR: S1 and S2 present. No murmurs, rubs, or gallops. PULMONARY: Chest is clear to auscultation, no wheezing or crackles. ABDOMEN: Soft, nontender, nondistended, normoactive bowel sounds. No palpable organomegaly. MUSCULOSKELETAL: Deferred to orthopedic surgery EXTREMITIES: No cyanosis, clubbing, or pedal edema. Cap refill fell to the left hand is <3 seconds, and left radial pulse is +2. NEUROLOGICAL: Gross neurological examination did not reveal any focal deficits. SKIN: No rashes. Assessment and plan -Left shoulder dislocation and fracture: POD #2 left shoulder arthroplasty today -Paroxysmal A. fib anticoagulated on Coumadin will not require bridging since her chads score is less than 5 -Mild nonspecific transaminitis no further intervention at this time -Hypertension, resumed small dose of losartan, patient is experiencing blood pressure in the low 100s. We will hold losartan -COPD without acute exacerbation -Hypothyroidism Coumadin has been resumed, encourage incentive spirometer use. Pain management from orthopedics. Repeat labs in the morning. Discharge in 1-2 days as per recommended by orthopedics. Please encourage oral intake. Objective - Vital Signs Vital signs: Vital Signs Temp 97.3 F L 06/11/21 14:55 Pulse 73 06/11/21 14:55 Resp 16 06/11/21 14:55 BP 102/63 06/11/21 14:55 Pulse Ox 99 06/11/21 14:55 Intake & Output 06/10/21 06/11/21 06/11/21 18:59 06:59 18:59 Output Total 110 Balance -110 Output: Urine 110 Other: Voiding Method Diaper Diaper External Catheter Incontinent Incontinent External Catheter # Voids 0 # Bowel Movements 0 0 - Labs CBC & Chem 7: 06/11/21 06:46 06/11/21 06:46 Labs: Abnormal Lab Results - Last 24 Hours (Table) 06/09/21 06/11/21 06/11/21 Range/Units 12:42 06:46 06:46 RBC 2.01 L (4.10-5.20) X 10*6/uL Hgb 7.0 L (12.0-15.0) g/dL Hct 22.0 L (37.2-46.3) % MCV 109.5 H (80.0-97.0) fL MCH 34.8 H (27.0-32.0) pg MCHC 31.8 L (32.0-37.0) g/dL Monocytes # 1.08 H (0.20-1.00) X 10*3/uL INR 1.2 H (<1.2) BUN/Creatinine Ratio (12.00-20.00) Ratio Glucose (70-110) mg/dL Calcium (8.7-10.3) mg/dL Crossmatch See Detail 06/11/21 Range/Units 06:46 RBC (4.10-5.20) X 10*6/uL Hgb (12.0-15.0) g/dL Hct (37.2-46.3) % MCV (80.0-97.0) fL MCH (27.0-32.0) pg MCHC (32.0-37.0) g/dL Monocytes # (0.20-1.00) X 10*3/uL INR (<1.2) BUN/Creatinine Ratio 29.67 H (12.00-20.00) Ratio Glucose 112 H (70-110) mg/dL Calcium 8.1 L (8.7-10.3) mg/dL Crossmatch Assessment and Plan Time with Patient: Greater than 30
[2021-06-11] MEDS ORDERED: WARFARIN 5 MG TAB PO ONE (18:00)
[2021-06-11] MEDS: MONTELUKAST 10 MG TAB PO SCH (22:12)
[2021-06-12] MEDS: traMADol 50 MG TAB PO PRN ×3 (05:09→19:59)
[2021-06-12] MEDS: LEVOTHYROXINE 112 MCG TAB PO SCH (05:09)
[2021-06-12 07:30] LABS: INR 1.1 (<1.2); Prothrombin Time 11.9 sec (9.0-12.0)
[2021-06-12] MEDS: BUDESONIDE 0.5 MG/2 ML NEBU INHALATION SCH ×2 (08:07→20:27)
[2021-06-12] MEDS: METOPROLOL TARTRATE 50 MG TAB PO SCH ×2 (08:45→20:18)
[2021-06-12] MEDS: CHOLECALCIFEROL 25 MCG (1000 IU) TABLET PO SCH (08:45)
[2021-06-12] MEDS: CITALOPRAM HYDROBROMIDE 20 MG TAB PO SCH (08:46)
[2021-06-12] MEDS: PRIMIDONE 50 MG TAB PO SCH (08:46)
[2021-06-12] MEDS: ACETAMINOPHEN TAB 500 MG TAB PO SCH ×3 (08:46→21:44)
[2021-06-12] MEDS: FLUTICASONE 50MCG/SPRAY NASAL 16GM EA NOSTRIL SCH (08:50)
[2021-06-12] MEDS: SODIUM CHLORIDE 0.9% 1,000 ML IV SCH ×2 (09:58→22:39)
[2021-06-12 10:43] LABS: Basophils # (A) 0.02 X 10*3/uL (0.00-0.10); Basophils % (A) 0.3 %; Eosinophils % (A) 2.9 %; Lymphocytes # (A) 0.95 X 10*3/uL (0.90-5.00); Monocytes # (A) 0.79 X 10*3/uL (0.20-1.00); Monocytes % (A) 11.6 %; Neutrophils % (A) 70.8 %
--- NOTE | 2021-06-12 10:51 | P.PN ---
Subjective Progress Note Date: 06/12/21 Principal diagnosis: Status post left reverse total shoulder arthroplasty This is a 76 year-old female post left reverse total shoulder arthroplasty. This is post-op day 3. The patient was evaluated at the bedside today. The patient denies nausea, vomiting, abdominal pain, shortness of breath, and chest pain this morning. She states her pain is better controlled today. She has received her Tylenol around the clock and Ultram 100mg, which seems to work better for her. The patient was in the chair most of the day yesterday according to nursing staff. She states her hand "feels 1/2 today." We are awaiting rehab placement. Objective - Vital Signs Vital signs: Vital Signs Temp 97.8 F 06/12/21 07:00 Pulse 76 06/12/21 08:14 Resp 16 06/12/21 07:00 BP 152/76 06/12/21 07:00 Pulse Ox 93 L 06/12/21 08:07 Intake & Output 06/11/21 06/12/21 06/12/21 18:59 06:59 18:59 Other: Voiding Method External Catheter Diaper Incontinent # Voids 2 1 - Exam The patient does not appear in acute distress. Alert and orientated x3. Dressing is clean dry and intact. Upper arm and forearm are soft and minimally tender. Good wrist and hand/finger motion without difficulty. Sensation and circulatory status is intact. - Labs CBC & Chem 7: 06/11/21 06:46 06/11/21 06:46 Labs: Abnormal Lab Results - Last 24 Hours (Table) 06/11/21 Range/Units 06:46 Monocytes # 1.08 H (0.20-1.00) X 10*3/uL Assessment and Plan (1) Status post reverse arthroplasty of left shoulder Current Visit: Yes Status: Acute Code(s): Z96.612 - PRESENCE OF LEFT SHEKHAR FICIAL SHOULDER JOINT SNOMED Code(s): 02662291330549768 (2) Fracture of head of left humerus Current Visit: Yes Status: Acute Code(s): S42.292A - OTH DISP FX OF UPPER END OF LEFT HUMERUS, INIT FOR CLOS FX SNOMED Code(s): 378428322 (3) Multiple falls Current Visit: Yes Status: Acute Code(s): R29.6 - REPEATED FALLS SNOMED Code(s): 981246347 Plan: 1. Continue pain control with Tylenol and Ultram. 2. Anticoagulation with Coumadin per protocol. 3. Continue physical therapy and ambulation. Passive ROM of the shoulder is ok. No external or internal rotation at this time. 4. Anticipate discharge to skilled rehab today or tomorrow depending on authorization.
[2021-06-12 10:55] LABS: HCT 20.5 % (37.2-46.3); HGB 6.7 g/dL (12.0-15.0); MCH 34.5 pg (27.0-32.0); MCHC 32.7 g/dL (32.0-37.0); MCV 105.7 fL (80.0-97.0); Macrocytosis (M) 2+; Mean Platelet Volume 10.6 fL (9.5-12.2); Platelet Count 149 X 10*3/uL (140-440); RBC 1.94 X 10*6/uL (4.10-5.20); RDW 13.5 % (11.5-14.5); WBC 6.79 X 10*3/uL (4.50-10.00)
[2021-06-12 11:23] LABS: African American GFR (CKD) 101.9 (60.0-200.0); Anion Gap 13.8 mmol/L (4.00-12.00); BUN/Creat Ratio 29.33 Ratio (12.00-20.00); Blood Urea Nitrogen 17.6 mg/dL (9.0-27.0); Calcium 8.2 mg/dL (8.7-10.3); Carbon Dioxide 19.2 mmol/L (21.6-31.8); Magnesium 1.9 mg/dL (1.5-2.4); Non-African American GFR(CKD) 87.9 (60.0-200.0)
--- NOTE | 2021-06-12 12:45 | P.PN ---
Subjective Progress Note Date: 06/12/21 76-year-old female presents to the emergency department for weakness. Patient was seen in the emergency department yesterday after she sustained a fall and had a left humeral fracture. It was recommended that the patient hospitalized however she was adamant that she wanted to go home. Patient reports her son took her home last night. She laid on the couch and was unable to get up all day long. States that she has not anything since before her fall. She has not taken anything for pain. She is unable to toilet herself or cooked food. Son came over the house later this evening and found the patient in the same position she was in yesterday. Because of this EMS was called to bring the patient back to the emergency room. She denies any new aches or pains. Just has continued pain in the left shoulder. No new falls. No other alleviating, precipitating or modifying factors Blood work in ED reveals a WBC of 7.3, hemoglobin 10, hematocrit 29.9 and platelet count of 143, sodium 132, potassium 4.6, BUN/creatinine of 25/0.7 Radiology studies reveal fracture of left humeral head and left shoulder joint dislocation 06/09/2021 Patient doesn't have any symptoms and overnight events patient most probably will undergo left shoulder arthroplasty today. Patient's INR is 1.4 patient can be operated with that INR. Patient will not require bridging with heparin as her chads score is less than 5. 06/10/2021 Patient is resting in the bed with her and her son at the bedside. She is having quite a bit of pain to her left shoulder and does not like to positioned. There is some bruising noted. Orthopedics was making adjustments to be see medication. She is cleared to resume her Coumadin, we ordered an incentive spirometer. Please encourage use. Patient had a PT OT evaluation today. She is also requesting breathing treatments for a history of COPD and emphysema. She states that it feels tight to take a deep breath. She has albuterol as needed ordered. In addition patient states that she would like a soft diet due to poor dentition, this was ordered for her. Labs today include a white blood cell count 7.6, hemoglobin of 7.5, platelet count of 130. Her INR today is 1.3, sod ium level 133. Repeat labs in the morning. Patient is remained afebrile, heart rate 87 segs rhythm, blood pressure 164/83 and she is 93% on 1 liter nasal cannula. 06/11/2021 Patient is evaluated today sitting up in the chair. She does complain of shoulder pain as well as lower extremities edema that is worsening. Her hemoglobin today is 7. She denies any bowel movement however she states that she is passing gas. Her INR today is 1.2. She is on Coumadin dosing per pharmacy. She is receiving pain management with Ultram, morphine. Patient is continuing with PT and OT. Encourage incentive spirometer. Please elevate her lower extremities when she is sitting. We will check a BNP. Vital signs include a temp of 97.3, heart rate 73 sinus rhythm, blood pressure 102/63, 99% on nasal cannula. 06/12/2021 Patient is resting the bedtime my evaluation. She is still complaining of quite a bit of pain to that right shoulder. She does state that her breathing is improved as compared to yesterday. She is receiving nebulized albuterol as needed. Patient is on room air today with an oxygen saturation of 98%. She has remained afebrile. Her blood pressure is 152/76. Patient's hemoglobin today was found to be 6.7 we will transfuse with 1 unit of PRBCs. Additional labs include a sodium level of 135, potassium 4. mag is 1.9. Her BNP is 3540. We will follow-up with a chest x-ray. INR is 1.1, she is on Coumadin dosing per pharmacy. ROS Constitutional: Denies fever. Reports fatigue. Cardio vascular: denied any chest pain, palpitations Gastrointestinal denied any nausea vomiting Pulmonary: Denied any shortness of breath cough Neurologic denied any new focal deficits All inpatient medications were reviewed and appropriate changes in these medications as dictated in the interval history and assessment and plan. PHYSICAL EXAMINATION: GENERAL: The patient is alert and oriented x3, not in any acute distress. Well developed, well nourished. HEENT: Pupils are round and equally reacting to light. EOMI. No scleral icterus. No conjunctival pallor. Normocephalic, atraumatic. No pharyngeal erythema. No thyromegaly. CARDIOVASCULAR: S1 and S2 present. No murmurs, rubs, or gallops. PULMONARY: There are some faint crackles noted to the right lung base. ABDOMEN: Soft, nontender, nondistended, normoactive bowel sounds. No palpable organomegaly. MUSCULOSKELETAL: Deferred to orthopedic surgery EXTREMITIES: No cyanosis, clubbing, or pedal edema. Cap refill fell to the left hand is <3 seconds, and left radial pulse is +2. NEUROLOGICAL: Gross neurological examination did not reveal any focal deficits. SKIN: No rashes. Assessment and plan -Left shoulder dislocation and fracture: POD #3 left shoulder arthroplasty -Paroxysmal A. fib anticoagulated on Coumadin, which is on hold for hemoglobin of 6.7 -Mild nonspecific transaminitis no further intervention at this time -Hypertension, resumed small dose of losartan, patient is experiencing blood pressure in the low 100s. We will hold losartan -COPD without acute exacerbation -Hypothyroidism -Anemia, suspected blood loss due to surgery, hemoglobin today 6.7, we will transfuse with 1 unit and recheck tomorrow -Elevated BNP, follow-up chest x-ray GI prophylaxis: Pepcid DVT prophylaxis: Coumadin is placed on hold due to low hgb at 6.7, use mechanical SCDs Objective - Vital Signs Vital signs: Vital Signs Temp 97.8 F 06/12/21 07:00 Pulse 76 06/12/21 08:14 Resp 16 06/12/21 07:00 BP 152/76 06/12/21 07:00 Pulse Ox 93 L 06/12/21 08:07 Intake & Output 06/11/21 06/12/21 06/12/21 18:59 06:59 18:59 Other: Voiding Method External Catheter Diaper Incontinent # Voids 2 1 - Labs CBC & Chem 7: 06/12/21 06:49 06/12/21 06:49 Labs: Abnormal Lab Results - Last 24 Hours (Table) 06/09/21 06/12/21 06/12/21 Range/Units 12:42 06:49 06:49 RBC 1.94 L (4.10-5.20) X 10*6/uL Hgb 6.7 L* (12.0-15.0) g/dL Hct 20.5 L (37.2-46.3) % MCV 105.7 H (80.0-97.0) fL MCH 34.5 H (27.0-32.0) pg Carbon Dioxide 19.2 L (21.6-31.8) mmol/L Anion Gap 13.80 H (4.00-12.00) mmol/L BUN/Creatinine Ratio 29.33 H (12.00-20.00) Ratio Calcium 8.2 L (8.7-10.3) mg/dL Crossmatch See Detail Assessment and Plan Time with Patient: Greater than 30
[2021-06-12 13:07] VITALS: BMI 29.9
--- NOTE | 2021-06-12 13:13 | XR ---
EXAMINATION TYPE: XR chest 2V DATE OF EXAM: 06/12/2021 COMPARISON: Chest x-ray January 23, 2020 HISTORY: Recent shoulder surgery with abnormal physical exam, crackles right lung base TECHNIQUE: Frontal and lateral views of the chest are obtained. FINDINGS: There is no suspicious new focal air space opacity, pleural effusion, or pneumothorax seen . Cardiomegaly redemonstrated. Surgical change left shoulder is partially imaged. IMPRESSION: Cardiomegaly without new suspicious acute pulmonary process.
[2021-06-12] MEDS ORDERED: WARFARIN 5 MG TAB PO ONE (18:00)
[2021-06-12] MEDS: MONTELUKAST 10 MG TAB PO SCH (20:18)
[2021-06-12] MEDS: ALBUTEROL NEBULIZED 2.5 MG/3 ML INHALATION PRN (20:27)
[2021-06-13] MEDS: LEVOTHYROXINE 112 MCG TAB PO SCH (05:56)
[2021-06-13 07:15] LABS: Anisocytosis Slight; Basophils % (A) 0 %; Eosinophils # (A) 0.2 k/uL (0-0.7); Eosinophils % (A) 3 %; HCT 26.5 % (34.0-46.0); HGB 8.4 gm/dL (11.4-16.0); Hypochromasia Slight; Lymphocytes % (A) 15 %; MCH 33.6 pg (25.0-35.0); MCHC 31.8 g/dL (31.0-37.0); MCV 105.8 fL (80.0-100.0); Macrocytosis Moderate; Mean Platelet Volume 8.4; Monocytes # (A) 0.5 k/uL (0-1.0); Monocytes % (A) 7 %; Neutrophils # (A) 4.9 k/uL (1.3-7.7); Neutrophils % (A) 73 %; Platelet Count 167 k/uL (150-450); RDW 16.8 % (11.5-15.5); WBC 6.7 k/uL (3.8-10.6)
[2021-06-13 07:27] LABS: INR 1.2 (<1.2); Prothrombin Time 12.1 sec (9.0-12.0)
[2021-06-13] MEDS: CITALOPRAM HYDROBROMIDE 20 MG TAB PO SCH (08:02)
[2021-06-13] MEDS: CHOLECALCIFEROL 25 MCG (1000 IU) TABLET PO SCH (08:02)
[2021-06-13] MEDS: PRIMIDONE 50 MG TAB PO SCH (08:02)
[2021-06-13] MEDS: METOPROLOL TARTRATE 50 MG TAB PO SCH ×2 (08:02→21:16)
[2021-06-13] MEDS: FAMOTIDINE 20 MG TAB PO SCH (08:02)
[2021-06-13] MEDS: FLUTICASONE 50MCG/SPRAY NASAL 16GM EA NOSTRIL SCH (08:03)
[2021-06-13] MEDS: traMADol 50 MG TAB PO PRN (08:08)
[2021-06-13] MEDS: BUDESONIDE 0.5 MG/2 ML NEBU INHALATION SCH ×2 (08:22→20:17)
[2021-06-13] MEDS: ACETAMINOPHEN TAB 500 MG TAB PO SCH ×3 (09:47→21:16)
--- NOTE | 2021-06-13 10:04 | P.PN ---
Subjective Progress Note Date: 06/13/21 Principal diagnosis: Status post left reverse total shoulder arthroplasty This is a 76 year-old female post left reverse total shoulder arthroplasty. This is post-op day 4. The patient was evaluated at the bedside today. The patient denies nausea, vomiting, abdominal pain, shortness of breath, and chest pain this morning. She states her pain is better controlled today. She has received her Tylenol around the clock and Ultram 100mg, which seems to work better for her. The patient has been getting up to the chair. She states her hand "feels 1/2 today." We are awaiting rehab placement which will likely happen tomorrow. Objective - Vital Signs Vital signs: Vital Signs Temp 99.2 F 06/13/21 07:00 Pulse 83 06/13/21 07:00 Resp 18 06/13/21 07:00 BP 150/82 06/13/21 07:00 Pulse Ox 97 06/13/21 07:00 Intake & Output 06/12/21 06/13/21 06/13/21 18:59 06:59 18:59 Intake Total 273 Output Total 200 100 Balance 73 -100 Weight 81.647 kg Intake: Blood Product 273 Rc Pheresis 2 As3 Unit 273 [id number] Output: Urine 200 100 Other: Voiding Method External Catheter External Catheter - Exam The patient does not appear in acute distress. Alert and orientated x3. Dressing is clean dry and intact. Upper arm and forearm are soft and minimally tender. Good wrist and hand/finger motion without difficulty. Sensation and circulatory status is intact. - Labs CBC & Chem 7: 06/13/21 06:06 06/12/21 06:49 Labs: Abnormal Lab Results - Last 24 Hours (Table) 06/09/21 06/12/21 06/12/21 Range/Units 12:42 06:49 06:49 RBC 1.94 L (4.10-5.20) X 10*6/uL Hgb 6.7 L* (12.0-15.0) g/dL Hct 20.5 L (37.2-46.3) % MCV 105.7 H (80.0-97.0) fL MCH 34.5 H (27.0-32.0) pg RDW (11.5-15.5) % PT (9.0-12.0) sec INR (<1.2) Carbon Dioxide 19.2 L (21.6-31.8) mmol/L Anion Gap 13.80 H (4.00-12.00) mmol/L BUN/Creatinine Ratio 29.33 H (12.00-20.00) Ratio Calcium 8.2 L (8.7-10.3) mg/dL Crossmatch See Detail 06/13/21 06/13/21 Range/Units 06:06 06:06 RBC 2.50 L (4.10-5.20) X 10*6/uL Hgb 8.4 L (12.0-15.0) g/dL Hct 26.5 L (37.2-46.3) % MCV 105.8 H (80.0-97.0) fL MCH (27.0-32.0) pg RDW 16.8 H (11.5-15.5) % PT 12.1 H (9.0-12.0) sec INR 1.2 H (<1.2) Carbon Dioxide (21.6-31.8) mmol/L Anion Gap (4.00-12.00) mmol/L BUN/Creatinine Ratio (12.00-20.00) Ratio Calcium (8.7-10.3) mg/dL Crossmatch Assessment and Plan (1) Status post reverse arthroplasty of left shoulder Current Visit: Yes Status: Acute Code(s): Z96.612 - PRESENCE OF LEFT ARTIF ICIAL SHOULDER JOINT SNOMED Code(s): 26685089277845350 (2) Fracture of head of left humerus Current Visit: Yes Status: Acute Code(s): S42.292A - OTH DISP FX OF UPPER END OF LEFT HUMERUS, INIT FOR CLOS FX SNOMED Code(s): 944911253 (3) Multiple falls Current Visit: Yes Status: Acute Code(s): R29.6 - REPEATED FALLS SNOMED Code(s): 641899462 Plan: 1. Continue pain control with Tylenol and Ultram. 2. Anticoagulation with Coumadin per protocol. 3. Continue physical therapy and ambulation. Passive ROM of the shoulder is ok. No active external or internal rotation at this time. 4. Anticipate discharge to skilled rehab likely tomorrow.
[2021-06-13 11:25] LABS: African American GFR (CKD) 96.9 (60.0-200.0); Anion Gap 11.5 mmol/L (4.00-12.00); BUN/Creat Ratio 29.14 Ratio (12.00-20.00); Blood Urea Nitrogen 20.4 mg/dL (9.0-27.0); Calcium 8.4 mg/dL (8.7-10.3); Carbon Dioxide 22.5 mmol/L (21.6-31.8); Magnesium 1.9 mg/dL (1.5-2.4); Non-African American GFR(CKD) 83.6 (60.0-200.0); Potassium 4.8 mmol/L (3.5-5.5)
--- NOTE | 2021-06-13 12:50 | P.PN ---
Subjective Progress Note Date: 06/13/21 76-year-old female presents to the emergency department for weakness. Patient was seen in the emergency department yesterday after she sustained a fall and had a left humeral fracture. It was recommended that the patient hospitalized however she was adamant that she wanted to go home. Patient reports her son took her home last night. She laid on the couch and was unable to get up all day long. States that she has not anything since before her fall. She has not taken anything for pain. She is unable to toilet herself or cooked food. Son came over the house later this evening and found the patient in the same position she was in yesterday. Because of this EMS was called to bring the patient back to the emergency room. She denies any new aches or pains. Just has continued pain in the left shoulder. No new falls. No other alleviating, precipitating or modifying factors Blood work in ED reveals a WBC of 7.3, hemoglobin 10, hematocrit 29.9 and platelet count of 143, sodium 132, potassium 4.6, BUN/creatinine of 25/0.7 Radiology studies reveal fracture of left humeral head and left shoulder joint dislocation 06/09/2021 Patient doesn't have any symptoms and overnight events patient most probably will undergo left shoulder arthroplasty today. Patient's INR is 1.4 patient can be operated with that INR. Patient will not require bridging with heparin as her chads score is less than 5. 06/10/2021 Patient is resting in the bed with her and her son at the bedside. She is having quite a bit of pain to her left shoulder and does not like to positioned. There is some bruising noted. Orthopedics was making adjustments to be see medication. She is cleared to resume her Coumadin, we ordered an incentive spirometer. Please encourage use. Patient had a PT OT evaluation today. She is also requesting breathing treatments for a history of COPD and emphysema. She states that it feels tight to take a deep breath. She has albuterol as needed ordered. In addition patient states that she would like a soft diet due to poor dentition, this was ordered for her. Labs today include a white blood cell count 7.6, hemoglobin of 7.5, platelet count of 130. Her INR today is 1.3, sod ium level 133. Repeat labs in the morning. Patient is remained afebrile, heart rate 87 segs rhythm, blood pressure 164/83 and she is 93% on 1 liter nasal cannula. 06/11/2021 Patient is evaluated today sitting up in the chair. She does complain of shoulder pain as well as lower extremities edema that is worsening. Her hemoglobin today is 7. She denies any bowel movement however she states that she is passing gas. Her INR today is 1.2. She is on Coumadin dosing per pharmacy. She is receiving pain management with Ultram, morphine. Patient is continuing with PT and OT. Encourage incentive spirometer. Please elevate her lower extremities when she is sitting. We will check a BNP. Vital signs include a temp of 97.3, heart rate 73 sinus rhythm, blood pressure 102/63, 99% on nasal cannula. 06/12/2021 Patient is resting the bedtime my evaluation. She is still complaining of quite a bit of pain to that right shoulder. She does state that her breathing is improved as compared to yesterday. She is receiving nebulized albuterol as needed. Patient is on room air today with an oxygen saturation of 98%. She has remained afebrile. Her blood pressure is 152/76. Patient's hemoglobin today was found to be 6.7 we will transfuse with 1 unit of PRBCs. Additional labs include a sodium level of 135, potassium 4. mag is 1.9. Her BNP is 3540. We will follow-up with a chest x-ray. INR is 1.1, she is on Coumadin dosing per pharmacy. 06/13/2021 Hemoglobin today is 8.4 status post 1 unit of PRBCs. Patient denies any numbness or tingling to her left upper extremity, however she states that her hand also worsen her shoulder. There is +2 radial pulse and less than 3 cap refill. She was able to be taken off the nasal cannula and is 97% on room air. Her blood pressure is 150/82 inches 83 heart rate sinus rhythm. She is a low temp today 99.2 please encourage the use of her incentive spirometer. Resume Coumadin. We will check a vitamin B12 if not receieved by discharge she can follow-up with this outpatient. ROS Constitutional: Denies fever. Reports fatigue. Cardio vascular: denied any chest pain, palpitations Gastrointestinal denied any nausea vomiting Pulmonary: Denied any shortness of breath cough Neurologic denied any new focal deficits All inpatient medications were reviewed and appropriate changes in these medications as dictated in the interval history and assessment and plan. PHYSICAL EXAMINATION: GENERAL: The patient is alert and oriented x3, not in any acute distress. Well developed, well nourished. HEENT: Pupils are round and equally reacting to light. EOMI. No scleral icterus. No conjunctival pallor. Normocephalic, atraumatic. No pharyngeal erythema. No thyromegaly. CARDIOVASCULAR: S1 and S2 present. No murmurs, rubs, or gallops. PULMONARY: Lungs are diminished ABDOMEN: Soft, nontender, nondistended, normoactive bowel sounds. No palpable organomegaly. MUSCULOSKELETAL: Deferred to orthopedic surgery EXTREMITIES: No cyanosis, clubbing, or pedal edema. Cap refill fell to the left hand is <3 seconds, and left radial pulse is +2. NEUROLOGICAL: Gross neurological examination did not reveal any focal deficits. SKIN: No rashes. Assessment and plan -Left shoulder dislocation and fracture: POD #4 left shoulder arthroplasty -Paroxysmal A. fib anticoagulated on Coumadin, -Mild nonspecific transaminitis no further intervention at this time -Hypertension, resumed small dose of losartan, patient is experiencing blood pressure in the low 100s. We will hold losartan -COPD without acute exacerbation -Hypothyroidism -Anemia, macrocytic, suspected blood loss due to surgery, hemoglobin today 8.4 status post 1 unit of PRBC - check B12 GI prophylaxis: Pepcid DVT prophylaxis: Coumadin Objective - Vital Signs Vital signs: Vital Signs Temp 99.2 F 06/13/21 07:00 Pulse 83 06/13/21 07:00 Resp 18 06/13/21 07:00 BP 150/82 06/13/21 07:00 Pulse Ox 97 06/13/21 07:00 Intake & Output 06/12/21 06/13/21 06/13/21 18:59 06:59 18:59 Intake Total 273 Output Total 200 100 Balance 73 -100 Weight 81.647 kg Intake: Blood Product 273 Rc Pheresis 2 As3 Unit 273 [id number] Output: Urine 200 100 Other: Voiding Method External Catheter External Catheter - Labs CBC & Chem 7: 06/13/21 06:06 06/13/21 06:06 Labs: Abnormal Lab Results - Last 24 Hours (Table) 06/09/21 06/12/21 06/13/21 Range/Units 12:42 06:49 06:06 RBC (3.80-5.40) m/uL Hgb (11.4-16.0) gm/dL Hct (34.0-46.0) % MCV (80.0-100.0) fL RDW (11.5-15.5) % PT 12.1 H (9.0-12.0) sec INR 1.2 H (<1.2) Carbon Dioxide 19.2 L (21.6-31.8) mmol/L Anion Gap 13.80 H (4.00-12.00) mmol/L BUN/Creatinine Ratio 29.33 H (12.00-20.00) Ratio Calcium 8.2 L (8.7-10.3) mg/dL Crossmatch See Detail 06/13/21 Range/Units 06:06 RBC 2.50 L (3.80-5.40) m/uL Hgb 8.4 L (11.4-16.0) gm/dL Hct 26.5 L (34.0-46.0) % MCV 105.8 H (80.0-100.0) fL RDW 16.8 H (11.5-15.5) % PT (9.0-12.0) sec INR (<1.2) Carbon Dioxide (21.6-31.8) mmol/L Anion Gap (4.00-12.00) mmol/L BUN/Creatinine Ratio (12.00-20.00) Ratio Calcium (8.7-10.3) mg/dL Crossmatch Assessment and Plan Time with Patient: Greater than 30
[2021-06-13] MEDS: SODIUM CHLORIDE 0.9% 1,000 ML IV SCH (13:25)
[2021-06-13] MEDS ORDERED: WARFARIN 3 MG TAB PO ONE (18:00)
[2021-06-13] MEDS: ALBUTEROL NEBULIZED 2.5 MG/3 ML INHALATION PRN (20:16)
[2021-06-13] MEDS: MONTELUKAST 10 MG TAB PO SCH (21:16)
[2021-06-14] MEDS: SODIUM CHLORIDE 0.9% 1,000 ML IV SCH (03:02)
[2021-06-14] MEDS: LEVOTHYROXINE 112 MCG TAB PO SCH (05:48)
[2021-06-14 07:53] VITALS: BP 161/88; TEMP 97.9
[2021-06-14] MEDS: ALBUTEROL NEBULIZED 2.5 MG/3 ML INHALATION PRN (08:24)
[2021-06-14] MEDS: BUDESONIDE 0.5 MG/2 ML NEBU INHALATION SCH (08:24)
[2021-06-14 08:28] VITALS: PULSE 80
[2021-06-14] MEDS: CHOLECALCIFEROL 25 MCG (1000 IU) TABLET PO SCH (08:38)
[2021-06-14] MEDS: METOPROLOL TARTRATE 50 MG TAB PO SCH (08:38)
[2021-06-14] MEDS: ACETAMINOPHEN TAB 500 MG TAB PO SCH (08:38)
[2021-06-14] MEDS: traMADol 50 MG TAB PO PRN (08:39)
[2021-06-14] MEDS: CITALOPRAM HYDROBROMIDE 20 MG TAB PO SCH (08:39)
[2021-06-14] MEDS: FAMOTIDINE 20 MG TAB PO SCH (08:39)
[2021-06-14] MEDS: PRIMIDONE 50 MG TAB PO SCH (08:39)
[2021-06-14] MEDS: FLUTICASONE 50MCG/SPRAY NASAL 16GM EA NOSTRIL SCH (08:45)
[2021-06-14 10:20] LABS: INR 1.2 (<1.2); Prothrombin Time 12.2 sec (9.0-12.0)
[2021-06-14 11:50] VITALS: RESP 17
--- NOTE | 2021-06-14 12:06 | P.PN ---
Subjective Progress Note Date: 06/14/21 76-year-old female presents to the emergency department for weakness. Patient was seen in the emergency department yesterday after she sustained a fall and had a left humeral fracture. It was recommended that the patient hospitalized however she was adamant that she wanted to go home. Patient reports her son took her home last night. She laid on the couch and was unable to get up all day long. States that she has not anything since before her fall. She has not taken anything for pain. She is unable to toilet herself or cooked food. Son came over the house later this evening and found the patient in the same position she was in yesterday. Because of this EMS was called to bring the patient back to the emergency room. She denies any new aches or pains. Just has continued pain in the left shoulder. No new falls. No other alleviating, precipitating or modifying factors Blood work in ED reveals a WBC of 7.3, hemoglobin 10, hematocrit 29.9 and platelet count of 143, sodium 132, potassium 4.6, BUN/creatinine of 25/0.7 Radiology studies reveal fracture of left humeral head and left shoulder joint dislocation 06/09/2021 Patient doesn't have any symptoms and overnight events patient most probably will undergo left shoulder arthroplasty today. Patient's INR is 1.4 patient can be operated with that INR. Patient will not require bridging with heparin as her chads score is less than 5. 06/10/2021 Patient is resting in the bed with her and her son at the bedside. She is having quite a bit of pain to her left shoulder and does not like to positioned. There is some bruising noted. Orthopedics was making adjustments to be see medication. She is cleared to resume her Coumadin, we ordered an incentive spirometer. Please encourage use. Patient had a PT OT evaluation today. She is also requesting breathing treatments for a history of COPD and emphysema. She states that it feels tight to take a deep breath. She has albuterol as needed ordered. In addition patient states that she would like a soft diet due to poor dentition, this was ordered for her. Labs today include a white blood cell count 7.6, hemoglobin of 7.5, platelet count of 130. Her INR today is 1.3, sod ium level 133. Repeat labs in the morning. Patient is remained afebrile, heart rate 87 segs rhythm, blood pressure 164/83 and she is 93% on 1 liter nasal cannula. 06/11/2021 Patient is evaluated today sitting up in the chair. She does complain of shoulder pain as well as lower extremities edema that is worsening. Her hemoglobin today is 7. She denies any bowel movement however she states that she is passing gas. Her INR today is 1.2. She is on Coumadin dosing per pharmacy. She is receiving pain management with Ultram, morphine. Patient is continuing with PT and OT. Encourage incentive spirometer. Please elevate her lower extremities when she is sitting. We will check a BNP. Vital signs include a temp of 97.3, heart rate 73 sinus rhythm, blood pressure 102/63, 99% on nasal cannula. 06/12/2021 Patient is resting the bedtime my evaluation. She is still complaining of quite a bit of pain to that right shoulder. She does state that her breathing is improved as compared to yesterday. She is receiving nebulized albuterol as needed. Patient is on room air today with an oxygen saturation of 98%. She has remained afebrile. Her blood pressure is 152/76. Patient's hemoglobin today was found to be 6.7 we will transfuse with 1 unit of PRBCs. Additional labs include a sodium level of 135, potassium 4. mag is 1.9. Her BNP is 3540. We will follow-up with a chest x-ray. INR is 1.1, she is on Coumadin dosing per pharmacy. 06/13/2021 Hemoglobin today is 8.4 status post 1 unit of PRBCs. Patient denies any numbness or tingling to her left upper extremity, however she states that her hand also worsen her shoulder. There is +2 radial pulse and less than 3 cap refill. She was able to be taken off the nasal cannula and is 97% on room air. Her blood pressure is 150/82 inches 83 heart rate sinus rhythm. She is a low temp today 99.2 please encourage the use of her incentive spirometer. Resume Coumadin. We will check a vitamin B12 if not receieved by discharge she can follow-up with this outpatient. 06/14/2021 Patient is evaluated today status post day #5 left shoulder arthroplasty. She still is complaining that her left hand feels . There is a +2 radial pulse with -3 cap refill. There is some bruising noted on the surgical dressing. Heart rate is 87,000, afebrile, blood pressure 161/88 and she is 93% room air. Lungs are clear to auscultation. Chest x-ray showed cardiomegaly without any suspicious acute coronary process. She has chronic leg edema. This is unchanged. Plan is for rehab on discharge when cleared from orthopedics. We're pending labs from today however patient has no signs of active bleeding. If hemoglobin is stable she is cleared medically for discharge. ROS Constitutional: Denies fever. Reports fatigue. Cardio vascular: denied any chest pain, palpitations Gastrointestinal denied any nausea vomiting Pulmonary: Denied any shortness of breath cough Neurologic denied any new focal deficits All inpatient medications were reviewed and appropriate changes in these medications as dictated in the interval history and assessment and plan. PHYSICAL EXAMINATION: GENERAL: The patient is alert and oriented x3, not in any acute distress. Well developed, well nourished. HEENT: Pupils are round and equally reacting to light. EOMI. No scleral icterus. No conjunctival pallor. Normocephalic, atraumatic. No pharyngeal erythema. No thyromegaly. CARDIOVASCULAR: S1 and S2 present. No murmurs, rubs, or gallops. PULMONARY: Lungs are diminished ABDOMEN: Soft, nontender, nondistended, normoactive bowel sounds. No palpable organomegaly. MUSCULOSKELETAL: Deferred to orthopedic surgery EXTREMITIES: No cyanosis, clubbing, or pedal edema. Cap refill fell to the left hand is <3 seconds, and left radial pulse is +2. NEUROLOGICAL: Gross neurological examination did not reveal any focal deficits. SKIN: No rashes. Assessment and plan -Left shoulder dislocation and fracture: POD #5 left shoulder arthroplasty -Paroxysmal A. fib anticoagulated on Coumadin, -Mild nonspecific transaminitis no further intervention at this time -Hypertension, resumed small dose of losartan -COPD without acute exacerbation -Hypothyroidism -Anemia, macrocytic, suspected blood loss due to surgery, status post 1 unit of PRBCs, and B12 within normal limits at 249. GI prophylaxis: Pepcid DVT prophylaxis: Coumadin Patient is cleared medically for discharge to rehab once cleared by orthopedics. Labs are pending from today week and recheck tomorrow. Objective - Vital Signs Vital signs: Vital Signs Temp 97.9 F 06/14/21 07:52 Pulse 80 06/14/21 08:42 Resp 17 06/14/21 08:00 BP 161/88 06/14/21 07:52 Pulse Ox 93 L 06/14/21 07:52 Intake & Output 06/13/21 06/14/21 06/14/21 18:59 06:59 18:59 Output Total 400 1050 Balance -400 -1050 Output: Urine 400 1050 Other: Voiding Method Diaper External Catheter Incontinent - Labs CBC & Chem 7: 06/13/21 06:06 06/13/21 06:06 Labs: Abnormal Lab Results - Last 24 Hours (Table) 06/14/21 Range/Units 09:06 PT 12.2 H (9.0-12.0) sec INR 1.2 H (<1.2) Assessment and Plan Time with Patient: Greater than 30
[2021-06-14 12:13] LABS: Basophils # (A) 0.03 X 10*3/uL (0.00-0.10); Basophils % (A) 0.5 %; Eosinophils # (A) 0.13 X 10*3/uL (0.04-0.35); HCT 24.3 % (37.2-46.3); Lymphocytes # (A) 1.56 X 10*3/uL (0.90-5.00); Lymphocytes % (A) 23.7 %; MCH 33.5 pg (27.0-32.0); MCHC 32.9 g/dL (32.0-37.0); MCV 101.7 fL (80.0-97.0); Mean Platelet Volume 10.2 fL (9.5-12.2); Monocytes # (A) 0.73 X 10*3/uL (0.20-1.00); Monocytes % (A) 11.1 %; Neutrophils # (A) 4.07 X 10*3/uL (1.80-7.70); Neutrophils % (A) 61.8 %; Platelet Count 193 X 10*3/uL (140-440); RBC 2.39 X 10*6/uL (4.10-5.20); RDW 16.3 % (11.5-14.5); WBC 6.58 X 10*3/uL (4.50-10.00)
[2021-06-14] MEDS ORDERED: LOSARTAN 25 MG TAB PO SCH (12:15)
--- NOTE | 2021-06-14 12:29 | P.DS ---
Providers Date of admission: 06/07/21 22:10 Expected date of discharge: 06/14/21 Attending physician: Pushpa Goyal DO Consults: 06/07/21 22:13 Consult Physician Urgent Consulting Provider: Bret Dunn Reason/Comments: multiple falls Do you want consulting provider notified?: Yes Primary care physician: Troy Benoit - Discharge Diagnosis(es) (1) Fracture of head of left humerus Patient was admitted to the OR on 06/09/2021 to undergo a left total shoulder arthroplasty. She had suffered a fall on 06/06/21 resulting in a left proximal humerus fracture. She desired to proceed with elective surgery after given informed consent. She underwent the above procedure which she tolerated well without complication. Postoperative hospital course has remained without complication. On day of discharge she is afebrile, vital signs stable, labs within acceptable ranges, tolerating by mouth meds and diet, voiding without difficulty, positive flatus, denies abdominal pain or calf pain, pain is controlled on oral pain medication and has no new complaints. Wound is benign, neurovascular status is intact, calves are soft and nontender, abdomen soft and nontender. Review of systems is negative for numbness, tingling, fever, chills, chest pain, shortness of breath, nausea, vomiting, dizziness, headaches, slurred speech or other. Current Visit: Yes Status: Acute Priority: Medium Procedures: Left reverse total shoulder arthroplasty Patient Condition at Discharge: Stable Plan - Discharge Summary Discharge Rx Participant: No New Discharge Prescriptions: New Sennosides-Docusate Sodium [Senokot-S] 2 each PO HS PRN tab PRN Reason: Constipation Sennosides-Docusate Sodium [Senokot-S] 1 tab PO BID #30 tablet traMADol HCl [Ultram] 50 - 100 mg PO Q4-6H PRN #30 tab PRN Reason: Pain Losartan [Cozaar] 25 mg PO DAILY #30 tab Famotidine [Pepcid] 20 mg PO DAILY tab Continue Nitroglycerin [Nitrostat] 0.4 mg PO Q5M PRN PRN Reason: Chest Pain Metoprolol Tartrate [Lopressor] 100 mg PO BID Levothyroxine Sodium [Synthroid] 112 mcg PO DAILY Warfarin [Coumadin] 2.5 mg PO DAILY Acetaminophen Tab [Tylenol] 1,000 mg PO Q4H PRN PRN Reason: Pain Or Fever > 100.5 Melatonin 20 mg PO HS Meclizine [Antivert] 12.5 mg PO TID Dicyclomine [Bentyl] 10 mg PO BID Citalopram Hydrobromide [CeleXA] 40 mg PO DAILY Montelukast [Singulair] 10 mg PO DAILY Warfarin [Coumadin] 1 mg PO DAILY Xolair Unknown Dose 1 dose SQ Q28D Fluticasone Nasal [place] [Flonase Nasal [place]] 2 spray EA NOSTRIL DAILY Cholecalciferol (Vitamin D3) [Vitamin D3 (125 MCG = 5,000 IU)] 125 mcg PO DAILY Primidone [Mysoline] 50 mg PO DAILY Albuterol Inhaler [Ventolin Hfa Inhaler] 1 puff INHALATION RT-Q4H PRN PRN Reason: Shortness Of Breath Budesonide [Pulmicort] 0.5 mg INHALATION RT-BID Discontinued Losartan Potassium [Cozaar] 100 mg PO DAILY Discharge Medication List Metoprolol Tartrate [Lopressor] 100 mg PO BID 09/03/14 [History] Nitroglycerin [Nitrostat] 0.4 mg PO Q5M PRN 09/03/14 [History] Levothyroxine Sodium [Synthroid] 112 mcg PO DAILY 09/27/18 [History] Warfarin [Coumadin] 2.5 mg PO DAILY 10/10/18 [History] Acetaminophen Tab [Tylenol] 1,000 mg PO Q4H PRN 06/07/21 [History] Albuterol Inhaler [Ventolin Hfa Inhaler] 1 puff INHALATION RT-Q4H PRN 06/07/21 [History] Budesonide [Pulmicort] 0.5 mg INHALATION RT-BID 06/07/21 [History] Cholecalciferol (Vitamin D3) [Vitamin D3 (125 MCG = 5,000 IU)] 125 mcg PO DAILY 06/07/21 [History] Citalopram Hydrobromide [CeleXA] 40 mg PO DAILY 06/07/21 [History] Dicyclomine [Bentyl] 10 mg PO BID 06/07/21 [History] Fluticasone Nasal [place] [Flonase Nasal [place]] 2 spray EA NOSTRIL DAILY 06/07/21 [History] Meclizine [Antivert] 12.5 mg PO TID 06/07/21 [History] Melatonin 20 mg PO HS 06/07/21 [History] Montelukast [Singulair] 10 mg PO DAILY 06/07/21 [History] Primidone [Mysoline] 50 mg PO DAILY 06/07/21 [History] Warfarin [Coumadin] 1 mg PO DAILY 06/07/21 [History] Xolair Unknown Dose 1 dose SQ Q28D 06/07/21 [History] Sennosides-Docusate Sodium [Senokot-S] 1 tab PO BID #30 tablet 06/12/21 [Rx] traMADol HCl [Ultram] 50 - 100 mg PO Q4-6H PRN #30 tab 06/12/21 [Rx] Famotidine [Pepcid] 20 mg PO DAILY tab 06/14/21 [Rx] Losartan [Cozaar] 25 mg PO DAILY #30 tab 06/14/21 [Rx] Sennosides-Docusate Sodium [Senokot-S] 2 each PO HS PRN tab 06/14/21 [Rx] Follow up Appointment(s)/Referral(s): Pushpa Goyal DO [Doctor of Osteopathic Medicine] - 2 Weeks Troy Benoit DO [Primary Care Provider] - 1-2 days Ambulatory/Diagnostic Orders: Complete Blood Count w/diff [LAB.AMB] Time Frame: 2 Days, Location: None Selected Activity/Diet/Wound Care/Special Instructions: May continue passive ROM of the arm. No active external or internal rotation of the arm at this time. Arm sling for comfort, may loosen in bed. Keep dressing in place for 10 days unless saturated May shower over dressing Follow up with Dr. Pushpa Goyal in 2 weeks. Call [facility] with questions or concerns, Discharge Disposition: TRANSFER TO SNF/ECF
[2021-06-14 13:22] LABS: African American GFR (CKD) 96.9 (60.0-200.0); Anion Gap 11.5 mmol/L (4.00-12.00); BUN/Creat Ratio 23.43 Ratio (12.00-20.00); Blood Urea Nitrogen 16.4 mg/dL (9.0-27.0); Calcium 8.4 mg/dL (8.7-10.3); Carbon Dioxide 23.5 mmol/L (21.6-31.8); Non-African American GFR(CKD) 83.6 (60.0-200.0); Potassium 4.2 mmol/L (3.5-5.5)
[2021-06-14] MEDS ORDERED: WARFARIN 7.5 MG TAB PO ONE (18:00)
== END 2021-06-14 12:55 | DRG 483 ==
LOC: EC 18:45 → 5NMEDONC 22:10 → 1SOBS 06-09 10:42 → 4SSUR 06-09 16:20
PROVIDERS: ADMIT Orthopaedic Surgery Hand Surgery; ATTEND Orthopaedic Surgery Hand Surgery
PROC: 3E0T3BZ Introduction of Anesthetic Agent into Peripheral Nerves and Plexi, Percutaneous Approach (ICD-10-PCS; 2021-06-09)
PROC: 0RRK00Z Replacement of Left Shoulder Joint with Reverse Ball and Socket Synthetic Substitute, Open Approach (ICD-10-PCS; principal; 2021-06-09 09:45)
DX: S42.292A Other displaced fracture of upper end of left humerus, initial encounter for closed fracture (principal); I48.0 Paroxysmal atrial fibrillation; F32.9 Major depressive disorder, single episode, unspecified; K21.9 Gastro-esophageal reflux disease without esophagitis; G47.33 Obstructive sleep apnea (adult) (pediatric); Z20.822 Contact with and (suspected) exposure to COVID-19; M19.90 Unspecified osteoarthritis, unspecified site; E03.9 Hypothyroidism, unspecified; E78.5 Hyperlipidemia, unspecified; M79.7 Fibromyalgia; Z87.891 Personal history of nicotine dependence; Z83.3 Family history of diabetes mellitus; Z82.49 Family history of ischemic heart disease and other diseases of the circulatory system; Z79.899 Other long term (current) drug therapy; Z79.890 Hormone replacement therapy; Z79.01 Long term (current) use of anticoagulants; Z91.81 History of falling; S43.005A Unspecified dislocation of left shoulder joint, initial encounter; W19.XXXA Unspecified fall, initial encounter; J43.9 Emphysema, unspecified; I10 Essential (primary) hypertension; R74.01 Elevation of levels of liver transaminase levels; R79.89 Other specified abnormal findings of blood chemistry; L98.9 Disorder of the skin and subcutaneous tissue, unspecified; J44.9 Chronic obstructive pulmonary disease, unspecified; R29.6 Repeated falls; D53.9 Nutritional anemia, unspecified
CPT/HCPCS: 36415; 64415; 71046; 76942; 80048; 80053; 81001; 82550; 82607; 83605; 83735; 83880; 84484; 85025; 85610; 85730; 86850; 86900; 86901; 86920; 87635; 88305; 88311; 94640; 94760; 96374; 96375; 99285